=== PATIENT | female | born 1940 ===

== ENCOUNTER 2016-12-07 02:54 | Observation (INO) | payer MEDICARE ==
[2016-12-07 02:54] VITALS: BMI 26.7
[2016-12-07] MEDS ORDERED: Aspirin 325 mg EC Tablets PO STA (04:02)
[2016-12-07] MEDS ORDERED: Aspirin 325 mg EC Tablets PO ONE (04:07)
[2016-12-07 04:17] LABS: BASO % 0.1 % (0.0-2.0); EOS # 0.3 K/uL (0.0-0.7); EOS % 4.7 % (0.0-4.0); HEMATOCRIT 38.4 % (34.0-47.0); LYMPH # 1.2 K/uL (1.0-4.3); LYMPH % 18.1 % (20.0-40.0); MEAN CELL VOLUME 82.8 fL (81.0-99.0); MEAN CORPUSCULAR HEMOGLOBIN 27.5 pg (27.0-31.0); MEAN CORPUSCULAR HGB CONC 33.2 g/dL (33.0-37.0); MEAN PLATELET VOLUME 8.4 fL (7.2-11.7); MONO # 0.6 K/uL (0.0-0.8); MONO % 8.8 % (0.0-10.0); NRBC % 0.1 % (0.0-2.0); RED CELL DISTRIBUTION WIDTH 14.2 % (11.5-14.5); WHITE BLOOD COUNT 6.6 K/uL (4.8-10.8)
[2016-12-07 04:48] LABS: CHLORIDE 101 mmol/L (98-107); POTASSIUM 3.9 mmol/L (3.6-5.2); SODIUM 135 mmol/L (132-148)
[2016-12-07 04:50] LABS: ALKALINE PHOSPHATASE 111 U/L (38-126); AST/SGOT 43 U/L (14-36); BILIRUBIN,TOTAL 0.7 mg/dL (0.2-1.3); CARBON DIOXIDE 24 mmol/L (22-30); GFR AFRICAN-AMERICAN > 60; TOTAL PROTEIN 8.3 g/dL (6.3-8.3)
[2016-12-07 04:51] LABS: ALT/SGPT 30 U/L (9-52); BLOOD UREA NITROGEN 11 mg/dL (7-17); CALCIUM 9.5 mg/dl (8.6-10.4); GLUCOSE,RANDOM 124 mg/dL (65-105)
--- NOTE | 2016-12-07 04:54 | C.PDOC ---
History Of Present Illness 76 y/o female, PMHx including hypertension and heart disease, presents to ED with mid sternal chest pain. Patient reports that the chest pain is associated with dizziness and elevated BP. Patient notes she has been upset and anxious all day, since she spent mother's day alone, and got into an argument with her children. Otherwise, denies fever, chills, shortness of breath, nausea, vomiting , diaphoresis, numbness, weakness, trauma, or other associated symptoms. Time Seen by Provider: 12/07/16 03:38 Chief Complaint (Nursing): Dizziness/Lightheaded History Per: Patient History/Exam Limitations: no limitations Onset/Duration Of Symptoms: Hrs Current Symptoms Are (Timing): Still Present Seizure Or Post-ictal Symptoms: None Fall Associated With With Symptoms: No Recent travel outside of the [place]: No Past Medical History Reviewed: Historical Data, Nursing Documentation, Vital Signs Vital Signs: Last Vital Signs Temp 97.9 F 12/07/16 03:09 Pulse 78 12/07/16 06:16 Resp 18 12/07/16 06:16 BP 157/86 H 12/07/16 06:16 Pulse Ox 99 12/07/16 06:16 - Medical History PMH: Arthritis (gouty arthritis), CAD, HTN, Osteoporosis, Chronic Kidney Disease , Rheumatoid Arthritis Surgical History: Coronary Stent (x2) Family History: States: No Known Family Hx - Social History Hx Tobacco Use: No Hx Alcohol Use: No Hx Substance Use: No - Immunization History Hx Tetanus Toxoid Vaccination: No Hx Influenza Vaccination: No Hx Pneumococcal Vaccination: No Review Of Systems Except As Marked, All Systems Reviewed And Found Negative. Constitutional: Negative for: Fever, Chills Cardiovascular: Positive for: Chest Pain. Negative for: Palpitations Respiratory: Negative for: Cough, Shortness of Breath, Wheezing Gastrointestinal: Negative for: Nausea, Vomiting, Abdominal Pain Skin: Negative for: Rash Neurological: Positive for: Dizziness. Negative for: Headache Physical Exam - Physical Exam Appears: Non-toxic, No Acute Distress, Other (speaking in full sentences) Skin: Warm, Dry, No Diaphoretic Head: Atraumatic, Normacephalic Eye(s): bilateral: Normal Inspection, PERRL, EOMI Oral Mucosa: Moist Neck: Normal ROM, Supple Chest: Symmetrical Cardiovascular: Rhythm Regular, No Friction Rub, No Murmur Respiratory: Normal Breath Sounds, No Rales, No Rhonchi, No Wheezing Gastrointestinal/Abdominal: Soft, No Tenderness, No Guarding, No Rebound Back: Normal Inspection, No Vertebral Tenderness, No Paraspinal Tenderness Extremity: Normal ROM, No Calf Tenderness, Capillary Refill (< 2 sec. ), Other ( no tenderness or swelling to bilateral lower extremities) Extremity: Bilateral: Normal Color And Temperature Pulses: Left Radial: Normal, Right Radial: Normal, Left Dorsalis Pedis: Normal, Right Dorsalis Pedis: Normal Neurological/Psych: Oriented x3, Normal Speech, Normal Cognition, Normal Motor Gait: Steady ED Course And Treatment - Laboratory Results Result Diagrams: 12/07/16 04:12 12/07/16 04:30 ECG: Interpreted By Ia ECG Rhythm: Sinus Rhythm ECG Interpretation: Normal Rate From EC (bpm) O2 Sat by Pulse Oximetry: 99 (RA) Pulse Ox Interpretation: Normal - Radiology CXR: Interpreted by Me CXR Interpretation: Yes: No Acute Disease. No: Infiltrates Medical Decision Making Medical Decision Making: Patient reports that she had an outpatient MRI for headache and dizziness, as the dizziness has been constant for several weeks but does not know the results. Old records reviewed, the patient was last seen in the ED for chest pain 07/2015 and was admitted for observation. Aspirin and Nitro-paste ordered. Patient reports improvement after nitro-paste. The case was discussed with Dr. Ruggiero (covering for Dr. Eric) who states to admit the patient to hospitalist service. Case was discussed with Dr. Rodriguez who agrees to place the patient on Tele OBS. Disposition - Disposition Disposition: HOSPITALIZED Disposition Time: 06:44 Condition: FAIR - POA Present On Arrival: None - Clinical Impression Clinical Impression: Chest pain, Dizziness
[2016-12-07 04:56] LABS: ALB/GLOB RATIO 0.8 (1.0-2.1)
[2016-12-07] MEDS ORDERED: Nitroglycerin 2% Ointment Foilpak UD TOP ONE (05:22)
[2016-12-07] MEDS ORDERED: Nitroglycerin 2% Ointment Foilpak UD TOP STA (05:30)
--- NOTE | 2016-12-07 07:36 | CT ---
EXAM: CT Head Without Intravenous Contrast CLINICAL HISTORY: 76 years old, female; Signs and symptoms; Dizziness; Additional info: Headache, dizziness TECHNIQUE: Axial computed tomography images of the head/brain without intravenous contrast. This CT exam was performed using one or more of the following dose reduction techniques: automated exposure control, adjustment of the mA and/or kV according to patient size, and/or use of iterative reconstruction technique. EXAM DATE/TIME: 12/07/2016 6:38 AM COMPARISON: CT - HEAD W/O CONTRAST 07/30/2015 9:19:02 AM FINDINGS: There is no pathological intra-axial or extra-axial fluid collection. No edema, midline shift or mass effect is noted. There is normal trejo white differentiation. There foci of periventricular and subcortical white matter changes of small vessel ischemic changes. Senile basal ganglia calcifications are noted. There are vascular calcifications of the cavernous carotid arteries. Calvarium is unremarkable. Visualized paranasal sinuses are well aerated. IMPRESSION: 1. No acute cerebral hemorrhage or edema. 2. Small vessel ischemic disease.
--- NOTE | 2016-12-07 09:17 | RAD ---
HISTORY: chest pain COMPARISON: 09/18/2016 FINDINGS: LUNGS: No active pulmonary disease. PLEURA: No significant pleural effusion identified, no pneumothorax apparent. CARDIOVASCULAR: Normal. OSSEOUS STRUCTURES: No significant abnormalities. VISUALIZED UPPER ABDOMEN: Normal. OTHER FINDINGS: None. IMPRESSION: No active disease.
--- NOTE | 2016-12-07 11:23 | CP.PCM.CON ---
History of Present Illness - History of Present Illness History of Present Illness: 76 y/o female with Hx/o liver/kidney transplant, CAD/PTCA & stenting, HTN, gouty arthritis was admitted last night for c/o chest pain & severe dizziness Pt had Liver/ kidney Tx several yrs ago @ [facility] in [place] & is folowed in their Tx clinic On Tacrolimus only Past Patient History - Infectious Disease Hx of Infectious Diseases: None - Past Medical History & Family History Past Medical History?: Yes - Past Social History Smoking Status: Never Smoked - CARDIAC Hx Hypertension: Yes - PULMONARY Hx Tuberculosis: No - NEUROLOGICAL HX Cerebrovascular Accident: No Hx Seizures: No - RENAL Hx Chronic Kidney Disease: Yes - ENDOCRINE/METABOLIC Hx Endocrine Disorders: No - HEMATOLOGICAL/ONCOLOGICAL Hx Cancer: No Hx Human Immunodeficiency Virus (HIV): No - MUSCULOSKELETAL/RHEUMATOLOGICAL Hx Arthritis: Yes (gouty arthritis) Hx Falls: No Hx Osteoporosis: Yes Hx Rheumatoid Arthritis: Yes - GASTROINTESTINAL Hx Gastrointestinal Disorders: Yes Other/Comment: LIVER TRANSPLANT 20 years ago - GENITOURINARY/GYNECOLOGICAL Hx Sexually Transmitted Disorders: No - PSYCHIATRIC Hx Substance Use: No - SURGICAL HISTORY Hx Coronary Stent: Yes (x2) - ANESTHESIA Hx Anesthesia: Yes Hx Anesthesia Reactions: No Hx Malignant Hyperthermia: No Meds Allergies/Adverse Reactions: Allergies Allergy/AdvReac Type Severity Reaction Status Date / Time iodine Allergy Verified 12/07/16 03:17 Penicillins Allergy Verified 12/07/16 03:17 Sulfa (Sulfonamide Allergy Verified 12/07/16 03:17 Antibiotics) prednisone AdvReac Severe Verified 12/07/16 03:17 seafood Allergy Uncoded 12/07/16 03:17 - Medications Medications: Current Medications Amlodipine Besylate (Norvasc) 10 mg PO DAILY [facility] Last Admin: 12/07/16 09:49 Dose: 10 mg Aspirin (Aspirin Chewable) 81 mg PO DAILY [facility] Last Admin: 12/07/16 09:49 Dose: 81 mg Hydralazine HCl (Apresoline) 25 mg PO TID [facility] Labetalol HCl (Trandate) 100 mg PO BID [facility] Last Admin: 12/07/16 10:35 Dose: 100 mg Tacrolimus (Prograf Cap) 0.5 mg PO BID [facility] Last Admin: 12/07/16 10:35 Dose: 0.5 mg Zolpidem Tartrate (Ambien) 5 mg PO [facility] Physical Exam - Constitutional Appears: No Acute Distress - Head Exam Head Exam: ATRAUMATIC, NORMOCEPHALIC - Eye Exam Additional comments: No icterus Conjunctiva pink - ENT Exam ENT Exam: Mucous Membranes Moist - Neck Exam Additional comments: Neck supple - Respiratory Exam Additional comments: Lungs clear - Cardiovascular Exam Cardiovascular Exam: REGULAR RHYTHM - GI/Abdominal Exam GI & Abdominal Exam: Soft Additional comments: Nontender - Extremities Exam Additional comments: No edema or cyanosis - Neurological Exam Neurological exam: Alert, CN II-XII Intact, Oriented x3 Results - Vital Signs Recent Vital Signs: Last Vital Signs Temp 98 F 12/07/16 09:16 Pulse 78 12/07/16 09:16 Resp 20 12/07/16 09:16 BP 184/96 H 12/07/16 09:16 Pulse Ox 97 12/07/16 09:16 - Labs Result Diagrams: 12/07/16 04:12 12/07/16 04:30 Labs: Laboratory Results - last 24 hr 12/07/16 08:43 POC Glucose (mg/dL) 113 H Assessment & Plan - Assessment and Plan (Free Text) Assessment: ESRd s/p liver & kidney transplant Renal function has remained stable HTN CAD Plan: Control BP Continue to monitor renal function Mx oc chest pain per Cardiology
--- NOTE | 2016-12-07 11:33 | CON ---
DATE: 12/07/2016 HISTORY OF PRESENT ILLNESS: The patient is a 76-year-old female who has a history of hypert ension, status post liver and kidney transplant many years ago because of parasitic infestation in [place] country about a year ago. The patient also has history of coronary artery disease, status pos t left anterior descending stenting many years ago. She presented because of dizziness, followed by sharp chest pain and was noted to have uncontrolled hypertension. The patient denies any radiation o f her chest discomfort. The patient is experiencing an anxiety disorder. She lives by herself and d oes not usually get along with her family who lives in the [facility] because she does not like country living. There is no reported ventricular arrhythmia on the monitor, except for rare PVCs. The patie nt at this time denies any chest pain, dizziness, headache or shortness of breath. SOCIAL HISTORY: Nonsmoker, nondrinker. MEDICATIONS: Ambien 5 mg at bedtime, aspirin 81 mg once a day, Norvasc 10 mg once a day, Prograf 0.5 mg twice a day, labetalol 100 mg twice a day. REVIEW OF SYSTEMS: No nausea or vomiting. No fever or chills. PHYSICAL EXAMINATION: GENERAL: The patient is an elderly female who does not appear to be in acute distress. VITAL SIGNS: Blood pressure 184/96, heart rate 78, temperature 98, respirations 20. HEENT: Normocephalic. NECK: No JVD. CHEST: Clear. HEART: S1, S2 regular. ABDOMEN: Soft. EXTREMITIES: No edema. LABORATORY DATA: SMA-7 is within normal limits except for glucose 124. One set of troponins is nega tive. CBC: WBC 6.6, hemoglobin and hematocrit are 12.7 and 38.4, platelet count 203,000. Head CT scan without contrast revealed no acute findings, small vessel disease. EKG revealed sinus r hythm at a rate of 69. One PVC is noted. ASSESSMENT: 1. Atypical chest pain or myocardial infarction. 2. Uncontrolled hypertension. 3. History of coronary artery disease status post left anterior descending stenting many years ago. 4. History of liver and kidney transplant. RECOMMENDATIONS: Continue aspirin 81 mg once a day, Norvasc 10 mg once a day, labetalol 100 mg twice a day. Start hydralazine at 25 mg q. 8 hours. Obtain one more set of troponins as well as 12-lead EKG. Walter Cook MD cc: [id number] TT: 12/07/2016 11:32:37 Confirmation # [id number] Dictation # [id number] mn
--- NOTE | 2016-12-07 12:03 | CP.PCM.HP ---
<Yannick Weldon - Last Filed: 12/07/16 11:58> History of Present Illness - History of Present Illness History of Present Illness: This is a 76 yo female with past medical hx of kidney transplant, liver transplant, CAD presenting with chest pain x 1 day. Pain began about noon day prior. Pt at home walking around. Substernal, no radiation. Sensation is "pressure." [place] dizzy as well. Checked bp and systolic was in 200s. Went to walk to the store, still felt very dizzy with cp remaining. Decided to go to hospital. CP stopped once pt came to hospital, otherwise it was constant. Has happened before, around 's day. Could not say what was done for her at that time. Denies fevers, chills, vomiting, diarrhea. No sick contacts, no recent travel. No cough PMH: Kidney transplant, liver transplant, CAD, HTN PSH: Stent, transplants as above Current meds: zolpidem, tacrolimus, tramadol, labetalol, amlodipine FH: Heart dx in family. Social hx: No smoking, drinking, drugs. Lives in [place]. Born in [place]. Present on Admission - Present on Admission Any Indicators Present on Admission: No History of DVT/PE: No History of Uncontrolled Diabetes: No Urinary Catheter: No Decubitus Ulcer Present: No Review of Systems - Review of Systems All systems: reviewed and no additional remarkable complaints except Review of Systems: Negative except as per hpi. Past Patient History - Infectious Disease Hx of Infectious Diseases: None - Tetanus Immunizations Tetanus Immunization: Unknown - Past Medical History & Family History Past Medical History?: Yes Pertinent Family History: Heart dx - Past Social History Smoking Status: Never Smoked Chewing Tobacco Use: No Cigar Use: No Alcohol: None Drugs: Denies Home Situation {Lives}: Alone Domestic Violence: Negative - CARDIAC Hx Hypertension: Yes - PULMONARY Hx Tuberculosis: No - NEUROLOGICAL HX Cerebrovascular Accident: No Hx Seizures: No - RENAL Hx Chronic Kidney Disease: Yes - ENDOCRINE/METABOLIC Hx Endocrine Disorders: No - HEMATOLOGICAL/ONCOLOGICAL Hx Cancer: No Hx Human Immunodeficiency Virus (HIV): No - MUSCULOSKELETAL/RHEUMATOLOGICAL Hx Arthritis: Yes (gouty arthritis) Hx Falls: No Hx Osteoporosis: Yes Hx Rheumatoid Arthritis: Yes - GASTROINTESTINAL Hx Gastrointestinal Disorders: Yes Other/Comment: LIVER TRANSPLANT 20 years ago - GENITOURINARY/GYNECOLOGICAL Hx Sexually Transmitted Disorders: No - PSYCHIATRIC Hx Substance Use: No - SURGICAL HISTORY Hx Coronary Stent: Yes (x2) - ANESTHESIA Hx Anesthesia: Yes Hx Anesthesia Reactions: No Hx Malignant Hyperthermia: No Meds Allergies/Adverse Reactions: Allergies Allergy/AdvReac Type Severity Reaction Status Date / Time iodine Allergy Verified 12/07/16 03:17 Penicillins Allergy Verified 12/07/16 03:17 Sulfa (Sulfonamide Allergy Verified 12/07/16 03:17 Antibiotics) prednisone AdvReac Severe Verified 12/07/16 03:17 seafood Allergy Uncoded 12/07/16 03:17 Physical Exam - Constitutional Appears: Non-toxic, No Acute Distress - Head Exam Head Exam: ATRAUMATIC, NORMAL INSPECTION - Eye Exam Eye Exam: EOMI - ENT Exam ENT Exam: Mucous Membranes Moist - Neck Exam Neck exam: Positive for: Full Rom, Normal Inspection - Respiratory Exam Respiratory Exam: NORMAL BREATHING PATTERN. absent: Respiratory Distress - Cardiovascular Exam Cardiovascular Exam: REGULAR RHYTHM, +S1, +S2 - GI/Abdominal Exam GI & Abdominal Exam: Normal Bowel Sounds, Soft. absent: Tenderness - Extremities Exam Extremities exam: Positive for: full ROM, normal inspection - Back Exam Back exam: NORMAL INSPECTION - Neurological Exam Neurological exam: Alert, CN II-XII Intact, Oriented x3 - Psychiatric Exam Psychiatric exam: Normal Affect, Normal Mood - Skin Skin Exam: Dry, Intact, Normal Color, Warm Results - Vital Signs Recent Vital Signs: Last Vital Signs Temp 98 F 12/07/16 09:16 Pulse 78 12/07/16 09:16 Resp 20 12/07/16 09:16 BP 184/96 H 12/07/16 09:16 Pulse Ox 97 12/07/16 09:16 - Labs Result Diagrams: 12/07/16 04:12 12/07/16 04:30 Labs: Laboratory Results - last 24 hr 12/07/16 12/07/16 08:43 11:31 POC Glucose (mg/dL) 113 H Troponin I < 0.0120 Assessment & Plan - Assessment and Plan (Free Text) Assessment: This is a 76 yo female with pmh liver and kidney transplant, HTN, CAD presenting with cp x 1 day, now resolved 1. Chest pain, r/o acs -f/u troponins -f/u repeat ekg -1st trop negative -cardio consult. Dr. Ornelas. recs appreciated -ASA 81 daily -labetalol 100 bid -echo pending 2. Hx of transplants -continue tacrolimus .5 Bid -nephro consult. Dr. Eric. recs appreciated 3. Hx of HTN -amlodipine 10 daily -labetalol 100 bid GI/DVT ppx -protonix daily -SCDs discussed with Dr. Ugarte <Brandin Ugarte - Last Filed: 12/08/16 09:23> Results - Vital Signs Recent Vital Signs: Last Vital Signs Temp 98 F 12/07/16 09:16 Pulse 67 12/08/16 08:31 Resp 20 12/07/16 09:16 BP 184/96 H 12/07/16 09:16 Pulse Ox 97 12/07/16 09:16 - Labs Result Diagrams: 12/08/16 06:43 12/08/16 06:43 Labs: Laboratory Results - last 24 hr 12/07/16 12/07/16 12/07/16 11:31 12:16 17:30 WBC RBC Hgb Hct MCV MCH MCHC RDW Plt Count MPV Neut % (Auto) Lymph % (Auto) [place] % (Auto) Eos % (Auto) Baso % (Auto) Neut # Lymph # [place] # Eos # Baso # Sodium Potassium Chloride Carbon Dioxide Anion Gap BUN Creatinine Est GFR ( Amer) Est GFR (Non-Af Amer) POC Glucose (mg/dL) 127 H Random Glucose Calcium Magnesium Total Bilirubin AST ALT Alkaline Phosphatase Troponin I < 0.0120 < 0.0120 Total Protein Albumin Globulin Albumin/Globulin Ratio 12/08/16 12/08/16 06:43 06:43 WBC 5.5 RBC 4.77 Hgb 13.2 Hct 39.8 MCV 83.4 MCH 27.7 MCHC 33.2 RDW 14.4 Plt Count 205 MPV 8.3 Neut % (Auto) 52.0 Lymph % (Auto) 32.0 [place] % (Auto) 13.1 H Eos % (Auto) 2.2 Baso % (Auto) 0.7 Neut # 2.9 Lymph # 1.8 [place] # 0.7 Eos # 0.1 Baso # 0.0 Sodium 138 Potassium 3.6 Chloride 100 Carbon Dioxide 26 Anion Gap 15 BUN 13 Creatinine 1.0 Est GFR ( Amer) > 60 Est GFR (Non-Af Amer) 54 POC Glucose (mg/dL) Random Glucose 125 H Calcium 9.0 Magnesium 1.8 Total Bilirubin 0.9 AST 42 H ALT 33 Alkaline Phosphatase 104 Troponin I Total Protein 7.3 Albumin 3.5 Globulin 3.8 Albumin/Globulin Ratio 0.9 L Attending/Attestation - Attestation I have personally seen and examined this patient.: Yes I have fully participated in the care of the patient.: Yes I have reviewed all pertinent clinical information: Yes Notes (Text): Medical Attending: Patient was seen and examined by me. Agree with the above note by the medical sonographer. The patient has a substantial history including cardiac stenting in the past, liver, renal tissue transplant as well. The patient was having substatinal chest pain before comming to the hospital. When we saw her that morning the pain had subsided and she was ambulating in the ER. Because of the cardiac history will get cardiology evaluation and also nephrology evaluation as well. Will get additional cardiac enzymes as well as 2 decho ordered. thank you Brandin Ugarte
[2016-12-08 06:54] LABS: CHLORIDE 100 mmol/L (98-107); POTASSIUM 3.6 mmol/L (3.6-5.2); SODIUM 138 mmol/L (132-148)
[2016-12-08 06:56] LABS: BILIRUBIN,TOTAL 0.9 mg/dL (0.2-1.3); CARBON DIOXIDE 26 mmol/L (22-30); GFR AFRICAN-AMERICAN > 60
[2016-12-08 06:57] LABS: ALB/GLOB RATIO 0.9 (1.0-2.1); ALKALINE PHOSPHATASE 104 U/L (38-126); ALT/SGPT 33 U/L (9-52); AST/SGOT 42 U/L (14-36); BLOOD UREA NITROGEN 13 mg/dL (7-17); GLUCOSE,RANDOM 125 mg/dL (65-105); MAGNESIUM 1.8 mg/dL (1.6-2.3); TOTAL PROTEIN 7.3 g/dL (6.3-8.3)
[2016-12-08 07:08] LABS: BASO % 0.7 % (0.0-2.0); EOS # 0.1 K/uL (0.0-0.7); EOS % 2.2 % (0.0-4.0); HEMATOCRIT 39.8 % (34.0-47.0); LYMPH # 1.8 K/uL (1.0-4.3); MEAN CELL VOLUME 83.4 fL (81.0-99.0); MEAN CORPUSCULAR HEMOGLOBIN 27.7 pg (27.0-31.0); MEAN CORPUSCULAR HGB CONC 33.2 g/dL (33.0-37.0); MEAN PLATELET VOLUME 8.3 fL (7.2-11.7); MONO # 0.7 K/uL (0.0-0.8); MONO % 13.1 % (0.0-10.0); RED CELL DISTRIBUTION WIDTH 14.4 % (11.5-14.5); WHITE BLOOD COUNT 5.5 K/uL (4.8-10.8)
[2016-12-08 08:42] VITALS: PULSE 67
[2016-12-08 09:13] VITALS: BP 142/68; RESP 14; TEMP 97.8; O2SAT 100
--- NOTE | 2016-12-08 10:03 | CARD ---
APPROVED REPORT EXAM: Two-dimensional and M-mode echocardiogram with Doppler and color Doppler. Other Information Quality : GoodRhythm : NSR INDICATION Chest Pain Stent M-Mode DIMENSIONS Left Atrium (MM)4.10 (2.5-4.0cm)IVSd1.17 (0.7-1.1cm) Aortic Root3.67 (2.2-3.7cm)LVDd5.00 (4.0-5.6cm) Aortic Cusp Exc.1.13 (1.5-2.0cm)PWd1.25 (0.7-1.1cm) Aortic Valve AoV Peak Wceekyvl461.7cm/Sunny Peak GR.9mmHgAI P 1/2 [id number] Mitral Valve MV E Aitletiq56.4cm/sMV A Gnbylfzw159.4cm/sE/A ratio0.6 TDI E/Lateral E'0.0E/Medial E'0.0 Tricuspid Valve TR Peak Erjzgeja886uh/sTR Peak Gr.21gdFwNCME20pjVx <Conclusion> Left ventricle: thickness: upper limit of normal; size: normal; overall ejection fraction: 65%: diastolic filling pressures: elevated Mitral valve: annulus: discrete calcification: leaflets: mild calcific thickening; excursion: normal; no significant trans-mitral gradient: mild incompetence: left atrium: dilated Aortic valve: leaflets: mild calcific thickening: excursion: normal; no significant trans-aortic gradient: No significant incompetence: aortic root: upper limit of normal Right sided Structures: Pulmonary valve: normal; no significant incompetence; Tricuspid valve: normal; no significant incompetence: Intra-cardiac hemodynamics: pulmonary systolic pressures: normal; central venous pressures: normal No pericardial effusion
--- NOTE | 2016-12-08 11:30 | PN ---
DATE: 12/08/2016 The patient denies any chest pain, dizziness or headache. PHYSICAL EXAMINATION: VITAL SIGNS: Blood pressure 142/68, heart rate 67, temperature 97.8, respirations 14. HEENT: Normocephalic. NECK: No JVD. CHEST: Clear. HEART: S1, S2 regular. ABDOMEN: Soft. EXTREMITIES: No edema. LABORATORIES: Three sets of troponins are negative. Today's SMA-7 is within normal limits except fo r glucose of 125. CBC is within normal limits except for monocytes 13.1%. Repeat 12-lead EKG reveal ed normal sinus rhythm. Echocardiographic study official report: Ejection fraction 65%, diastolic f illing pressures elevated, mitral valve annular discrete calcification. Leaflets mild calcific thick ening, normal excursion ASSESSMENT: 1. Atypical chest pain, myocardial infarction is ruled out. 2. Uncontrolled hypertension. 3. Status post liver and kidney transplant. RECOMMENDATIONS: Continue Trandate 100 mg twice a day, Norvasc at 10 mg once a day, aspirin 81 mg on ce a day, hydralazine 25 mg t.i.d. No further cardiac workup is indicated at this time. Walter Cook MD cc: [id number] TT: 12/08/2016 11:29:54 Confirmation # [id number] Dictation # [id number] tn
--- NOTE | 2016-12-08 11:55 | CP.PCM.PN ---
Subjective - Date & Time of Evaluation Date of Evaluation: 12/08/16 Time of Evaluation: 11:30 - Subjective Subjective: No c/o CP or dizziness Objective - Vital Signs/Intake and Output Vital Signs (last 24 hours): Temp Pulse Resp BP Pulse Ox 97.8 F 67 14 142/68 100 12/08/16 09:11 12/08/16 09:24 12/08/16 09:11 12/08/16 09:11 12/08/16 09:11 Intake and Output: 12/08/16 12/08/16 06:59 18:59 Intake Total 300 Output Total 260 Balance 40 - Medications Medications: Current Medications Amlodipine Besylate (Norvasc) 10 mg PO DAILY [facility] Last Admin: 12/08/16 11:49 Dose: 10 mg Aspirin (Aspirin Chewable) 81 mg PO DAILY [facility] Last Admin: 12/08/16 11:49 Dose: 81 mg Hydralazine HCl (Apresoline) 25 mg PO TID [facility] Last Admin: 12/08/16 11:49 Dose: 25 mg Labetalol HCl (Trandate) 100 mg PO BID [facility] Last Admin: 12/08/16 11:49 Dose: 100 mg Pantoprazole Sodium (Protonix Inj) 40 mg IVP DAILY [facility] Last Admin: 12/08/16 11:48 Dose: 40 mg Tacrolimus (Prograf Cap) 0.5 mg PO BID [facility] Last Admin: 12/08/16 11:49 Dose: 0.5 mg Zolpidem Tartrate (Ambien) 5 mg PO HS [facility] Last Admin: 12/07/16 22:00 Dose: 5 mg - Labs Labs: 12/08/16 06:43 12/08/16 06:43 - Respiratory Exam Additional comments: Lungs clear - Cardiovascular Exam Cardiovascular Exam: REGULAR RHYTHM - Extremities Exam Additional comments: No edema Assessment and Plan - Assessment and Plan (Free Text) Assessment: ESRd, Liver, kidney transplant Renal function remains stable Continue current meds
--- NOTE | 2016-12-08 14:52 | CP.PCM.DIS ---
<Yannick Weldon - Last Filed: 12/08/16 14:55> Provider - Provider Date of Admission: 12/07/16 06:46 Attending physician: Ozzy Rodriguez MD Consults: 1. Cardio- Dr. Ornelas 2. Nephro- Dr. Ruggiero Time Spent in preparation of Discharge (in minutes): 45 Hospital Course - Lab Results Lab Results: Most Recent Lab Values WBC 5.5 K/uL (4.8-10.8) 12/08/16 06:43 RBC 4.77 Mil/uL (3.80-5.20) 12/08/16 06:43 Hgb 13.2 g/dL (11.0-16.0) 12/08/16 06:43 Hct 39.8 % (34.0-47.0) 12/08/16 06:43 MCV 83.4 fL (81.0-99.0) 12/08/16 06:43 MCH 27.7 pg (27.0-31.0) 12/08/16 06:43 MCHC 33.2 g/dL (33.0-37.0) 12/08/16 06:43 RDW 14.4 % (11.5-14.5) 12/08/16 06:43 Plt Count 205 K/uL (130-400) 12/08/16 06:43 MPV 8.3 fL (7.2-11.7) 12/08/16 06:43 Neut % (Auto) 52.0 % (50.0-75.0) 12/08/16 06:43 Lymph % (Auto) 32.0 % (20.0-40.0) 12/08/16 06:43 [place] % (Auto) 13.1 % (0.0-10.0) H 12/08/16 06:43 Eos % (Auto) 2.2 % (0.0-4.0) 12/08/16 06:43 Baso % (Auto) 0.7 % (0.0-2.0) 12/08/16 06:43 Neut # 2.9 K/uL (1.8-7.0) 12/08/16 06:43 Lymph # 1.8 K/uL (1.0-4.3) 12/08/16 06:43 [place] # 0.7 K/uL (0.0-0.8) 12/08/16 06:43 Eos # 0.1 K/uL (0.0-0.7) 12/08/16 06:43 Baso # 0.0 K/uL (0.0-0.2) 12/08/16 06:43 Sodium 138 mmol/L (132-148) 12/08/16 06:43 Potassium 3.6 mmol/L (3.6-5.2) 12/08/16 06:43 Chloride 100 mmol/L (98-107) 12/08/16 06:43 Carbon Dioxide 26 mmol/L (22-30) 12/08/16 06:43 Anion Gap 15 (10-20) 12/08/16 06:43 BUN 13 mg/dL (7-17) 12/08/16 06:43 Creatinine 1.0 MG/DL (0.7-1.2) 12/08/16 06:43 Est GFR ( Amer) > 60 12/08/16 06:43 Est GFR (Non-Af Amer) 54 12/08/16 06:43 POC Glucose (mg/dL) 127 mg/dL (65-110) H 12/07/16 12:16 Random Glucose 125 mg/dL (65-105) H 12/08/16 06:43 Calcium 9.0 mg/dl (8.6-10.4) 12/08/16 06:43 Magnesium 1.8 mg/dL (1.6-2.3) 12/08/16 06:43 Total Bilirubin 0.9 mg/dL (0.2-1.3) 12/08/16 06:43 AST 42 U/L (14-36) H 12/08/16 06:43 ALT 33 U/L (9-52) 12/08/16 06:43 Alkaline Phosphatase 104 U/L (38-126) 12/08/16 06:43 Troponin I < 0.0120 ng/mL (0.00-0.120) 12/07/16 17:30 Total Protein 7.3 g/dL (6.3-8.3) 12/08/16 06:43 Albumin 3.5 g/dL (3.5-5.0) 12/08/16 06:43 Globulin 3.8 gm/dL (2.2-3.9) 12/08/16 06:43 Albumin/Globulin Ratio 0.9 (1.0-2.1) L 12/08/16 06:43 - Hospital Course Hospital Course: Attending: Dr. Ugarte Consults 1. Cardio- Dr. Upton 2. Nephro- Dr. Ruggiero Discharge dx 1. Chest pain 2. Hx nephro/liver transplant 3. HTN Stable upon discharge Procedures- none No complications HPI: see h/p Lab : see lab data section Hospital course This is a 76 yo female with pmh liver and kidney transplant, HTN, CAD presenting with cp x 1 day, now resolved 1. Chest pain, r/o acs -f/u troponins>>> trops negative x 3 -f/u repeat ekg>>> repeat ekg NSR -cardio consult. Dr. Ornelas. recs appreciated -ASA 81 daily -labetalol 100 bid -echo pending -pt was started on hydralazine 2. Hx of transplants -continue tacrolimus .5 Bid -nephro consult. Dr. Eric. recs appreciated 3. Hx of HTN -amlodipine 10 daily -labetalol 100 bid -added hydralazine GI/DVT ppx -protonix daily -SCDs -pt will be given home rx for meclizine -On day of discharge, pt stable and feels better with no chest pain. Discharge meds: 1. norvasc 10 daily 2. asa 81 daily 3. hydralazine 25 TID 4. labetalol 100 bid 5. meclizine prn 6. tacrolimus .5 bid 7. ambien 10 hs 8. tramadol 50 bid Discharge instructions: Pt to resume all home meds with addn of hydralazine and meclizine prn. Pt to f/ u with nephro and cardio. Please return if condition worsens and please f/u with PMD within 3 days. - Date & Time of H&P Date of H&P: 12/08/16 Time of H&P: 14:45 Discharge Exam - Head Exam Head Exam: ATRAUMATIC, NORMAL INSPECTION Discharge Plan - Discharge Medications Prescriptions: hydrALAZINE [Apresoline] 25 mg PO TID #30 tab Meclizine [Meclizine*] 25 mg PO Q6 PRN #30 tab PRN Reason: Dizziness - Follow Up Plan Condition: FAIR Disposition: HOME/ ROUTINE Instructions: Chest Pain (DC), Syncope (DC), Syncope (GEN), How To Wash Your Hands (GEN), Dizziness (GEN) <Brandin Ugarte - Last Filed: 12/08/16 18:26> Provider - Provider Date of Admission: 12/07/16 06:46 Attending physician: Ozzy Rodriguez MD Hospital Course - Lab Results Lab Results: Most Recent Lab Values WBC 5.5 K/uL (4.8-10.8) 12/08/16 06:43 RBC 4.77 Mil/uL (3.80-5.20) 12/08/16 06:43 Hgb 13.2 g/dL (11.0-16.0) 12/08/16 06:43 Hct 39.8 % (34.0-47.0) 12/08/16 06:43 MCV 83.4 fL (81.0-99.0) 12/08/16 06:43 MCH 27.7 pg (27.0-31.0) 12/08/16 06:43 MCHC 33.2 g/dL (33.0-37.0) 12/08/16 06:43 RDW 14.4 % (11.5-14.5) 12/08/16 06:43 Plt Count 205 K/uL (130-400) 12/08/16 06:43 MPV 8.3 fL (7.2-11.7) 12/08/16 06:43 Neut % (Auto) 52.0 % (50.0-75.0) 12/08/16 06:43 Lymph % (Auto) 32.0 % (20.0-40.0) 12/08/16 06:43 [place] % (Auto) 13.1 % (0.0-10.0) H 12/08/16 06:43 Eos % (Auto) 2.2 % (0.0-4.0) 12/08/16 06:43 Baso % (Auto) 0.7 % (0.0-2.0) 12/08/16 06:43 Neut # 2.9 K/uL (1.8-7.0) 12/08/16 06:43 Lymph # 1.8 K/uL (1.0-4.3) 12/08/16 06:43 [place] # 0.7 K/uL (0.0-0.8) 12/08/16 06:43 Eos # 0.1 K/uL (0.0-0.7) 12/08/16 06:43 Baso # 0.0 K/uL (0.0-0.2) 12/08/16 06:43 Sodium 138 mmol/L (132-148) 12/08/16 06:43 Potassium 3.6 mmol/L (3.6-5.2) 12/08/16 06:43 Chloride 100 mmol/L (98-107) 12/08/16 06:43 Carbon Dioxide 26 mmol/L (22-30) 12/08/16 06:43 Anion Gap 15 (10-20) 12/08/16 06:43 BUN 13 mg/dL (7-17) 12/08/16 06:43 Creatinine 1.0 MG/DL (0.7-1.2) 12/08/16 06:43 Est GFR ( Amer) > 60 12/08/16 06:43 Est GFR (Non-Af Amer) 54 12/08/16 06:43 POC Glucose (mg/dL) 127 mg/dL (65-110) H 12/07/16 12:16 Random Glucose 125 mg/dL (65-105) H 12/08/16 06:43 Calcium 9.0 mg/dl (8.6-10.4) 12/08/16 06:43 Magnesium 1.8 mg/dL (1.6-2.3) 12/08/16 06:43 Total Bilirubin 0.9 mg/dL (0.2-1.3) 12/08/16 06:43 AST 42 U/L (14-36) H 12/08/16 06:43 ALT 33 U/L (9-52) 12/08/16 06:43 Alkaline Phosphatase 104 U/L (38-126) 12/08/16 06:43 Troponin I < 0.0120 ng/mL (0.00-0.120) 12/07/16 17:30 Total Protein 7.3 g/dL (6.3-8.3) 12/08/16 06:43 Albumin 3.5 g/dL (3.5-5.0) 12/08/16 06:43 Globulin 3.8 gm/dL (2.2-3.9) 12/08/16 06:43 Albumin/Globulin Ratio 0.9 (1.0-2.1) L 12/08/16 06:43 Attending/Attestation - Attestation I have personally seen and examined this patient.: Yes I have fully participated in the care of the patient.: Yes I have reviewed all pertinent clinical information, including history, physical exam and plan: Yes Notes (Text): 12/08/16 18:24 Medical Attending: Patient was seen and examined by me. She was evaluated by her leather dresser and pedodontist while here. Will DC to home. The patient reports she has a lot of stress at home. Her cardiac enzymes have been negative. She will need to follow up with her PMD. thank you Brandin Ugarte
--- NOTE | 2016-12-08 18:38 | CARD ---
APPROVED REPORT EKG Measurement Heart [id number] ND 186P50 [id number] <Conclusion> Normal sinus rhythm Normal ECG
--- NOTE | 2016-12-08 18:46 | CARD ---
APPROVED REPORT EKG Measurement Heart [id number] CO 188P43 [id number] <Conclusion> Sinus rhythm with occasional premature ventricular complexes Nonspecific ST abnormality Abnormal ECG
== END 2016-12-08 14:30 | disposition home or self-care (01) ==
LOC: C.ER 02:54 → C.9E 06:46 → C.9I 09:05
PROVIDERS: ADMIT Family Medicine; ATTEND Family Medicine
DX: R07.9 Chest pain, unspecified (principal); F41.9 Anxiety disorder, unspecified; M81.0 Age-related osteoporosis without current pathological fracture; Z94.0 Kidney transplant status; Z94.4 Liver transplant status; I10 Essential (primary) hypertension; I25.10 Atherosclerotic heart disease of native coronary artery without angina pectoris
CPT/HCPCS: 70450; 71010; 80053; 82948; 83735; 84484; 85025; 87081; 93005; 93306; 99285; C9113; G0378; J7507

== ENCOUNTER 2017-03-07 21:02 | Observation (INO) | payer MEDICARE ==
[2017-03-07 21:03] VITALS: BMI 26.7
[2017-03-07] MEDS ORDERED: Aspirin 325 mg EC Tablets PO STA (21:27)
[2017-03-07] MEDS ORDERED: Aspirin 325 mg EC Tablets PO ONE (21:50)
[2017-03-07 22:03] LABS: BASO % 0.7 % (0.0-2.0); EOS # 0.1 K/uL (0.0-0.7); EOS % 1.5 % (0.0-4.0); HEMATOCRIT 37.8 % (34.0-47.0); LYMPH # 1.6 K/uL (1.0-4.3); MEAN CELL VOLUME 81.9 fL (81.0-99.0); MEAN CORPUSCULAR HGB CONC 34.2 g/dL (33.0-37.0); MEAN PLATELET VOLUME 7.9 fL (7.2-11.7); MONO # 0.6 K/uL (0.0-0.8); MONO % 9.8 % (0.0-10.0); RED CELL DISTRIBUTION WIDTH 14.8 % (11.5-14.5); WHITE BLOOD COUNT 6.2 K/uL (4.8-10.8)
[2017-03-07 22:13] LABS: CHLORIDE 103 mmol/L (98-107)
[2017-03-07 22:14] LABS: POTASSIUM 4.1 mmol/L (3.6-5.2); SODIUM 141 mmol/L (132-148)
[2017-03-07 22:15] LABS: GFR AFRICAN-AMERICAN > 60
[2017-03-07 22:16] LABS: ALB/GLOB RATIO 0.9 (1.0-2.1); ALKALINE PHOSPHATASE 116 U/L (38-126); ALT/SGPT 35 U/L (9-52); AST/SGOT 35 U/L (14-36); BILIRUBIN,TOTAL 0.8 mg/dL (0.2-1.3); BLOOD UREA NITROGEN 15 mg/dL (7-17); CARBON DIOXIDE 25 mmol/L (22-30); GLUCOSE,RANDOM 101 mg/dL (65-105); TOTAL PROTEIN 7.9 g/dL (6.3-8.3)
--- NOTE | 2017-03-07 23:03 | C.PDOC ---
Time Seen by Provider: 03/07/17 21:10 Chief Complaint (Nursing): Chest Pain History Per: Patient Onset/Duration Of Symptoms: Hrs (Just ONCOLOGY RN) Current Symptoms Are (Timing): Better Context: Other (on bus ride from [place]) Severity: Moderate Quality: "Pain" Associated Symptoms: Dyspnea Modifying Factors: Other Indicated Below Alleviating Factors: None Additional History Per: Prior Records Past Medical History Reviewed: Historical Data, Nursing Documentation, Vital Signs Vital Signs: Last Vital Signs Temp 98.4 F 03/07/17 21:09 Pulse 75 03/07/17 21:09 Resp 18 03/07/17 21:09 BP 175/90 H 03/07/17 21:09 Pulse Ox 98 03/07/17 23:35 - Medical History PMH: Arthritis (gouty arthritis), CAD, HTN, Osteoporosis, Chronic Kidney Disease , Rheumatoid Arthritis Surgical History: Coronary Stent (x1) Other Surgeries: Liver and Kidney transplants Family History: States: Unknown Family Hx - Social History Hx Tobacco Use: No Hx Alcohol Use: No Hx Substance Use: No - Immunization History Hx Tetanus Toxoid Vaccination: No Hx Influenza Vaccination: No Hx Pneumococcal Vaccination: No Review Of Systems Except As Marked, All Systems Reviewed And Found Negative. Constitutional: Negative for: Fever, Weakness Cardiovascular: Positive for: Chest Pain Respiratory: Positive for: Shortness of Breath. Negative for: Hemoptysis Gastrointestinal: Positive for: Nausea. Negative for: Vomiting, Abdominal Pain Musculoskeletal: Negative for: Neck Pain, Back Pain, Leg Pain Skin: Negative for: Rash Neurological: Negative for: Weakness, Numbness, Seizures Physical Exam - Physical Exam Appears: Non-toxic, No Acute Distress Skin: Normal Color, Warm, Dry, No Rash Head: Atraumatic, Normacephalic Eye(s): bilateral: Normal Inspection, PERRL, EOMI Neck: Normal ROM, Supple Chest: Symmetrical, No Deformity Cardiovascular: Rhythm Regular Respiratory: Normal Breath Sounds, No Accessory Muscle Use Gastrointestinal/Abdominal: Soft, No Tenderness Back: No CVA Tenderness Extremity: Normal ROM, Pedal Edema, No Calf Tenderness Neurological/Psych: Oriented x3, Normal Motor, Normal Sensation ED Course And Treatment - Laboratory Results Result Diagrams: 03/07/17 21:54 03/07/17 21:54 Lab Interpretation: No Acute Changes ECG: Interpreted By Me, Viewed By Me ECG Rhythm: Sinus Rhythm, Nonspecific Changes ECG Interpretation: No Acute Changes, No Changes From Prior Rate From EC O2 Sat by Pulse Oximetry: 98 Pulse Ox Interpretation: Normal - Radiology CXR: Interpreted by Me, Viewed By Me CXR Interpretation: Yes: No Acute Disease - Physician Consult Information Physician Contacted: Walter Cook (Cardiology) Outcome Of Conversation: He wants pt placed on medical on-call physician's service. Progress - Interventions Interventions:: Observation, Oxygen - Medications Administered Oral: Antihypertensive, Aspirin - Data Reviewed Data Reviewed: Lab, Diagnostic imaging, EKG, Old records - Patient Status Patient status: Mostly improved - Continuity of Care Discussed patient case with:: Patient, ED Nurse Discussed pt. case with cleaning validation consultant/specialty: Cardiology Disposition Discussed With DrRaquel: Dee Torres Comment: He accepted pt on his service and gave admission orders to the nurse. Doctor Will See Patient In The: Hospital Counseled Patient/Family Regarding: Studies Performed, Diagnosis - Disposition Disposition: HOSPITALIZED Disposition Time: 23:55 Condition: FAIR - Clinical Impression Clinical Impression: Acute chest pain, CAD (coronary artery disease), Hypertension
[2017-03-08] MEDS ORDERED: Home Med 1 UNIT (Zolpidem [Ambien] 10 MG) PO SCH (01:00)
[2017-03-08 04:23] LABS: INR 1.1
[2017-03-08 06:53] VITALS: PULSE 62; O2SAT 96
[2017-03-08 07:45] VITALS: BP 138/70; RESP 17; TEMP 97.6
[2017-03-08] MEDS ORDERED: Enoxaparin 40 mg Syringe SC ONE (10:00)
[2017-03-08] MEDS ORDERED: Pantoprazole 40 mg EC Tab PO SCH (10:00)
--- NOTE | 2017-03-08 12:01 | RAD ---
PROCEDURE: CHEST RADIOGRAPH, 1 VIEW HISTORY: chest pain COMPARISON: Comparison made with chest radiograph 12/07/2016 FINDINGS: LUNGS: Clear. PLEURA: No pneumothorax or pleural fluid seen. CARDIOVASCULAR: Normal. OSSEOUS STRUCTURES: No significant abnormalities. VISUALIZED UPPER ABDOMEN: Normal. OTHER FINDINGS: None. IMPRESSION: No active disease.
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
--- NOTE | 2017-03-08 20:56 | CARD ---
APPROVED REPORT EKG Measurement Heart [id number] PA 184P21 [id number] <Conclusion> Normal sinus rhythm Nonspecific ST abnormality Abnormal ECG
== END 2017-03-08 09:10 | disposition left against medical advice (07) ==
LOC: C.ER 21:02 → C.9E 23:56
PROVIDERS: ADMIT Internal Medicine Nephrology; ATTEND Internal Medicine Nephrology
DX: R07.89 Other chest pain (principal); I12.9 Hypertensive chronic kidney disease with stage 1 through stage 4 chronic kidney disease, or unspecified chronic kidney disease; M10.9 Gout, unspecified; N18.9 Chronic kidney disease, unspecified; Z94.4 Liver transplant status
CPT/HCPCS: 36415; 71010; 80053; 83880; 84484; 85025; 85610; 85730; 93005; G0378

== ENCOUNTER 2017-03-18 12:24 | Emergency (ER) | payer MEDICARE ==
[2017-03-18 12:26] VITALS: BMI 26.7
[2017-03-18 13:06] VITALS: RESP 20
[2017-03-18] MEDS ORDERED: Sodium Chloride 0.9% 1,000 ML IV ONE (13:16)
[2017-03-18] MEDS ORDERED: Sodium Chloride 0.9% 1,000 ML ONE (13:29)
[2017-03-18 13:47] LABS: BASO # 0.1 K/uL (0.0-0.2); BASO % 0.8 % (0.0-2.0); EOS # 0.1 K/uL (0.0-0.7); EOS % 1.1 % (0.0-4.0); HEMATOCRIT 42.5 % (34.0-47.0); LYMPH # 1.6 K/uL (1.0-4.3); LYMPH % 22.9 % (20.0-40.0); MEAN CELL VOLUME 82.5 fL (81.0-99.0); MEAN CORPUSCULAR HEMOGLOBIN 27.7 pg (27.0-31.0); MEAN CORPUSCULAR HGB CONC 33.6 g/dL (33.0-37.0); MEAN PLATELET VOLUME 8.3 fL (7.2-11.7); MONO # 0.7 K/uL (0.0-0.8); MONO % 10.8 % (0.0-10.0); NRBC % 0.1 % (0.0-2.0); RED CELL DISTRIBUTION WIDTH 15.3 % (11.5-14.5); WHITE BLOOD COUNT 6.9 K/uL (4.8-10.8)
[2017-03-18 14:02] LABS: CHLORIDE 104 mmol/L (98-107); SODIUM 138 mmol/L (132-148)
[2017-03-18 14:03] LABS: POTASSIUM 4.5 mmol/L (3.6-5.2)
[2017-03-18 14:05] LABS: ALB/GLOB RATIO 0.8 (1.0-2.1); ALKALINE PHOSPHATASE 87 U/L (38-126); ALT/SGPT 31 U/L (9-52); AST/SGOT 27 U/L (14-36); BILIRUBIN,TOTAL 0.9 mg/dL (0.2-1.3); BLOOD UREA NITROGEN 14 mg/dL (7-17); CARBON DIOXIDE 22 mmol/L (22-30); GFR AFRICAN-AMERICAN > 60; GLUCOSE,RANDOM 109 mg/dL (65-105); TOTAL PROTEIN 8.2 g/dL (6.3-8.3)
[2017-03-18 14:06] LABS: CALCIUM 10.4 mg/dl (8.6-10.4)
--- NOTE | 2017-03-18 14:54 | C.PDOC ---
Time Seen by Provider: 03/18/17 13:09 Chief Complaint (Nursing): GI Problem History Per: Patient Onset/Duration Of Symptoms: Days (2) Current Symptoms Are (Timing): Still Present Severity: Moderate Location Of Pain/Discomfort: Diffuse, Epigastric Radiation Of Pain To:: None Quality Of Discomfort: Cramping Associated Symptoms: Diarrhea Alleviating Factors: None Last Bowel Movement: Today Recent travel outside of the [place]: No Additional History Per: Prior Records Abnormal Vaginal Bleeding: No Past Medical History Reviewed: Historical Data, Nursing Documentation, Vital Signs Vital Signs: Last Vital Signs Temp 98.1 F 03/18/17 12:58 Pulse 96 H 03/18/17 12:58 Resp 20 03/18/17 12:58 BP 113/90 03/18/17 12:58 Pulse Ox 96 03/18/17 14:53 - Medical History PMH: Arthritis (gouty arthritis), CAD, HTN, Osteoporosis, Chronic Kidney Disease , Rheumatoid Arthritis Surgical History: Coronary Stent (x1) Other Surgeries: Liver and Kidney transplants Family History: States: Unknown Family Hx - Social History Hx Tobacco Use: No Hx Alcohol Use: No Hx Substance Use: No - Immunization History Hx Tetanus Toxoid Vaccination: No Hx Influenza Vaccination: No Hx Pneumococcal Vaccination: No Review Of Systems Except As Marked, All Systems Reviewed And Found Negative. Constitutional: Negative for: Fever, Weakness Cardiovascular: Negative for: Chest Pain Respiratory: Negative for: Shortness of Breath Gastrointestinal: Positive for: Abdominal Pain, Diarrhea, Other (Pt states her diarrhea is dark in color after she started taking Pepto-Bismol). Negative for : Vomiting Genitourinary: Negative for: Dysuria Musculoskeletal: Negative for: Neck Pain, Back Pain Skin: Negative for: Rash Neurological: Negative for: Weakness, Numbness, Seizures, Altered Mental Status Physical Exam - Physical Exam Appears: Non-toxic, No Acute Distress Skin: Normal Color, Warm, Dry, No Rash Head: Atraumatic, Normacephalic Eye(s): bilateral: Normal Inspection, PERRL, EOMI Oral Mucosa: Moist Neck: Normal ROM, Supple Cardiovascular: Rhythm Regular Respiratory: Normal Breath Sounds, No Accessory Muscle Use Gastrointestinal/Abdominal: Soft, No Tenderness, No Distention Back: No CVA Tenderness Extremity: Normal ROM Neurological/Psych: Oriented x3, Normal Cognition, Normal Motor, Normal Sensation ED Course And Treatment - Laboratory Results Result Diagrams: 03/18/17 13:39 03/18/17 13:39 Lab Interpretation: No Acute Changes O2 Sat by Pulse Oximetry: 96 Pulse Ox Interpretation: Normal Progress Note: Pt feels much better and wants to go home. Tolerating po. No abdominal pain. Reassessment Condition: Improved Progress - Interventions Interventions:: Observation, Intravenous fluid - Medications Administered Intravenous: H-2 gregor - Data Reviewed Data Reviewed: Lab, Old records - Patient Status Patient status: Mostly improved - Continuity of Care Discussed patient case with:: Patient, ED Nurse - Patient Plan Patient Plan: Discharge, F/U with PCP, Continue present meds Disposition Counseled Patient/Family Regarding: Studies Performed, Diagnosis, Need For Followup, Rx Given - Disposition Referrals: Reji Ruggiero MD [Staff Provider] - Disposition: HOME/ ROUTINE Disposition Time: 15:32 Condition: IMPROVED Additional Instructions: Drink plenty of fluids. Follow up with your doctor. Return to the ER if you develop fever, vomiting, dizziness, worsening of symptoms or if you have any other concerns. Prescriptions: Famotidine [Pepcid] 20 mg PO BID #30 tab Instructions: Acute Diarrhea (ED) Forms: [employer] (Czech) - Clinical Impression Clinical Impression: Diarrhea
[2017-03-18 15:47] VITALS: BP 160/87; PULSE 76; TEMP 98; O2SAT 97
== END 2017-03-18 15:46 | disposition home or self-care (01) ==
LOC: C.ER 12:24
DX: R19.7 Diarrhea, unspecified (principal)
CPT/HCPCS: 80053; 83690; 85025; 96361; 96374; 99283; J7040

== ENCOUNTER 2017-04-27 21:07 | Observation (INO) | payer MEDICARE ==
[2017-04-27 21:07] VITALS: BMI 26.7
[2017-04-27] MEDS ORDERED: Sodium Chloride 0.9% 1,000 ML IV ONE (21:27)
--- NOTE | 2017-04-27 21:28 | C.PDOC ---
History Of Present Illness 76 y/o female presents to emergency department with complaint of lower substernal chest pain which started after seeing her brother, who she has not seen for the past 5 years, earlier tonight. Patient described pain as pressure, localized to substernal area. She reports past history of cardiac heart problems. Otherwise, denies fever, chills, nausea, vomiting, SOB, palpitations, headache, dizziness, or other associated symptoms. Chief Complaint (Nursing): Abdominal Pain History Per: Patient History/Exam Limitations: no limitations Onset/Duration Of Symptoms: Days Current Symptoms Are (Timing): Still Present Radiation Of Pain To:: None Quality Of Discomfort: Pressure, "Pain" Associated Symptoms: denies: Fever, Chills, Vomiting, Diarrhea Recent travel outside of the [place]: No Past Medical History Reviewed: Historical Data, Nursing Documentation, Vital Signs Vital Signs: Last Vital Signs Temp 98.0 F 04/28/17 01:41 Pulse 82 04/28/17 01:41 Resp 18 04/28/17 01:41 BP 141/77 04/28/17 01:41 Pulse Ox 98 04/28/17 02:42 - Medical History PMH: Arthritis (gouty arthritis), CAD, HTN, Osteoporosis, Chronic Kidney Disease , Rheumatoid Arthritis Surgical History: Coronary Stent (x1) Family History: States: Unknown Family Hx - Social History Hx Tobacco Use: No Hx Alcohol Use: No Hx Substance Use: No - Immunization History Hx Tetanus Toxoid Vaccination: No Hx Influenza Vaccination: No Hx Pneumococcal Vaccination: No Review Of Systems Except As Marked, All Systems Reviewed And Found Negative. Constitutional: Negative for: Fever, Chills Cardiovascular: Positive for: Chest Pain. Negative for: Palpitations Respiratory: Negative for: Cough, Shortness of Breath, Wheezing Gastrointestinal: Negative for: Nausea, Vomiting, Abdominal Pain Skin: Negative for: Rash Neurological: Negative for: Headache, Dizziness Physical Exam - Physical Exam Appears: Non-toxic, No Acute Distress Skin: Normal Color, Warm, Dry Head: Atraumatic, Normacephalic Oral Mucosa: Moist Neck: Supple Chest: Symmetrical, Tenderness (anterior chest wall) Cardiovascular: Rhythm Regular Respiratory: Normal Breath Sounds, No Accessory Muscle Use, No Rales, No Rhonchi , No Wheezing Gastrointestinal/Abdominal: Soft, No Tenderness, No Guarding, No Rebound Back: Normal Inspection Extremity: Normal ROM, Capillary Refill (< 2 sec.) Neurological/Psych: Oriented x3, Normal Speech, Normal Cognition ED Course And Treatment - Laboratory Results Result Diagrams: 04/27/17 21:34 04/27/17 21:34 ECG: Interpreted By Me, Viewed By Me ECG Rhythm: Sinus Rhythm ECG Interpretation: No Acute Changes, Abnormal Interpretation Of ECG: NSR, LVH Rate From EC O2 Sat by Pulse Oximetry: 98 (RA) Pulse Ox Interpretation: Normal - Radiology CXR: Interpreted by Me, Viewed By Me CXR Interpretation: Yes: No Acute Disease, Other (normal chest film). No: Infiltrates Progress Note: EKG, CxR, bloodwork including D-dimer and troponin ordered. Treated with Xanax, Toradol, IVFs. Dr. Chauhdary was called regarding admission, he referred the case to hospitalist. Dr. Rodriguez, hospitalist case consultant, referred case to medical case consultant. Dr. Hernandez accepts patient to his services. Disposition Discussed With .: Yoni Hernandez Doctor Will See Patient In The: Hospital Counseled Patient/Family Regarding: Diagnosis - Disposition Disposition: HOSPITALIZED Disposition Time: 02:42 Condition: STABLE Forms: [employer] (Syrian) - POA Present On Arrival: None - Clinical Impression Clinical Impression: Chest pain - Scribe Statement The provider has reviewed the documentation as recorded by the Scribnaren Frausto All medical record entries made by the Harleyibnaren were at my direction and personally dictated by me. I have reviewed the chart and agree that the record accurately reflects my personal performance of the history, physical exam, medical decision making, and the department course for this patient. I have also personally directed, reviewed, and agree with the discharge instructions and disposition.
[2017-04-27 21:45] LABS: BASO % 0.6 % (0.0-2.0); EOS # 0.1 K/uL (0.0-0.7); EOS % 1.4 % (0.0-4.0); HEMATOCRIT 36.5 % (34.0-47.0); LYMPH # 1.9 K/uL (1.0-4.3); LYMPH % 27.7 % (20.0-40.0); MEAN CELL VOLUME 82.2 fL (81.0-99.0); MEAN CORPUSCULAR HEMOGLOBIN 28.7 pg (27.0-31.0); MEAN CORPUSCULAR HGB CONC 34.9 g/dL (33.0-37.0); MONO # 0.8 K/uL (0.0-0.8); MONO % 11.2 % (0.0-10.0); NRBC % 0.1 % (0.0-2.0); RED CELL DISTRIBUTION WIDTH 14.7 % (11.5-14.5); WHITE BLOOD COUNT 6.9 K/uL (4.8-10.8)
[2017-04-27 21:47] LABS: CHLORIDE 100 mmol/L (98-107)
[2017-04-27 21:48] LABS: POTASSIUM 3.9 mmol/L (3.6-5.2); SODIUM 135 mmol/L (132-148)
[2017-04-27 21:50] LABS: AST/SGOT 32 U/L (14-36); BILIRUBIN,TOTAL 0.8 mg/dL (0.2-1.3); BLOOD UREA NITROGEN 19 mg/dL (7-17); CARBON DIOXIDE 21 mmol/L (22-30); GFR AFRICAN-AMERICAN > 60; TOTAL PROTEIN 8.6 g/dL (6.3-8.3)
[2017-04-27 21:51] LABS: ALKALINE PHOSPHATASE 131 U/L (38-126); ALT/SGPT 30 U/L (9-52); CALCIUM 10.2 mg/dl (8.6-10.4); GLUCOSE,RANDOM 114 mg/dL (65-105)
[2017-04-27] MEDS ORDERED: Iodixanol 320 MG/ML 100 ML BOTTLE IV ONE (23:45)
--- NOTE | 2017-04-28 00:38 | CT ---
EXAM: CT Angiography Chest With Intravenous Contrast CLINICAL HISTORY: 76 years old, female; Pain; Chest pain; Additional info: Chest pain/ elevated d-dimer TECHNIQUE: Axial computed tomographic angiography images of the chest with intravenous contrast using pulmonary embolism protocol. All CT scans at this facility use one or more dose reduction techniques, viz.: automated exposure control; ma/kV adjustment per patient size (including targeted exams where dose is matched to indication; i.e. head); or iterative reconstruction technique. MIP reconstructed images were created and reviewed. Coronal and sagittal reformatted images were created and reviewed. CONTRAST: 100 mL of [id number] administered intravenously. COMPARISON: CR - CHEST ONE VIEW 07/29/2015 2:31:40 PM FINDINGS: Pulmonary arteries: No pulmonary embolism. Aorta: No thoracic aortic aneurysm. Calcified atherosclerotic disease. Lungs: No mass. No consolidation. Trace bibasilar atelectasis. Pleural spaces: No significant effusion. No pneumothorax. Heart: No cardiomegaly. No significant pericardial effusion. No evidence of right heart dysfunction. Bones: No acute fracture. Lymph nodes: No pathologically enlarged lymph nodes. IMPRESSION: No pulmonary embolism. Trace bibasilar atelectasis, the lungs are otherwise clear.
[2017-04-28] MEDS ORDERED: ACETAMINOPHEN PO PRN ×2 (02:43→13:27)
[2017-04-28] MEDS ORDERED: TRAMADOL HCL PO PRN ×2 (02:43→13:27)
--- NOTE | 2017-04-28 08:03 | RAD ---
HISTORY: chest pain COMPARISON: Portable chest 03/07/2017. TECHNIQUE: Chest PA and lateral FINDINGS: LUNGS: No active pulmonary disease. PLEURA: No significant pleural effusion identified. No pneumothorax apparent. CARDIOVASCULAR: Normal. OSSEOUS STRUCTURES: No significant abnormalities. VISUALIZED UPPER ABDOMEN: Normal. OTHER FINDINGS: None. IMPRESSION: No interval acute cardiopulmonary disease appreciated.
[2017-04-28 08:41] LABS: CHOLESTEROL 162 mg/dL (0-199)
[2017-04-28] MEDS: Enoxaparin 40 mg Syringe SC SCH (10:38)
--- NOTE | 2017-04-28 19:33 | CP.PCM.CON ---
<MANDIENICHOLASSAHARA - Last Filed: 04/28/17 19:20> History of Present Illness - History of Present Illness History of Present Illness: Mela Mckinney DO PGY1 - Cardiology Consult Note for Dr. 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 Presented to ER complaining of chest pain. She reports that this chest pain was associated with anxiety. It started when she saw her brother for the first time in 5 years and noted him to look sickly; did not radiate; left sided substernal pressure; resolved after about 30 minutes spontaneously; no particular exacerbating or remitting factors. Patient has this sort of pain frequently, associated with stressful situations or anxiety, and has presented to the hospital multiple times for the same, with negative cardiac workups previously. Has previously documented EKG's and Echo's , but no recently documented stress tests. She currently denies any CP, SOB, dizziness, palpitations, GUERRA. She reports that she normally see's Dr. Cook, and last visited him in his office 5 months ago. 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 PSH: transplants in adolescence Meds: See MAR Soc: Denies smoking, drinking, drugs All: Penicillin, Sulfa, Prednisone, iodine ROS: Negative, as in HPI Past Patient History - Infectious Disease Hx of Infectious Diseases: None - Tetanus Immunizations Tetanus Immunization: Unknown - Past Medical History & Family History Past Medical History?: Yes - Past Social History Smoking Status: Never Smoked - CARDIAC Hx Angina: Yes Hx Hypertension: Yes Other/Comment: 2 Stents - PULMONARY Hx Respiratory Disorders: No Hx Tuberculosis: No - NEUROLOGICAL Hx Neurological Disorder: No Hx Seizures: No - HEENT Hx HEENT Problems: No Other/Comment: Eliseo eye implants - RENAL Hx Chronic Kidney Disease: Yes Other/Comment: Kidney Failure-transplant - ENDOCRINE/METABOLIC Hx Endocrine Disorders: No - HEMATOLOGICAL/ONCOLOGICAL Hx Blood Disorders: Yes Hx Anemia: Yes Hx Blood Transfusions: Yes (25 years ago) Hx Human Immunodeficiency Virus (HIV): No - INTEGUMENTARY Hx Dermatological Problems: No - MUSCULOSKELETAL/RHEUMATOLOGICAL Hx Musculoskeletal Disorders: No Hx Falls: No - GASTROINTESTINAL Hx Gastrointestinal Disorders: No Other/Comment: LIVER TRANSPLANT - GENITOURINARY/GYNECOLOGICAL Hx Genitourinary Disorders: No Hx Sexually Transmitted Disorders: No - PSYCHIATRIC Hx Psychophysiologic Disorder: Yes Hx Anxiety: Yes Hx Substance Use: No - SURGICAL HISTORY Hx Surgeries: Yes Hx Coronary Stent: Yes (x1) Hx Kidney Transplant: Yes (L kidney) Hx Liver Transplant: Yes - ANESTHESIA Hx Anesthesia: Yes Hx Anesthesia Reactions: No Hx Malignant Hyperthermia: No Has any member of the family had a problem w/ anesthesia?: No Meds Allergies/Adverse Reactions: Allergies Allergy/AdvReac Type Severity Reaction Status Date / Time iodine Allergy Verified 04/27/17 21:19 Penicillins Allergy Verified 04/27/17 21:19 Sulfa (Sulfonamide Allergy Verified 04/27/17 21:19 Antibiotics) prednisone AdvReac Severe Verified 04/27/17 21:19 seafood Allergy Uncoded 12/07/16 03:17 - Medications Medications: Current Medications Amlodipine Besylate (Norvasc) 10 mg PO DAILY [facility] Last Admin: 04/28/17 10:38 Dose: 10 mg Clonazepam (Klonopin) 0.5 mg PO BID [facility] Last Admin: 04/28/17 18:11 Dose: 0.5 mg Enoxaparin Sodium (Lovenox) 40 mg SC DAILY [facility] Last Admin: 04/28/17 10:38 Dose: 40 mg Famotidine (Pepcid) 20 mg PO DAILY [facility] Last Admin: 04/28/17 18:15 Dose: 20 mg Labetalol HCl (Trandate) 100 mg PO BID [facility] Last Admin: 04/28/17 18:12 Dose: 100 mg Pneumococcal Polyvalent Vaccine (Pneumovax 23 Vaccine) 0.5 ml IM .ONCE ONE Stop: 05/01/17 14:01 Tacrolimus (Prograf Cap) 0.5 mg PO BID [facility] Last Admin: 04/28/17 18:12 Dose: 0.5 mg Zolpidem Tartrate (Ambien) 5 mg PO [facility] Physical Exam - Constitutional Appears: Non-toxic, No Acute Distress - Head Exam Head Exam: ATRAUMATIC, NORMOCEPHALIC - Eye Exam Eye Exam: EOMI, Normal appearance - ENT Exam ENT Exam: Mucous Membranes Moist - Neck Exam Neck exam: Positive for: Full Rom, Normal Inspection - Respiratory Exam Respiratory Exam: Clear to Auscultation Bilateral. absent: Rales, Rhonchi, Wheezes - Cardiovascular Exam Cardiovascular Exam: RRR, +S1, +S2 - GI/Abdominal Exam GI & Abdominal Exam: Normal Bowel Sounds, Soft. absent: Tenderness - Extremities Exam Extremities exam: Negative for: calf tenderness, pedal edema - Neurological Exam Neurological exam: Alert, Oriented x3 - Psychiatric Exam Psychiatric exam: Normal Affect, Normal Mood - Skin Skin Exam: Dry, Intact Results - Vital Signs Recent Vital Signs: Last Vital Signs Temp 97.8 F 04/28/17 15:10 Pulse 72 04/28/17 15:10 Resp 20 04/28/17 15:10 BP 154/77 H 04/28/17 15:10 Pulse Ox 97 04/28/17 15:10 - Labs Result Diagrams: 04/27/17 21:34 04/27/17 21:34 Labs: Laboratory Results - last 24 hr 04/27/17 04/27/17 04/27/17 21:34 21:34 21:34 WBC 6.9 RBC 4.44 Hgb 12.7 Hct 36.5 MCV 82.2 MCH 28.7 MCHC 34.9 RDW 14.7 H Plt Count 221 MPV 8.0 Neut % (Auto) 59.1 Lymph % (Auto) 27.7 Leake % (Auto) 11.2 H Eos % (Auto) 1.4 Baso % (Auto) 0.6 Neut # 4.1 Lymph # 1.9 Leake # 0.8 Eos # 0.1 Baso # 0.0 D-Dimer, Quantitative 319 H Sodium 135 Potassium 3.9 Chloride 100 Carbon Dioxide 21 L Anion Gap 18 BUN 19 H Creatinine 1.0 Est GFR ( Amer) > 60 Est GFR (Non-Af Amer) 54 Random Glucose 114 H Calcium 10.2 Total Bilirubin 0.8 AST 32 ALT 30 Alkaline Phosphatase 131 H Total Creatine Kinase CK-MB (Mass) Troponin I < 0.0120 Troponin I, Quant NT-Pro-B Natriuret Pep Total Protein 8.6 H Albumin 4.2 Globulin 4.4 H Albumin/Globulin Ratio 1.0 Triglycerides Cholesterol LDL Cholesterol Direct HDL Cholesterol 04/28/17 04/28/17 04/28/17 07:55 11:39 17:12 WBC RBC Hgb Hct MCV MCH MCHC RDW Plt Count MPV Neut % (Auto) Lymph % (Auto) Leake % (Auto) Eos % (Auto) Baso % (Auto) Neut # Lymph # Leake # Eos # Baso # D-Dimer, Quantitative Sodium Potassium Chloride Carbon Dioxide Anion Gap BUN Creatinine Est GFR ( Amer) Est GFR (Non-Af Amer) Random Glucose Calcium Total Bilirubin AST ALT Alkaline Phosphatase Total Creatine Kinase 123 149 H CK-MB (Mass) 0.89 1.14 Troponin I Troponin I, Quant < 0.0120 < 0.0120 NT-Pro-B Natriuret Pep 600 Total Protein Albumin Globulin Albumin/Globulin Ratio Triglycerides 106 D Cholesterol 162 LDL Cholesterol Direct 105 HDL Cholesterol 38 Assessment & Plan - Assessment and Plan (Free Text) Assessment: 76 yo F with PMH of CAD s/p LAD stent, s/p liver and kidney transplant, anxiety , and HTN Plan: 1. Chest pain - Patient with history of CAD presents with stress induced chest pain, typical symptoms; NAM; No longer experiencing chest pain - EKG is unchanged from prior studies - Troponins negative x3 - BNP ordered pending - Echo done in 11/2016 showed normal heart function, no valvular abnormalities, no wall motion abnormalities - Will do nuclear stress test in AM to rule out ischemic disease 2. h/o CAD s/p LAD stent - Patient is reportedly not on DAPT at home, nor ACEi - Will review prior notes and consider starting DAPT and ACEi 3. HTN - BP moderately elevated on home meds; no change at this time, consider adding ACEi - Continue to monitor and titrate meds as needed 4. s/p Liver and Kidney transplant - On tacrolimus Patient seen, discussed, and reviewed with attending <Willard Mullen - Last Filed: 05/27/17 00:14> Results - Vital Signs Recent Vital Signs: Last Vital Signs Temp 97.6 F 04/29/17 07:30 Pulse 65 04/29/17 07:40 Resp 18 04/29/17 07:30 BP 159/81 H 04/29/17 07:30 Pulse Ox 96 04/29/17 07:30 - Labs Result Diagrams: 04/29/17 07:06 04/29/17 07:06 Attending/Attestation - Attestation I have personally seen and examined this patient.: Yes I have fully participated in the care of the patient.: Yes I have reviewed all pertinent clinical information: Yes
--- NOTE | 2017-04-28 22:17 | CON ---
CARDIOLOGY CONSULTATION DATE: 04/28/2017ON FOR CONSULTATION: Chest pain. HISTORY OF PRESENT ILLNESS: The patient is a 76-year-old female who has a history of liver and kidney transplant in the related to parasitic infestation in her home country in [place]. The patient has been doing well since then. She did undergo stenting to the LAD many years ago at [facility]. The patient has a history of chest pain usually related to an emotional upset, usually with her family members and the patient has a similar scenario. The patient stated that she lives with her older brother, which she has not seen since the patient lost her mother few years ago despite the fact that her father lives near her in [place] and when she found how much he lost weight, the patient started to experience chest pain after she panicked. The patient is unable to describe her chest discomfort and the patient did report dizziness, but no fainting or palpitation. The patient is currently chest pain free. MEDICATIONS: Ambien 5 mg daily at bedtime., clonazepam 0.5 mg twice a day, Lovenox 40 mg subcutaneously twice a day, Norvasc 10 mg once a day, Pepcid 20 mg once a day, Prograf 0.5 mg twice a day, labetalol 100 mg twice a day. PAST MEDICAL HISTORY: 1. 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 2. Hypertension. 3. Coronary artery disease, status post coronary stenting to LAD many years ago. 4. Anxiety disorder. REVIEW OF SYSTEMS: No nausea or vomiting, no palpitation, no syncope, no headache, no fever or chills. PHYSICAL EXAMINATION GENERAL: The patient is an elderly female who does not appear to be in acute distress. VITAL SIGNS: Blood pressure 154/77, heart rate 72, temperature 97.8, respirations 20. HEENT: Normocephalic. NECK: No JVD. HEART: S1 and S2 regular. CHEST: Clear. ABDOMEN: Soft. EXTREMITIES: No edema. No calf tenderness. LABORATORY DATA: Three sets of troponins are negative. SMA-7: Sodium 135, potassium 3.9, chloride 100, CO2 of 21, glucose 114, BUN 19, creatinine 1.0. Lipid profile is within normal limit. D-dimer is elevated to 319. Hemoglobin, hematocrit, white count and platelet count are within normal limit. EKG revealed normal sinus rhythm. CT angiogram of the chest revealed no pulmonary embolism, trace bibasilar atelectasis. The lungs are otherwise clear. ASSESSMENT: 1. Atypical chest pain, myocardial infarctions ruled out. 2. Coronary artery disease with history of left anterior descending stenting many years ago. 3. Status post liver and kidney transplant in the . 4. Anxiety disorder. CONDITIONS: Continue current at 100 mg twice a day, Norvasc 10 mg once a day, subcutaneous Lovenox at 40 mg once a day, Ambien 5 mg at bedtime, Klonopin 0.5 mg twice a day. The patient can be discharged on her current medications, which will include in addition to above medications, aspirin 81 mg daily to be scheduled for an outpatient treadmill stress test. Walter Cook MD
--- NOTE | 2017-04-28 22:57 | CP.PCM.HP ---
History of Present Illness - History of Present Illness History of Present Illness: CC: Chest pain History Of Present Illness 76 y/o elderly female with PMH significant for HTN, Hyperlipidemia, s/ P presents to emergency department with complaint of lower substernal chest pain which lasted for 5 minutes associated with diaphoresis, dizziness and then it came back , left sided sub sternal , she called 911 and came to ER, pt states that chest pain might be triggered by emotions as she saw her brother, who she has not seen for the past 5 years, earlier tonight. Patient described pain as pressure, localized to substernal area. She reports past history of cardiac heart problems. Otherwise, denies fever, chills, nausea, vomiting, SOB, palpitations, headache, dizziness, or other associated symptoms. Pt denies any cough, dyspepsia, nausea, vomittting, diarhea, polyuria, polydipsia, poly phagia , there is no sneezing, itching, any abdominal pain. Pt daughter calls me and explained me that she is gettong extremeley forgetful and at times she gets so wrong and talks things that she cant understand, also her primary doctor want work up done for dementia ,but she didnot do any MRI due to claustrophobia.No h/ o joint pain, hip pain. Present on Admission - Present on Admission Any Indicators Present on Admission: Yes Review of Systems - Review of Systems Systems not reviewed;Unavailable: Acuity of Condition - Constitutional Constitutional: Fatigue, Lethargy, Malaise - EENT Eyes: absent: As Per HPI, Blind Spots, Blurred Vision, Change in Vision, Decreased Night Vision, Diplopia, Discharge, Dry Eye, Exophthalmos, Floaters, Irritation, Itchy Eyes, Loss of Peripheral Vision, Pain, Photophobia, Requires Corrective Lenses, Sees Flashes, Spots in Vision, Tunnel Vision, Other Visual Disturbances, Loss of Vision, Other Nose/Mouth/Throat: absent: As Per HPI, Epistaxis, Nasal Congestion, Nasal Discharge, Nasal Obstruction, Nasal Trauma, Nose Pain, Post Nasal Drip, Sinus Pain, Sinus Pressure, Bleeding Gums, Change in Voice, Dental Pain, Dry Mouth, Dysphagia, Halitosis, Hoarsness, Lip Swelling, Mouth Lesions, Mouth Pain, Odynophagia, Sore Throat, Throat Swelling, Tongue Swelling, Facial Pain, Neck Pain, Neck Mass, Other - Breasts Breasts: absent: As Per HPI, Change in Shape, Mass, Pain, Nipple Discharge, Nipple Inversion, Skin Changes, Swelling, Other - Cardiovascular Cardiovascular: Chest Pain, Diaphoresis, Dyspnea - Respiratory Respiratory: absent: As Per HPI, Cough, Dyspnea, Hemoptysis, Dyspnea on Exertion , Wheezing, Snoring, Stridor, Pain on Inspiration, Chest Congestion, Excessive Mucous Production, Change in Mucous Color, Pain with Coughing, Other - Gastrointestinal Gastrointestinal: absent: As Per HPI, Abdominal Pain, Belching, Bloating, Change in Bowel Habits, Change in Stool Character, Coffee Ground Emesis, Constipation, Cramping, Diarrhea, Dyspepsia, Dysphagia, Early Satiety, Excessive Flatus, Fecal Incontinence, Heartburn, Hematemesis, Hematochezia, Loose Stools, Melena, Nausea, Odynophagia, Temesmus, Vomiting, Other - Genitourinary Genitourinary: absent: As Per HPI, Change in Urinary Stream, Difficulty Urinating, Dysuria, Flank Pain, Hematuria, Pyuria, Nocturia, Urinary Incontinence, Urinary Frequency, Urinary Hesitance, Urinary Urgency, Voiding Freq/Small Amts, Freq UTI, Hx Renal/Bladder Calculi, Hx /Renal Surgery, Bladder Distension, Other - Musculoskeletal Musculoskeletal: absent: As Per HPI, Abnormal Gait, Arthralgias, Atrophy, Back Pain, Deformity, Joint Swelling, Limited Range of Motion, Loss of Height, Muscle Cramps, Muscle Weakness, Myalgias, Neck Pain, Numbness, Radiating Pain into Limb, Stiffness, Tingling, Other - Integumentary Integumentary: absent: As Per HPI, Acne, Alopecia, Bleeding Lesions, Change in Hair, Change in Nails, Change in Pigmentation, Changing Lesions, Dry Skin, Erythema, Furuncle, Hirsutism, Lesions, New Lesions, Non-Healing Lesions, Photosensitivity, Pruritus, Rash, Skin Pain, Skin Ulcer, Sores, Striae, Swelling , Unusual Bruising, Wounds, Jaundice, Other - Psychiatric Psychiatric: Behavioral Changes, Confusion, Memory Loss Additional comments: delusions, delerium Past Patient History - Infectious Disease Hx of Infectious Diseases: None - Tetanus Immunizations Tetanus Immunization: Unknown - Past Medical History & Family History Past Medical History?: Yes - Past Social History Smoking Status: Never Smoked - CARDIAC Hx Angina: Yes Hx Hypertension: Yes Other/Comment: 2 Stents - PULMONARY Hx Respiratory Disorders: No Hx Tuberculosis: No - NEUROLOGICAL Hx Neurological Disorder: No Hx Seizures: No - HEENT Hx HEENT Problems: No Other/Comment: Eliseo eye implants - RENAL Hx Chronic Kidney Disease: Yes Other/Comment: Kidney Failure-transplant - ENDOCRINE/METABOLIC Hx Endocrine Disorders: No - HEMATOLOGICAL/ONCOLOGICAL Hx Blood Disorders: Yes Hx Anemia: Yes Hx Blood Transfusions: Yes (25 years ago) Hx Human Immunodeficiency Virus (HIV): No - INTEGUMENTARY Hx Dermatological Problems: No - MUSCULOSKELETAL/RHEUMATOLOGICAL Hx Musculoskeletal Disorders: No Hx Falls: No - GASTROINTESTINAL Hx Gastrointestinal Disorders: No Other/Comment: LIVER TRANSPLANT - GENITOURINARY/GYNECOLOGICAL Hx Genitourinary Disorders: No Hx Sexually Transmitted Disorders: No - PSYCHIATRIC Hx Psychophysiologic Disorder: Yes Hx Anxiety: Yes Hx Substance Use: No - SURGICAL HISTORY Hx Surgeries: Yes Hx Coronary Stent: Yes (x1) Hx Kidney Transplant: Yes (L kidney) Hx Liver Transplant: Yes - ANESTHESIA Hx Anesthesia: Yes Hx Anesthesia Reactions: No Hx Malignant Hyperthermia: No Has any member of the family had a problem w/ anesthesia?: No Meds Allergies/Adverse Reactions: Allergies Allergy/AdvReac Type Severity Reaction Status Date / Time iodine Allergy Verified 04/27/17 21:19 Penicillins Allergy Verified 04/27/17 21:19 Sulfa (Sulfonamide Allergy Verified 04/27/17 21:19 Antibiotics) prednisone AdvReac Severe Verified 04/27/17 21:19 seafood Allergy Uncoded 12/07/16 03:17 Physical Exam - Constitutional Appears: No Acute Distress Additional comments: Elderly female in NAD - Eye Exam Eye Exam: EOMI, Normal appearance, PERRL Pupil Exam: NORMAL ACCOMODATION, PERRL - ENT Exam ENT Exam: Mucous Membranes Moist, Normal Exam - Neck Exam Neck exam: Positive for: Normal Inspection - Respiratory Exam Respiratory Exam: Clear to Auscultation Bilateral, NORMAL BREATHING PATTERN - Cardiovascular Exam Cardiovascular Exam: REGULAR RHYTHM - GI/Abdominal Exam GI & Abdominal Exam: Normal Bowel Sounds, Soft. absent: Tenderness - Rectal Exam Rectal Exam: Deferred - Back Exam Back exam: NORMAL INSPECTION - Neurological Exam Neurological exam: Alert, CN II-XII Intact, Normal Gait, Oriented x3, Reflexes Normal - Psychiatric Exam Psychiatric exam: Normal Affect, Normal Mood - Skin Skin Exam: Dry, Intact, Normal Color, Warm Results - Vital Signs Recent Vital Signs: Last Vital Signs Temp 97.8 F 04/28/17 15:10 Pulse 72 04/28/17 15:10 Resp 20 04/28/17 15:10 BP 154/77 H 04/28/17 15:10 Pulse Ox 97 04/28/17 15:10 - Labs Result Diagrams: 04/27/17 21:34 04/27/17 21:34 Labs: Laboratory Results - last 24 hr 04/27/17 04/28/17 04/28/17 21:34 07:55 11:39 D-Dimer, Quantitative 319 H Total Creatine Kinase 123 149 H CK-MB (Mass) 0.89 1.14 Troponin I, Quant < 0.0120 < 0.0120 NT-Pro-B Natriuret Pep Triglycerides 106 D Cholesterol 162 LDL Cholesterol Direct 105 HDL Cholesterol 38 04/28/17 17:12 D-Dimer, Quantitative Total Creatine Kinase CK-MB (Mass) Troponin I, Quant NT-Pro-B Natriuret Pep 600 Triglycerides Cholesterol LDL Cholesterol Direct HDL Cholesterol Assessment & Plan (1) CAD (coronary artery disease) Assessment and Plan: rule out ACS in pt history of CAD Status: Acute (2) Dementia Assessment and Plan: Rule out alzehmiers Status: Acute (3) Chest pain Assessment and Plan: cardiac work up rule out MN seen and examined detailed orders written Status: Acute
--- NOTE | 2017-04-29 06:42 | CP.PCM.PN ---
Subjective - Date & Time of Evaluation Date of Evaluation: 04/29/17 Objective - Vital Signs/Intake and Output Vital Signs (last 24 hours): Temp Pulse Resp BP Pulse Ox 97.9 F 60 20 147/75 97 04/28/17 23:30 04/29/17 04:02 04/28/17 23:30 04/28/17 23:30 04/28/17 23:30 - Medications Medications: Current Medications Amlodipine Besylate (Norvasc) 10 mg PO DAILY [facility] Last Admin: 04/28/17 10:38 Dose: 10 mg Clonazepam (Klonopin) 0.5 mg PO BID [facility] Last Admin: 04/28/17 18:11 Dose: 0.5 mg Enoxaparin Sodium (Lovenox) 40 mg SC DAILY [facility] Last Admin: 04/28/17 10:38 Dose: 40 mg Famotidine (Pepcid) 20 mg PO DAILY [facility] Last Admin: 04/28/17 18:15 Dose: 20 mg Labetalol HCl (Trandate) 100 mg PO BID [facility] Last Admin: 04/28/17 18:12 Dose: 100 mg Pneumococcal Polyvalent Vaccine (Pneumovax 23 Vaccine) 0.5 ml IM .ONCE ONE Stop: 05/01/17 14:01 Tacrolimus (Prograf Cap) 0.5 mg PO BID [facility] Last Admin: 04/28/17 18:12 Dose: 0.5 mg Zolpidem Tartrate (Ambien) 5 mg PO HS [facility] Last Admin: 04/28/17 22:11 Dose: 5 mg - Labs Labs: 04/27/17 21:34 04/27/17 21:34 Assessment and Plan (1) CAD (coronary artery disease) Status: Acute (2) Dementia Status: Acute (3) Chest pain Status: Acute
[2017-04-29 07:26] LABS: BASO % 0.7 % (0.0-2.0); EOS # 0.1 K/uL (0.0-0.7); EOS % 2.6 % (0.0-4.0); HEMATOCRIT 35.1 % (34.0-47.0); LYMPH # 1.6 K/uL (1.0-4.3); LYMPH % 30.7 % (20.0-40.0); MEAN CELL VOLUME 83.3 fL (81.0-99.0); MEAN CORPUSCULAR HEMOGLOBIN 28.6 pg (27.0-31.0); MEAN CORPUSCULAR HGB CONC 34.3 g/dL (33.0-37.0); MEAN PLATELET VOLUME 8.1 fL (7.2-11.7); MONO # 0.6 K/uL (0.0-0.8); MONO % 12.5 % (0.0-10.0); NRBC % 0.1 % (0.0-2.0); RED CELL DISTRIBUTION WIDTH 14.9 % (11.5-14.5); WHITE BLOOD COUNT 5.1 K/uL (4.8-10.8)
[2017-04-29] MEDS ORDERED: Aminophylline 25 mg/ml Inj ONE (07:31)
[2017-04-29 07:59] LABS: CHLORIDE 101 mmol/L (98-107); SODIUM 137 mmol/L (132-148)
[2017-04-29 08:00] LABS: POTASSIUM 4.1 mmol/L (3.6-5.2)
[2017-04-29 08:02] LABS: ALB/GLOB RATIO 0.8 (1.0-2.1); ALKALINE PHOSPHATASE 100 U/L (38-126); ALT/SGPT 32 U/L (9-52); AST/SGOT 36 U/L (14-36); BILIRUBIN,TOTAL 0.7 mg/dL (0.2-1.3); BLOOD UREA NITROGEN 14 mg/dL (7-17); CARBON DIOXIDE 26 mmol/L (22-30); GFR AFRICAN-AMERICAN > 60; GLUCOSE,RANDOM 95 mg/dL (65-105); TOTAL PROTEIN 7.7 g/dL (6.3-8.3)
[2017-04-29 08:03] LABS: CALCIUM 9.4 mg/dl (8.6-10.4)
[2017-04-29 08:12] VITALS: BP 159/81; RESP 18; TEMP 97.6; O2SAT 96
[2017-04-29] MEDS: Enoxaparin 40 mg Syringe SC SCH (09:20)
[2017-04-29 12:13] VITALS: PULSE 65
--- NOTE | 2017-04-29 12:37 | CP.PCM.PN ---
<FALLON MCKINNEY - Last Filed: 04/29/17 12:34> Subjective - Date & Time of Evaluation Date of Evaluation: 04/29/17 Time of Evaluation: 07:30 - Subjective Subjective: Fallon Mckinney DO PGY1 - Cardiology Progress Note for Dr. Mullen Patient seen and examined at bedside. No events overnight. Patient was scheduled for nuclear stress test this morning, but she now refuses all stress tests, for fear of any reactions she may have to the injections. Patient may tolerate an exercise stress test, but is unwilling to undergo the nuclear imaging afterwards. Yesterday, we spoke to Dr. Cook, as patient reports that she sees him outside the hospital, and he asked us to continue seeing her. Risks and benefits of invasive vs noninvasive testing were discussed at length with the patient, and she again adamently refused. She currently denies any CP, SOB, palpitations, leg pain or swelling. Objective - Vital Signs/Intake and Output Vital Signs (last 24 hours): Temp Pulse Resp BP Pulse Ox 97.6 F 65 18 159/81 H 96 04/29/17 07:30 04/29/17 07:40 04/29/17 07:30 04/29/17 07:30 04/29/17 07:30 Intake and Output: 04/29/17 04/29/17 06:59 18:59 Intake Total 120 Balance 120 - Medications Medications: Current Medications Amlodipine Besylate (Norvasc) 10 mg PO DAILY [facility] Last Admin: 04/29/17 09:20 Dose: 10 mg Clonazepam (Klonopin) 0.5 mg PO BID [facility] Last Admin: 04/29/17 09:20 Dose: 0.5 mg Enoxaparin Sodium (Lovenox) 40 mg SC DAILY [facility] Last Admin: 04/29/17 09:20 Dose: 40 mg Famotidine (Pepcid) 20 mg PO DAILY [facility] Last Admin: 04/29/17 09:20 Dose: 20 mg Labetalol HCl (Trandate) 100 mg PO BID [facility] Last Admin: 04/29/17 09:20 Dose: 100 mg Pneumococcal Polyvalent Vaccine (Pneumovax 23 Vaccine) 0.5 ml IM .ONCE ONE Stop: 05/01/17 14:01 Tacrolimus (Prograf Cap) 0.5 mg PO BID [facility] Last Admin: 04/29/17 09:20 Dose: 0.5 mg Tramadol HCl (Ultram) 50 mg PO BID PRN PRN Reason: Pain, moderate (4-7) Zolpidem Tartrate (Ambien) 5 mg PO HS [facility] Last Admin: 04/28/17 22:11 Dose: 5 mg - Labs Labs: 04/29/17 07:06 04/29/17 07:06 - Constitutional Appears: Non-toxic, No Acute Distress, Agitated - Head Exam Head Exam: ATRAUMATIC, NORMOCEPHALIC - Eye Exam Eye Exam: EOMI, Normal appearance - ENT Exam ENT Exam: Mucous Membranes Moist - Neck Exam Neck Exam: Normal Inspection - Respiratory Exam Respiratory Exam: Clear to Ausculation Bilateral. absent: Rales, Rhonchi, Wheezes - Cardiovascular Exam Cardiovascular Exam: RRR, +S1, +S2 - GI/Abdominal Exam GI & Abdominal Exam: Soft. absent: Tenderness - Extremities Exam Extremities Exam: absent: Calf Tenderness, Pedal Edema - Neurological Exam Neurological Exam: Alert, Awake, Oriented x3 - Psychiatric Exam Psychiatric exam: Agitated, Normal Affect - Skin Skin Exam: Dry, Intact Assessment and Plan - Assessment and Plan (Free Text) Assessment: 76 yo F with PMH of CAD s/p LAD stent, s/p liver and kidney transplant, anxiety , and HTN Plan: 1. Chest pain - Patient with history of CAD presents with stress induced chest pain, typical symptoms; NAM; No longer experiencing chest pain - EKG is unchanged from prior studies - Troponins negative x3 - BNP 600 - Echo done in 11/2016 showed normal heart function, no valvular abnormalities, no wall motion abnormalities - Patient requires invasive or noninvasive testing, but currently refuses, even after discussion of risks of forgoing test. Recommend outpatient follow up with Dr. Cook and outpatient exercise stress testing Will sign off care at this time, as patient is stable, no longer exhibiting signs/symptoms of ischemic heart disease, as initially suspected, and is refusing all further pertinent cardiac workup Patient seen, discussed, and reviewed with attending <Willard Mullen - Last Filed: 05/27/17 00:14> Objective - Vital Signs/Intake and Output Vital Signs (last 24 hours): Temp Pulse Resp BP Pulse Ox 97.6 F 65 18 159/81 H 96 04/29/17 07:30 04/29/17 07:40 04/29/17 07:30 04/29/17 07:30 04/29/17 07:30 - Labs Labs: 04/29/17 07:06 04/29/17 07:06 Attending/Attestation - Attestation I have personally seen and examined this patient.: Yes I have fully participated in the care of the patient.: Yes I have reviewed all pertinent clinical information, including history, physical exam and plan: Yes
--- NOTE | 2017-04-29 14:38 | CP.PCM.CON ---
History of Present Illness - History of Present Illness History of Present Illness: Nephrology Consultation: Assessment: Stable Chest pain CAD s/p stent, hypertension and ESRD/ESLD s/p liver and kidney transplant 25 years ago Plan renal transplant: no active issues. continue with her home dose of prograf. Hypertension control with meds as ordered. can check orthostatics Dose meds/antibiotics for normal GFR. Avoid fleets enema/magnesium based laxatives. Avoid nephrotoxins/NSAIDs (unless needed emergently) Glycemic control Further work up/management as per primary team Thanks for allowing me to participate in care of your patient. Please call if any Qs. f/up with Dr Ruggiero after d/c Dr Edi Chaudhary Office: [phone] Chief Complaint; chest pain HPI: Pt is a 76 y/o F with hx of CAD s/p stent, hypertension and ESRD/ESLD s/p liver and kidney transplant 25 years ago came here with chest pain, so far cardiac work up neg. renal consult for transplant management Now she denies chest pain, palpitation, shortness of breath, leg swelling Denies blood or bubbles in urine Denies OTC/herbal meds or NSAIDs No recent iodinated contrast exposure. No obvious episodes of low BP. 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 No chills. No Recent Weight Changes Eyes: denies change in vision, denies watery eyes, denies double vision Ears/Nose/Mouth/Throat: Denies Abnormal Taste. No Bad breath no Bad Taste. Cardiovascular: No chest pain now There is no shortness of breath. No palpitations. had chest pain earlier Pulmonary: No shortness of breath no cough. Gastrointestinal: no abdominal pain no nausea. No vomiting. Denies change in bowel habits. Denies Bleeding Genitourinary: No Change in force of strain when urinating. c/o increase in urinary frequency. No pain while urinating. Denies blood in urine. Neurological: Denies headaches. No dizziness. Denies loss of balance. Denies weakness, denies tingling/numbness Dermatological: No Rash or Bruising or ulcers. Psychiatric: Denies Anxiety. No depression. Denies hallucinations. Rheumatological: No joint pain. Denies Joint swelling Endocrine: Denies tiredness/Fatigue denies Heat/Cold Intolerance now All other negative Physical Examination: General Appearance: Comfortable, in no acute respiratory distress, co-operative . Vitals reviewed and noted as below Head; Atraumatic, normocephalic ENT: no ulcers no thrush. Tongue is midline. Oropharynx: no rash or ulcers. EYES: Pupils are equal, round and reactive to light accommodation. Eye muscles and extraocular movement intact. Sclera is anicteric. Neck; supple no lymphadenopathy, no thyromegaly or bruit Lungs: Normal respiratory rate/effort. Breath sounds bilateral equal and clear Heart: Normal rate. s1s2 normal. No rub or gallop. Extremities: no edema. No varicose veins Neurological: Patient is alert, awake and oriented to person, place and time. No focal deficit. Strength bilateral appropriate and equal Skin: Warm and dry. Normal turgor. No rash. Palpitation: Normal elasticity for age Abdomen: Abdomen is soft. Bowel sounds +. There is no abdominal tenderness, no guarding/rigidity no organomegaly Psych: normal insight and normal affect/mood MSK: no joint tenderness or swelling. Digits and nails normal, no deformity : kidney or bladder not palpable Labs/imaging/EKG reviewed. Past medical history, past surgical history, family history, social history, allergy reviewed and noted as below Family hx: no hx of CKD. Rest non-contributory Past Patient History - Infectious Disease Hx of Infectious Diseases: None - Tetanus Immunizations Tetanus Immunization: Unknown - Past Medical History & Family History Past Medical History?: Yes - Past Social History Smoking Status: Never Smoked - CARDIAC Hx Angina: Yes Hx Hypertension: Yes Other/Comment: 2 Stents - PULMONARY Hx Respiratory Disorders: No Hx Tuberculosis: No - NEUROLOGICAL Hx Neurological Disorder: No Hx Seizures: No - HEENT Hx HEENT Problems: No Other/Comment: Eliseo eye implants - RENAL Hx Chronic Kidney Disease: Yes Other/Comment: Kidney Failure-transplant - ENDOCRINE/METABOLIC Hx Endocrine Disorders: No - HEMATOLOGICAL/ONCOLOGICAL Hx Blood Disorders: Yes Hx Anemia: Yes Hx Blood Transfusions: Yes (25 years ago) Hx Human Immunodeficiency Virus (HIV): No - INTEGUMENTARY Hx Dermatological Problems: No - MUSCULOSKELETAL/RHEUMATOLOGICAL Hx Musculoskeletal Disorders: No Hx Falls: No - GASTROINTESTINAL Hx Gastrointestinal Disorders: No Other/Comment: LIVER TRANSPLANT - GENITOURINARY/GYNECOLOGICAL Hx Genitourinary Disorders: No Hx Sexually Transmitted Disorders: No - PSYCHIATRIC Hx Psychophysiologic Disorder: Yes Hx Anxiety: Yes Hx Substance Use: No - SURGICAL HISTORY Hx Surgeries: Yes Hx Coronary Stent: Yes (x1) Hx Kidney Transplant: Yes (L kidney) Hx Liver Transplant: Yes - ANESTHESIA Hx Anesthesia: Yes Hx Anesthesia Reactions: No Hx Malignant Hyperthermia: No Has any member of the family had a problem w/ anesthesia?: No Meds Allergies/Adverse Reactions: Allergies Allergy/AdvReac Type Severity Reaction Status Date / Time iodine Allergy Verified 04/27/17 21:19 Penicillins Allergy Verified 04/27/17 21:19 Sulfa (Sulfonamide Allergy Verified 04/27/17 21:19 Antibiotics) prednisone AdvReac Severe Verified 04/27/17 21:19 seafood Allergy Uncoded 12/07/16 03:17 - Medications Medications: Current Medications Amlodipine Besylate (Norvasc) 10 mg PO DAILY [facility] Last Admin: 04/29/17 09:20 Dose: 10 mg Clonazepam (Klonopin) 0.5 mg PO BID [facility] Last Admin: 04/29/17 09:20 Dose: 0.5 mg Enoxaparin Sodium (Lovenox) 40 mg SC DAILY [facility] Last Admin: 04/29/17 09:20 Dose: 40 mg Famotidine (Pepcid) 20 mg PO DAILY [facility] Last Admin: 04/29/17 09:20 Dose: 20 mg Labetalol HCl (Trandate) 100 mg PO BID [facility] Last Admin: 04/29/17 09:20 Dose: 100 mg Pneumococcal Polyvalent Vaccine (Pneumovax 23 Vaccine) 0.5 ml IM .ONCE ONE Stop: 05/01/17 14:01 Tacrolimus (Prograf Cap) 0.5 mg PO BID [facility] Last Admin: 04/29/17 09:20 Dose: 0.5 mg Tramadol HCl (Ultram) 50 mg PO BID PRN PRN Reason: Pain, moderate (4-7) Zolpidem Tartrate (Ambien) 5 mg PO HS [facility] Last Admin: 04/28/17 22:11 Dose: 5 mg Results - Vital Signs Recent Vital Signs: Last Vital Signs Temp 97.6 F 04/29/17 07:30 Pulse 65 04/29/17 07:40 Resp 18 04/29/17 07:30 BP 159/81 H 04/29/17 07:30 Pulse Ox 96 04/29/17 07:30 - Labs Result Diagrams: 04/29/17 07:06 04/29/17 07:06 Labs: Laboratory Results - last 24 hr 04/28/17 04/29/17 04/29/17 17:12 07:06 07:06 WBC 5.1 RBC 4.21 Hgb 12.0 Hct 35.1 MCV 83.3 MCH 28.6 MCHC 34.3 RDW 14.9 H Plt Count 181 MPV 8.1 Neut % (Auto) 53.5 Lymph % (Auto) 30.7 [place] % (Auto) 12.5 H Eos % (Auto) 2.6 Baso % (Auto) 0.7 Neut # 2.7 Lymph # 1.6 [place] # 0.6 Eos # 0.1 Baso # 0.0 Sodium 137 Potassium 4.1 Chloride 101 Carbon Dioxide 26 Anion Gap 14 BUN 14 Creatinine 0.9 Est GFR ( Amer) > 60 Est GFR (Non-Af Amer) > 60 Random Glucose 95 Calcium 9.4 Total Bilirubin 0.7 AST 36 ALT 32 Alkaline Phosphatase 100 NT-Pro-B Natriuret Pep 600 Total Protein 7.7 Albumin 3.5 Globulin 4.2 H Albumin/Globulin Ratio 0.8 L
--- NOTE | 2017-04-29 15:01 | PN ---
HISTORY OF PRESENT ILLNESS: The case was discussed yesterday with Dr. Yoni Hernandez, who recommended that the patient should go for MRI of the brain. However, the patient refused to go, and she requested only open MRI. She still complains of mild dizziness. Denies any chest pain. PHYSICAL EXAMINATION: VITAL SIGNS: Blood pressure 159/81, heart rate 63, temperature is 97.6 and respiration 18. HEENT: Normocephalic. CHEST: Clear. HEART: S1 and S2 regular. EXTREMITIES: No edema. LABORATORY DATA: Hemoglobin and hematocrit 12 and 35.1; white count and platelet count are 5.1 and 181,000. Today's SMA-7 is entirely within normal limit. ASSESSMENT: 1. Atypical chest pain, myocardial infraction was ruled out. 2. Dizziness. 3. History of coronary artery disease status post coronary stenting to the left anterior descending many years ago. 4. Anxiety disorder. 5. Status post combined liver and renal transplant. RECOMMENDATIONS: Continue Ambien 5 mg once a day, Lovenox 40 mg once a day, Trandate 100 mg twice a day. Case was discussed with Dr. Hernandez and outpatient treadmill stress test will be considered. Walter Cook MD
--- NOTE | 2017-04-29 15:38 | CARD ---
APPROVED REPORT EKG Measurement Heart [id number] <Conclusion> Sinus bradycardia ST & T wave abnormality, consider anterior ischemia Abnormal ECG
--- NOTE | 2017-04-29 15:41 | CARD ---
APPROVED REPORT EKG Measurement Heart [id number] <Conclusion> Normal sinus rhythm Normal ECG
--- NOTE | 2017-04-29 15:41 | CARD ---
APPROVED REPORT EKG Measurement Heart [id number] <Conclusion> Normal sinus rhythm Nonspecific T wave abnormality Abnormal ECG
--- NOTE | 2017-04-30 00:36 | CP.PCM.DIS ---
Provider - Provider Date of Admission: 04/28/17 02:15 Attending physician: Yoni Hernandez MD Time Spent in preparation of Discharge (in minutes): 45 Diagnosis - Discharge Diagnosis (1) CAD (coronary artery disease) Status: Acute (2) Dementia Status: Acute (3) Chest pain Status: Acute Hospital Course - Lab Results Lab Results: Most Recent Lab Values WBC 5.1 K/uL (4.8-10.8) 04/29/17 07:06 RBC 4.21 Mil/uL (3.80-5.20) 04/29/17 07:06 Hgb 12.0 g/dL (11.0-16.0) 04/29/17 07:06 Hct 35.1 % (34.0-47.0) 04/29/17 07:06 MCV 83.3 fL (81.0-99.0) 04/29/17 07:06 MCH 28.6 pg (27.0-31.0) 04/29/17 07:06 MCHC 34.3 g/dL (33.0-37.0) 04/29/17 07:06 RDW 14.9 % (11.5-14.5) H 04/29/17 07:06 Plt Count 181 K/uL (130-400) 04/29/17 07:06 MPV 8.1 fL (7.2-11.7) 04/29/17 07:06 Neut % (Auto) 53.5 % (50.0-75.0) 04/29/17 07:06 Lymph % (Auto) 30.7 % (20.0-40.0) 04/29/17 07:06 [place] % (Auto) 12.5 % (0.0-10.0) H 04/29/17 07:06 Eos % (Auto) 2.6 % (0.0-4.0) 04/29/17 07:06 Baso % (Auto) 0.7 % (0.0-2.0) 04/29/17 07:06 Neut # 2.7 K/uL (1.8-7.0) 04/29/17 07:06 Lymph # 1.6 K/uL (1.0-4.3) 04/29/17 07:06 [place] # 0.6 K/uL (0.0-0.8) 04/29/17 07:06 Eos # 0.1 K/uL (0.0-0.7) 04/29/17 07:06 Baso # 0.0 K/uL (0.0-0.2) 04/29/17 07:06 D-Dimer, Quantitative 319 ng/mlDDU (0-243) H 04/27/17 21:34 Sodium 137 mmol/L (132-148) 04/29/17 07:06 Potassium 4.1 mmol/L (3.6-5.2) 04/29/17 07:06 Chloride 101 mmol/L (98-107) 04/29/17 07:06 Carbon Dioxide 26 mmol/L (22-30) 04/29/17 07:06 Anion Gap 14 (10-20) 04/29/17 07:06 BUN 14 mg/dL (7-17) 04/29/17 07:06 Creatinine 0.9 mg/dL (0.7-1.2) 04/29/17 07:06 Est GFR ( Amer) > 60 04/29/17 07:06 Est GFR (Non-Af Amer) > 60 04/29/17 07:06 Random Glucose 95 mg/dL (65-105) 04/29/17 07:06 Calcium 9.4 mg/dl (8.6-10.4) 04/29/17 07:06 Total Bilirubin 0.7 mg/dL (0.2-1.3) 04/29/17 07:06 AST 36 U/L (14-36) 04/29/17 07:06 ALT 32 U/L (9-52) 04/29/17 07:06 Alkaline Phosphatase 100 U/L (38-126) 04/29/17 07:06 Total Creatine Kinase 149 U/L (30-135) H 04/28/17 11:39 CK-MB (Mass) 1.14 ng/mL (0.0-3.38) 04/28/17 11:39 Troponin I < 0.0120 ng/mL (0.00-0.120) 04/27/17 21:34 Troponin I, Quant < 0.0120 ng/mL (0.00-0.120) 04/28/17 11:39 NT-Pro-B Natriuret Pep 600 pg/mL (0-900) 04/28/17 17:12 Total Protein 7.7 g/dL (6.3-8.3) 04/29/17 07:06 Albumin 3.5 g/dL (3.5-5.0) 04/29/17 07:06 Globulin 4.2 gm/dL (2.2-3.9) H 04/29/17 07:06 Albumin/Globulin Ratio 0.8 (1.0-2.1) L 04/29/17 07:06 Triglycerides 106 mg/dL (0-149) D 04/28/17 07:55 Cholesterol 162 mg/dL (0-199) 04/28/17 07:55 LDL Cholesterol Direct 105 mg/dL (0-129) 04/28/17 07:55 HDL Cholesterol 38 mg/dL (30-70) 04/28/17 07:55 - Hospital Course Hospital Course: Pt seen and evalauted, is willing to go home, denies further cardiac work up. refused neurology eval, MRI of brain, she refsued stress out Assessment: Stable Chest pain OK was ruled out. CAD s/p stent, hypertension and ESRD/ESLD s/p liver and kidney transplant 25 years ago Discharge Exam - Head Exam Head Exam: ATRAUMATIC, NORMOCEPHALIC - Eye Exam Eye Exam: EOMI, Normal appearance, PERRL Pupil Exam: NORMAL ACCOMODATION, PERRL - ENT Exam ENT Exam: Mucous Membranes Moist - Respiratory Exam Respiratory Exam: Clear to PA & Lateral, NORMAL BREATHING PATTERN - Cardiovascular Exam Cardiovascular Exam: REGULAR RHYTHM, +S1, +S2 - GI/Abdominal Exam GI & Abdominal Exam: Normal Bowel Sounds - Neurological Exam Neurological exam: Alert, CN II-XII Intact, Normal Gait, Oriented x3, Reflexes Normal - Psychiatric Exam Psychiatric exam: Anxious - Skin Skin Exam: Dry, Intact, Normal Color, Warm Discharge Plan - Follow Up Plan Condition: STABLE Disposition: HOME/ ROUTINE Instructions: Chest Pain (DC), Heart Healthy Diet (DC) Additional Instructions: Follow up with Dr. Hernandez office in 1 week Follow up with Dr. Cook office in 1-2 weeks - call for appointment Resume all home medications Referrals: Walter Cook MD [Staff Provider] - Yoni Hernandez MD [Staff Provider] -
[2017-05-01] MEDS ORDERED: Pneumococcal 23-Valent Vaccine IM ONE (14:00)
[2017-05-01] MEDS ORDERED: Influenza Vaccine 60 mcg/0.5 mL SYR (4YR UP) IM ONE (14:00)
== END 2017-04-29 15:46 | disposition home or self-care (01) ==
LOC: C.ER 21:07 → C.6T 04-28 02:15
PROVIDERS: ADMIT Internal Medicine; ATTEND Internal Medicine
DX: I25.10 Atherosclerotic heart disease of native coronary artery without angina pectoris (principal); E78.5 Hyperlipidemia, unspecified; F03.90 Unspecified dementia, unspecified severity, without behavioral disturbance, psychotic disturbance, mood disturbance, and anxiety; F41.9 Anxiety disorder, unspecified; I12.0 Hypertensive chronic kidney disease with stage 5 chronic kidney disease or end stage renal disease; M10.9 Gout, unspecified; N18.6 End stage renal disease; Z94.0 Kidney transplant status; Z94.4 Liver transplant status; Z95.5 Presence of coronary angioplasty implant and graft
CPT/HCPCS: 36415; 71020; 71275; 80053; 80061; 83880; 84484; 85025; 85378; 93005; 96374; 99285; G0378; J1650; J1885; J7040; J7507; Q9967

== ENCOUNTER 2017-08-21 08:24 | Observation (INO) | payer MEDICARE ==
[2017-08-21 08:37] VITALS: BMI 27.3
--- NOTE | 2017-08-21 09:26 | C.PDOC ---
History Of Present Illness 76 year old female, with PMHx of HTN, presents to ED for evaluation of constant chest pain associated with shortness of breath since last night. Notes taking Aspirin last night. Otherwise, denies headache, fever, chills cough, nausea, vomiting, diarrhea, diaphoresis, jaw pain, back pain, lower extremity pain/ swelling, or recent travels. Time Seen by Provider: 08/21/17 08:33 Chief Complaint (Nursing): Chest Pain History Per: Patient History/Exam Limitations: no limitations Onset/Duration Of Symptoms: Days Current Symptoms Are (Timing): Still Present Quality: "Pain" Associated Symptoms: Dyspnea. denies: Nausea, Diaphoresis, Syncope Modifying Factors: None Exacerbating Factors: None Alleviating Factors: None Recent travel outside of the [place]: No Additional History Per: Patient Past Medical History Reviewed: Historical Data, Nursing Documentation, Vital Signs Vital Signs: Last Vital Signs Temp 98.5 F 08/21/17 12:14 Pulse 78 08/21/17 12:14 Resp 20 08/21/17 12:14 BP 159/81 H 08/21/17 12:14 Pulse Ox 96 08/21/17 12:14 - Medical History PMH: Anemia, Anxiety, Arthritis (gouty arthritis), CAD, HTN, Osteoporosis, Chronic Kidney Disease, Rheumatoid Arthritis Denies: HIV, Seizures, Sexually Transmitted Disease Surgical History: Coronary Stent (x1) Family History: States: Unknown Family Hx - Social History Hx Tobacco Use: No Hx Alcohol Use: No Hx Substance Use: No - Immunization History Hx Tetanus Toxoid Vaccination: No Hx Influenza Vaccination: No Hx Pneumococcal Vaccination: No Review Of Systems Except As Marked, All Systems Reviewed And Found Negative. Constitutional: Negative for: Fever, Chills Cardiovascular: Positive for: Chest Pain. Negative for: Palpitations, Light Headedness Respiratory: Positive for: Shortness of Breath. Negative for: Cough, Sputum, Wheezing Gastrointestinal: Negative for: Nausea, Vomiting, Abdominal Pain Neurological: Negative for: Headache, Dizziness Physical Exam - Physical Exam Appears: Non-toxic, No Acute Distress Skin: Normal Color, Warm, Dry Head: Atraumatic, Normacephalic Eye(s): bilateral: Normal Inspection Oral Mucosa: Moist Neck: Supple Chest: Symmetrical, No Tenderness Cardiovascular: Rhythm Regular, No Murmur Respiratory: Normal Breath Sounds, No Rales, No Rhonchi, No Wheezing Gastrointestinal/Abdominal: Soft, No Tenderness Extremity: Normal ROM, No Pedal Edema, No Deformity Neurological/Psych: Oriented x3, Normal Speech ED Course And Treatment - Laboratory Results Result Diagrams: 08/21/17 10:53 08/21/17 10:53 ECG: Interpreted By Me, Viewed By Me ECG Rhythm: Sinus Rhythm ECG Interpretation: No Acute Changes Interpretation Of ECG: Normal intervals, left axis deviation, non-specific T wave changes. Rate From EC (bpm) O2 Sat by Pulse Oximetry: 75 Medical Decision Making Medical Decision Making: Plan: Blood work EKG CXR Aspirin Reassess Disposition Discussed With : Bahman Watkins Doctor Will See Patient In The: Hospital Counseled Patient/Family Regarding: Studies Performed, Diagnosis - Disposition Disposition: HOSPITALIZED Disposition Time: 13:34 Condition: FAIR Forms: [facility] ([place]) - Clinical Impression Clinical Impression: Chest discomfort - Scribe Statement The provider has reviewed the documentation as recorded by the Scribe Lion Torres All medical record entries made by the Scribe were at my direction and personally dictated by me. I have reviewed the chart and agree that the record accurately reflects my personal performance of the history, physical exam, medical decision making, and the department course for this patient. I have also personally directed, reviewed, and agree with the discharge instructions and disposition.
--- NOTE | 2017-08-21 10:57 | RAD ---
Chest x-ray single frontal view History: Chest pain. Comparison: 04/27/2017 Findings: Mild venous congestion. Right paratracheal prominence may represent prominent vasculature. Tortuous ectatic aorta. Mild cardiomegaly. Degenerative changes in the spine and shoulders. Impression: Mild venous congestion. Right paratracheal prominence may represent prominent vasculature. Tortuous ectatic aorta. Mild cardiomegaly.
[2017-08-21 10:59] LABS: BASO % 0.6 % (0.0-2.0); EOS % 0.7 % (0.0-4.0); HEMOGLOBIN 12.8 g/dL (11.0-16.0); LYMPH % 14.4 % (20.0-40.0); MEAN CELL VOLUME 83.1 fL (81.0-99.0); MEAN CORPUSCULAR HEMOGLOBIN 28.9 pg (27.0-31.0); MEAN CORPUSCULAR HGB CONC 34.7 g/dL (33.0-37.0); MEAN PLATELET VOLUME 7.9 fL (7.2-11.7); MONO # 0.4 K/uL (0.0-0.8); MONO % 6.4 % (0.0-10.0); NEUT # 5.2 K/uL (1.8-7.0); NEUT % 77.9 % (50.0-75.0); NRBC % 0.1 % (0.0-2.0); RBC 4.45 Mil/uL (3.80-5.20); RED CELL DISTRIBUTION WIDTH 14.8 % (11.5-14.5); WHITE BLOOD COUNT 6.7 K/uL (4.8-10.8)
[2017-08-21 11:11] LABS: ALB/GLOB RATIO 0.8 (1.0-2.1); ALBUMIN 3.6 g/dL (3.5-5.0); ALT/SGPT 25 U/L (9-52); AST/SGOT 23 U/L (14-36); BLOOD UREA NITROGEN 15 mg/dL (7-17); CALCIUM 9.3 mg/dl (8.6-10.4); GFR AFRICAN-AMERICAN > 60; GFR NON-AFRICAN AMERICAN > 60; LIPASE 93 U/L (23-300)
[2017-08-21 11:22] LABS: B-TYPE NATRIURETIC PEPTIDE 390 pg/mL (0-900)
[2017-08-21 11:32] LABS: PROTHROMBIN TIME 11.9 SECONDS (9.7-12.2)
--- NOTE | 2017-08-21 16:09 | CON ---
DATE: CARDIOLOGY CONSULTATION REASON FOR CONSULTATION: Chest pain. 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 The patient has a history of coronary artery disease, underwent LAD stenting many years ago. She has a history of depression and anxiety. The patient stated that her birthday is approaching and she is going to be 77 years old and she is a little excised or depressed about it. She did present because of chest pain that she describes as someone hit her in the chest. She denies any shortness of breath. SOCIAL HISTORY: The patient is a nonsmoker. She did drink recently and that resulted in elevated liver enzymes and was advised not to drink anymore by her liver specialist. MEDICATIONS: The list of home medications are not listed yet, but I recalled that the patient was on anti-rejection medications for her liver and kidney transplant beside aspirin daily. REVIEW OF SYSTEMS: No nausea or vomiting. No fever or chills. PHYSICAL EXAMINATION: GENERAL: The patient is an elderly female, who does not appear to be in any acute distress. VITAL SIGNS: Blood pressure 159/81, heart rate 78, temperature 98.5, respirations 20. HEENT: Normocephalic. CHEST: Clear. HEART: S1 and S2 regular. ABDOMEN: Soft. EXTREMITIES: No edema. No calf tenderness. LABORATORY DATA: SMA-7: Sodium 136, potassium 4.3, chloride 100, CO2 of 27, glucose 115, BUN 15, creatinine 0.8. One set of troponin is negative. PT, PTT and INR are within normal limit. CBC: WBC 6.7, hemoglobin 12.8, hematocrit 37, platelet count 194,000. Chest x-ray reveals sinus rhythm. No evidence of acute ischemic changes. Chest x-ray report, mild venous congestion, right paratracheal prominence, many represent prominent vasculature, very tortuous ectatic aorta and mild cardiomegaly. ASSESSMENT: 1. Chest pain. Rule out myocardial infarction. 2. Hypertension. 3. Status post liver and kidney transplant. 4. History of coronary artery disease, status post left ventricular stenting many years ago. RECOMMENDATIONS: Resume aspirin at 81 mg once a day. The patient did receive 325 mg of aspirin in the emergency room. Start Coreg 3.125 mg twice a day. Monitor daily EKGs and serial cardiac enzymes. Obtain serum D-dimer. Walter Cook MD
[2017-08-21 16:47] VITALS: BP 168/81; PULSE 80; RESP 18; TEMP 98.1; O2SAT 98
[2017-08-21] MEDS ORDERED: Enoxaparin 40 mg Syringe SC SCH (17:00)
[2017-08-21] MEDS ORDERED: TRAMADOL HCL PO SCH (22:00)
[2017-08-21] MEDS ORDERED: ACETAMINOPHEN PO SCH (22:00)
[2017-08-21] MEDS ORDERED: Home Med 1 UNIT (Zolpidem [Ambien] 10 MG) PO SCH (22:00)
--- NOTE | 2017-08-21 23:58 | CP.PCM.HP ---
Past Patient History - Infectious Disease Hx of Infectious Diseases: None - Tetanus Immunizations Tetanus Immunization: Unknown - Past Medical History & Family History Past Medical History?: Yes - Past Social History Smoking Status: Never Smoked - CARDIAC Hx Hypertension: Yes - PULMONARY Hx Tuberculosis: No - NEUROLOGICAL Hx Seizures: No - HEENT Hx HEENT Problems: Yes Other/Comment: Eliseo eye implants - RENAL Hx Chronic Kidney Disease: Yes - ENDOCRINE/METABOLIC Hx Endocrine Disorders: No - HEMATOLOGICAL/ONCOLOGICAL Hx Anemia: Yes Hx Human Immunodeficiency Virus (HIV): No - INTEGUMENTARY Hx Dermatological Problems: No - MUSCULOSKELETAL/RHEUMATOLOGICAL Hx Arthritis: Yes (gouty arthritis) Hx Osteoporosis: Yes Hx Rheumatoid Arthritis: Yes - GASTROINTESTINAL Hx Gastrointestinal Disorders: Yes Other/Comment: LIVER TRANSPLANT - GENITOURINARY/GYNECOLOGICAL Hx Sexually Transmitted Disorders: No - PSYCHIATRIC Hx Anxiety: Yes Hx Substance Use: No - SURGICAL HISTORY Hx Coronary Stent: Yes (x1) - ANESTHESIA Hx Anesthesia: Yes Hx Anesthesia Reactions: No Hx Malignant Hyperthermia: No Meds Allergies/Adverse Reactions: Allergies Allergy/AdvReac Type Severity Reaction Status Date / Time iodine Allergy Verified 08/21/17 08:36 Penicillins Allergy Verified 08/21/17 08:36 Sulfa (Sulfonamide Allergy Verified 08/21/17 08:36 Antibiotics) prednisone AdvReac Severe Verified 08/21/17 08:36 CT scan IV dye Allergy Uncoded 08/21/17 08:36 seafood Allergy Uncoded 12/07/16 03:17 Results - Vital Signs Recent Vital Signs: Last Vital Signs Temp 98.1 F 08/21/17 16:46 Pulse 80 08/21/17 16:46 Resp 18 08/21/17 16:46 BP 168/81 H 08/21/17 16:46 Pulse Ox 98 08/21/17 16:46 - Labs Result Diagrams: 08/21/17 10:53 08/21/17 10:53 Labs: Laboratory Results - last 24 hr 08/21/17 08/21/17 08/21/17 10:53 10:53 10:53 WBC 6.7 RBC 4.45 Hgb 12.8 Hct 37.0 MCV 83.1 MCH 28.9 MCHC 34.7 RDW 14.8 H Plt Count 194 MPV 7.9 Neut % (Auto) 77.9 H Lymph % (Auto) 14.4 L [place] % (Auto) 6.4 Eos % (Auto) 0.7 Baso % (Auto) 0.6 Neut # 5.2 Lymph # 1.0 [place] # 0.4 Eos # 0.0 Baso # 0.0 PT 11.9 INR 1.0 APTT 28 D-Dimer, Quantitative Sodium 133 Potassium 4.3 Chloride 100 Carbon Dioxide 27 Anion Gap 11 BUN 15 Creatinine 0.8 Est GFR ( Amer) > 60 Est GFR (Non-Af Amer) > 60 Random Glucose 115 H Calcium 9.3 Total Bilirubin 0.5 AST 23 ALT 25 Alkaline Phosphatase 92 Troponin I < 0.0120 NT-Pro-B Natriuret Pep 390 Total Protein 7.7 Albumin 3.6 Globulin 4.2 H Albumin/Globulin Ratio 0.8 L Lipase 93 08/21/17 14:32 WBC RBC Hgb Hct MCV MCH MCHC RDW Plt Count MPV Neut % (Auto) Lymph % (Auto) [place] % (Auto) Eos % (Auto) Baso % (Auto) Neut # Lymph # [place] # Eos # Baso # PT INR APTT D-Dimer, Quantitative 362 H Sodium Potassium Chloride Carbon Dioxide Anion Gap BUN Creatinine Est GFR ( Amer) Est GFR (Non-Af Amer) Random Glucose Calcium Total Bilirubin AST ALT Alkaline Phosphatase Troponin I NT-Pro-B Natriuret Pep Total Protein Albumin Globulin Albumin/Globulin Ratio Lipase
--- NOTE | 2017-08-21 23:59 | CP.PCM.DIS ---
Provider - Provider Date of Admission: 08/21/17 13:33 Attending physician: Bahman Watkins MD Time Spent in preparation of Discharge (in minutes): 10 Hospital Course - Lab Results Lab Results: Most Recent Lab Values WBC 6.7 K/uL (4.8-10.8) 08/21/17 10:53 RBC 4.45 Mil/uL (3.80-5.20) 08/21/17 10:53 Hgb 12.8 g/dL (11.0-16.0) 08/21/17 10:53 Hct 37.0 % (34.0-47.0) 08/21/17 10:53 MCV 83.1 fL (81.0-99.0) 08/21/17 10:53 MCH 28.9 pg (27.0-31.0) 08/21/17 10:53 MCHC 34.7 g/dL (33.0-37.0) 08/21/17 10:53 RDW 14.8 % (11.5-14.5) H 08/21/17 10:53 Plt Count 194 K/uL (130-400) 08/21/17 10:53 MPV 7.9 fL (7.2-11.7) 08/21/17 10:53 Neut % (Auto) 77.9 % (50.0-75.0) H 08/21/17 10:53 Lymph % (Auto) 14.4 % (20.0-40.0) L 08/21/17 10:53 [place] % (Auto) 6.4 % (0.0-10.0) 08/21/17 10:53 Eos % (Auto) 0.7 % (0.0-4.0) 08/21/17 10:53 Baso % (Auto) 0.6 % (0.0-2.0) 08/21/17 10:53 Neut # 5.2 K/uL (1.8-7.0) 08/21/17 10:53 Lymph # 1.0 K/uL (1.0-4.3) 08/21/17 10:53 [place] # 0.4 K/uL (0.0-0.8) 08/21/17 10:53 Eos # 0.0 K/uL (0.0-0.7) 08/21/17 10:53 Baso # 0.0 K/uL (0.0-0.2) 08/21/17 10:53 PT 11.9 SECONDS (9.7-12.2) 08/21/17 10:53 INR 1.0 08/21/17 10:53 APTT 28 SECONDS (21-34) 08/21/17 10:53 D-Dimer, Quantitative 362 ng/mlDDU (0-243) H 08/21/17 14:32 Sodium 133 mmol/L (132-148) 08/21/17 10:53 Potassium 4.3 mmol/L (3.6-5.2) 08/21/17 10:53 Chloride 100 mmol/L (98-107) 08/21/17 10:53 Carbon Dioxide 27 mmol/L (22-30) 08/21/17 10:53 Anion Gap 11 (10-20) 08/21/17 10:53 BUN 15 mg/dL (7-17) 08/21/17 10:53 Creatinine 0.8 mg/dL (0.7-1.2) 08/21/17 10:53 Est GFR ( Amer) > 60 08/21/17 10:53 Est GFR (Non-Af Amer) > 60 08/21/17 10:53 Random Glucose 115 mg/dL (65-105) H 08/21/17 10:53 Calcium 9.3 mg/dl (8.6-10.4) 08/21/17 10:53 Total Bilirubin 0.5 mg/dL (0.2-1.3) 08/21/17 10:53 AST 23 U/L (14-36) 08/21/17 10:53 ALT 25 U/L (9-52) 08/21/17 10:53 Alkaline Phosphatase 92 U/L (38-126) 08/21/17 10:53 Troponin I < 0.0120 ng/mL (0.00-0.120) 08/21/17 10:53 NT-Pro-B Natriuret Pep 390 pg/mL (0-900) 08/21/17 10:53 Total Protein 7.7 g/dL (6.3-8.3) 08/21/17 10:53 Albumin 3.6 g/dL (3.5-5.0) 08/21/17 10:53 Globulin 4.2 gm/dL (2.2-3.9) H 08/21/17 10:53 Albumin/Globulin Ratio 0.8 (1.0-2.1) L 08/21/17 10:53 Lipase 93 U/L (23-300) 08/21/17 10:53 Discharge Plan - Follow Up Plan Condition: FAIR Disposition: AGAINST MEDICAL ADVICE
--- NOTE | 2017-08-23 22:55 | CARD ---
APPROVED REPORT EKG Measurement Heart [id number] 164P17 [id number] <Conclusion> Normal sinus rhythm Left axis deviation Possible Anterior infarct, age undetermined Abnormal ECG
== END 2017-08-21 19:25 | disposition left against medical advice (07) ==
LOC: C.ER 08:24 → C.9E 13:33
PROVIDERS: ADMIT Internal Medicine; ATTEND Internal Medicine
DX: R07.9 Chest pain, unspecified (principal); I12.9 Hypertensive chronic kidney disease with stage 1 through stage 4 chronic kidney disease, or unspecified chronic kidney disease; I25.10 Atherosclerotic heart disease of native coronary artery without angina pectoris; M81.0 Age-related osteoporosis without current pathological fracture; N18.9 Chronic kidney disease, unspecified; Z94.0 Kidney transplant status; Z94.4 Liver transplant status; Z95.5 Presence of coronary angioplasty implant and graft; M06.9 Rheumatoid arthritis, unspecified; Z79.899 Other long term (current) drug therapy
CPT/HCPCS: 71045; 80053; 83690; 83880; 84484; 85025; 85378; 85610; 85730; 93005; 99285; G0378

== ENCOUNTER 2017-11-24 18:53 | Emergency (ER) | payer MEDICARE ==
[2017-11-24 18:53] VITALS: BMI 27.3
[2017-11-24 19:02] VITALS: TEMP 99
[2017-11-24] MEDS: Oxycodone/Acetaminophen 5/325 mg Tab PO STA (19:55)
[2017-11-24 20:03] LABS: BASO % 0.7 % (0.0-2.0); EOS # 0.1 K/uL (0.0-0.7); EOS % 0.9 % (0.0-4.0); LYMPH # 1.3 K/uL (1.0-4.3); LYMPH % 20.1 % (20.0-40.0); MEAN CELL VOLUME 81.2 fL (81.0-99.0); MEAN CORPUSCULAR HEMOGLOBIN 27.5 pg (27.0-31.0); MEAN CORPUSCULAR HGB CONC 33.9 g/dL (33.0-37.0); MEAN PLATELET VOLUME 8.1 fL (7.2-11.7); MONO # 0.8 K/uL (0.0-0.8); MONO % 12.3 % (0.0-10.0); NEUT # 4.4 K/uL (1.8-7.0); NRBC % 0.1 % (0.0-2.0); RBC 4.37 Mil/uL (3.80-5.20); RED CELL DISTRIBUTION WIDTH 14.1 % (11.5-14.5); WHITE BLOOD COUNT 6.7 K/uL (4.8-10.8)
[2017-11-24] MEDS: Labetalol 25mg/5ml Syringe IVP STA (20:10)
[2017-11-24 20:12] LABS: INR 1.1; PROTHROMBIN TIME 12.2 SECONDS (9.7-12.2)
[2017-11-24] MEDS ORDERED: Oxycodone/Acetaminophen 5/325 mg Tab ONE (20:12)
--- NOTE | 2017-11-24 20:17 | C.PDOC ---
History Of Present Illness 77yo female with history of hypertension, osteoporosis, CKD, rheumatoid arthritis, CAD with 2 cardiac stents, kidney and liver transplants, presents to ED with complaints of severe left sided neck pain, radiating to left arm for the past 2 days. Patient states she "went crazy" yesterday and called the ambulance; patient was seen and evaluated at [facility], given a "big white pill", discharged home and had no pain relief. She states she ran out of her hypertension med 2 weeks ago and has been non-compliant since then. She has no other medical complaints. Time Seen by Provider: 11/24/17 19:00 Chief Complaint (Nursing): High Blood Pressure History Per: Patient History/Exam Limitations: no limitations Onset/Duration Of Symptoms: Days Current Symptoms Are (Timing): Still Present Past Medical History Reviewed: Historical Data, Nursing Documentation, Vital Signs Vital Signs: Last Vital Signs Temp 99 F 11/24/17 18:58 Pulse 78 11/24/17 20:41 Resp 20 11/24/17 20:41 BP 166/89 H 11/24/17 20:41 Pulse Ox 99 11/24/17 21:17 - Medical History PMH: Anemia, Anxiety, Arthritis (gouty arthritis), CAD, HTN, Osteoporosis, Chronic Kidney Disease, Rheumatoid Arthritis Denies: HIV, Seizures, Sexually Transmitted Disease Surgical History: Coronary Stent (x1) Family History: States: No Known Family Hx, Unknown Family Hx - Social History Hx Tobacco Use: No Hx Alcohol Use: No Hx Substance Use: No - Immunization History Hx Tetanus Toxoid Vaccination: No Hx Influenza Vaccination: No Hx Pneumococcal Vaccination: No Review Of Systems Except As Marked, All Systems Reviewed And Found Negative. Constitutional: Negative for: Fever, Chills Cardiovascular: Negative for: Chest Pain Respiratory: Negative for: Shortness of Breath Gastrointestinal: Negative for: Nausea, Vomiting, Diarrhea Musculoskeletal: Positive for: Neck Pain (left sided), Arm Pain (left) Physical Exam - Physical Exam Appears: Non-toxic, No Acute Distress Skin: Warm, Dry Head: Atraumatic, Normacephalic Eye(s): bilateral: Normal Inspection, PERRL Oral Mucosa: Moist Neck: Normal ROM, Paracervical Tenderness (left posterior paracervical tenderness), Supple Chest: Symmetrical Cardiovascular: Rhythm Regular Respiratory: Normal Breath Sounds Back: Other (left trapezius tenderness) Extremity: Normal ROM, Tenderness (left rotator cuff, proximal shoudler, tenderness) Neurological/Psych: Oriented x3 ED Course And Treatment - Laboratory Results Result Diagrams: 11/24/17 19:55 11/24/17 19:55 ECG: Interpreted By Me, Viewed By Me ECG Rhythm: Sinus Rhythm Interpretation Of ECG: NC: 166. QRS: 100. QT: 386. QTC: 453. No ischemic changes Rate From EC O2 Sat by Pulse Oximetry: 99 (RA) Pulse Ox Interpretation: Normal Medical Decision Making Medical Decision Making: Impression: a. Musculoskeletal pain b. Malignant hypertnesion Plan: -- Valium, toradol, percocet -- Labetalol 20mg IVP -- Troponin, BMP, continuous monitoring and evaluation advisor, CXR Time: 2100 Upon reevaluation, patient feels much better. Blood pressure improved with 160's systolic. Labs reviewed and within normal limits, troponin and BMP unremarkable. CXR shows Mild venous congestion. Right paratracheal prominence may represent prominent vasculature. Tortuous ectatic aorta. Mild cardiomegaly. Unchanged from 08/21/17 Time: 2220 Patient reports feeling much better and is stable for discharge home. She will follow up at [facility] next week with Dr. Steven Hunter. Disposition Doctor Will See Patient In The: Office Counseled Patient/Family Regarding: Diagnosis, Need For Followup, Rx Given - Disposition Referrals: Wilmer Eric MD [Staff Provider] - Disposition: HOME/ ROUTINE Disposition Time: 21:17 Condition: GOOD Additional Instructions: return if symptoms worsen or return . Prescriptions: Diazepam [Valium] 2 mg PO DAILY 3 Days #3 tablet Naproxen [Naprosyn] 500 mg PO BID 5 Days #10 tablet Instructions: Muscle Spasms (DC) Forms: Gen Discharge Inst Armenian, General Discharge Instructions, [facility] (Mongolian) - Clinical Impression Clinical Impression: Muscle spasm of left shoulder, Renal transplant recipient, Hypertension, CAD ( coronary artery disease) - Scribe Statement The provider has reviewed the documentation as recorded by the Scribe (Mavis Don) Provider Attestation: All medical record entries made by the Scribe were at my direction and personally dictated by me. I have reviewed the chart and agree that the record accurately reflects my personal performance of the history, physical exam, medical decision making, and the department course for this patient. I have also personally directed, reviewed, and agree with the discharge instructions and disposition.
[2017-11-24 20:21] LABS: ALB/GLOB RATIO 0.8 (1.0-2.1); ALBUMIN 3.5 g/dL (3.5-5.0); ALT/SGPT 15 U/L (9-52); AST/SGOT 20 U/L (14-36); BLOOD UREA NITROGEN 15 mg/dL (7-17); CALCIUM 9.4 mg/dl (8.6-10.4); GFR AFRICAN-AMERICAN > 60; GFR NON-AFRICAN AMERICAN 54
[2017-11-24 20:32] LABS: B-TYPE NATRIURETIC PEPTIDE 563 pg/mL (0-900)
[2017-11-24 20:42] VITALS: RESP 20
[2017-11-24 22:38] VITALS: BP 156/62; PULSE 90; O2SAT 97
--- NOTE | 2017-11-25 08:29 | RAD ---
PROCEDURE: CHEST RADIOGRAPH, 1 VIEW HISTORY: chest pain COMPARISON: 08/21/2017 FINDINGS: LUNGS: No infiltrate. Linear scar/atelectasis at right base, unchanged. PLEURA: No pneumothorax or pleural fluid seen. CARDIOVASCULAR: Normal. OSSEOUS STRUCTURES: No significant abnormalities. VISUALIZED UPPER ABDOMEN: Normal. OTHER FINDINGS: None. IMPRESSION: No active disease.
--- NOTE | 2017-11-25 11:48 | CARD ---
APPROVED REPORT EKG Measurement Heart [id number] ND 166P7 [id number] <Conclusion> Normal sinus rhythm Normal ECG
== END 2017-11-24 22:35 | disposition home or self-care (01) ==
LOC: C.ER 18:53
DX: M62.838 Other muscle spasm (principal); I25.10 Atherosclerotic heart disease of native coronary artery without angina pectoris; I10 Essential (primary) hypertension; Z94.0 Kidney transplant status
CPT/HCPCS: 71045; 80053; 83880; 84484; 85025; 85610; 85730; 93005; 96374; 96375; 99285; J1885

== ENCOUNTER 2017-12-28 19:16 | Emergency (ER) | payer MEDICARE ==
[2017-12-28 19:17] VITALS: BMI 27.3
[2017-12-28 19:38] VITALS: TEMP 98.2
--- NOTE | 2017-12-28 19:47 | C.PDOC ---
History Of Present Illness 77 y/o female presents to ED with complaints of chest pain. Patient states she has been under a lot of stress after losing 400$ check and rent money. Patient denies fever, chills, sob, palpitations, nausea, vomiting or any other complaints at this time. Time Seen by Provider: 12/28/17 19:47 Chief Complaint (Nursing): Chest Pain History Per: Patient History/Exam Limitations: no limitations Onset/Duration Of Symptoms: Days Current Symptoms Are (Timing): Still Present Severity: Mild Pain Scale Rating Of: 2 Quality: "Pain" Associated Symptoms: denies: Nausea, Diaphoresis Exacerbating Factors: None Recent travel outside of the [place]: No Past Medical History Reviewed: Historical Data, Nursing Documentation, Vital Signs Vital Signs: Last Vital Signs Temp 98.2 F 12/28/17 19:33 Pulse 65 12/28/17 21:57 Resp 18 12/28/17 21:57 BP 165/79 H 12/28/17 21:57 Pulse Ox 99 12/28/17 21:57 - Medical History PMH: Anemia, Anxiety, Arthritis (gouty arthritis), CAD, HTN, Osteoporosis, Chronic Kidney Disease, Rheumatoid Arthritis Surgical History: Coronary Stent (x1) Family History: States: No Known Family Hx - Social History Hx Tobacco Use: No Hx Alcohol Use: No Hx Substance Use: No - Immunization History Hx Tetanus Toxoid Vaccination: No Hx Influenza Vaccination: No Hx Pneumococcal Vaccination: No Review Of Systems Constitutional: Negative for: Fever, Chills Cardiovascular: Positive for: Chest Pain. Negative for: Palpitations Respiratory: Negative for: Cough, Shortness of Breath Gastrointestinal: Negative for: Nausea, Vomiting Physical Exam - Physical Exam Appears: Non-toxic, No Acute Distress, Other (Speaking in full sentences) Skin: Warm, Dry, No Rash Head: Normacephalic Eye(s): bilateral: Normal Inspection Oral Mucosa: Moist Neck: Supple Chest: Symmetrical Cardiovascular: Rhythm Regular Respiratory: No Rales, No Rhonchi, No Wheezing Gastrointestinal/Abdominal: Soft, No Tenderness, Organomegaly (Hepatomegaly), Distention, No Guarding, No Rebound, Other (Surgical scar left pelvic area) Back: No CVA Tenderness, No Paraspinal Tenderness Neurological/Psych: Oriented x3 ED Course And Treatment - Laboratory Results Result Diagrams: 12/28/17 19:52 12/28/17 19:52 ECG: Interpreted By Me, Viewed By Me ECG Rhythm: Sinus Rhythm (67), Nonspecific Changes O2 Sat by Pulse Oximetry: 96 (RA) Pulse Ox Interpretation: Normal - Radiology CXR: Interpreted by Me, Viewed By Me CXR Interpretation: No: Infiltrates, Fracture, Pnemothorax Disposition Discussed With : Yoni Hernandez Comment: accepted the pt on his service and took over the care at10:50 PM Doctor Will See Patient In The: Hospital Counseled Patient/Family Regarding: Studies Performed, Diagnosis - Disposition Disposition: HOSPITALIZED Disposition Time: 19:47 Condition: FAIR Forms: [facility] (Sinhala) - Clinical Impression Clinical Impression: Chest pain - Scribe Statement The provider has reviewed the documentation as recorded by the Scribe Hitesh Corcoran All medical record entries made by the Scribe were at my direction and personally dictated by me. I have reviewed the chart and agree that the record accurately reflects my personal performance of the history, physical exam, medical decision making, and the department course for this patient. I have also personally directed, reviewed, and agree with the discharge instructions and disposition.
[2017-12-28] MEDS ORDERED: Aspirin 325 mg EC Tablets PO STA (19:49)
[2017-12-28 19:58] LABS: BASO % 0.8 % (0.0-2.0); EOS # 0.1 K/uL (0.0-0.7); EOS % 2.2 % (0.0-4.0); HEMOGLOBIN 11.9 g/dL (11.0-16.0); LYMPH % 33.5 % (20.0-40.0); MEAN CELL VOLUME 80.2 fL (81.0-99.0); MEAN CORPUSCULAR HEMOGLOBIN 27.3 pg (27.0-31.0); MEAN CORPUSCULAR HGB CONC 34.1 g/dL (33.0-37.0); MONO # 0.7 K/uL (0.0-0.8); MONO % 12.7 % (0.0-10.0); NEUT % 50.8 % (50.0-75.0); RBC 4.35 Mil/uL (3.80-5.20); RED CELL DISTRIBUTION WIDTH 14.4 % (11.5-14.5); WHITE BLOOD COUNT 5.8 K/uL (4.8-10.8)
[2017-12-28] MEDS ORDERED: Aspirin 325 mg EC Tablets PO ONE (20:01)
[2017-12-28 20:09] LABS: INR 1.1; PROTHROMBIN TIME 12.3 SECONDS (9.7-12.2)
[2017-12-28 20:10] LABS: ALB/GLOB RATIO 0.9 (1.0-2.1); ALBUMIN 3.4 g/dL (3.5-5.0); ALT/SGPT 35 U/L (9-52); AST/SGOT 66 U/L (14-36); BLOOD UREA NITROGEN 13 mg/dL (7-17); CALCIUM 9.1 mg/dl (8.6-10.4); GFR AFRICAN-AMERICAN 59; GFR NON-AFRICAN AMERICAN 48
[2017-12-28 20:21] LABS: B-TYPE NATRIURETIC PEPTIDE 380 pg/mL (0-900)
[2017-12-28 21:58] VITALS: BP 165/79; PULSE 65; RESP 18
[2017-12-28 22:01] LABS: SQUAMOUS EPITHIAL 1 /hpf (0-5); URINE BACTERIA OCC (<OCC); URINE BILIRUBIN NEGATIVE (NEGATIVE); URINE BLOOD NEGATIVE (NEGATIVE); URINE CLARITY Hazy (Clear); URINE COLOR Yellow (YELLOW); URINE GLUCOSE (UA) NORMAL (Normal); URINE LEUKOCYTE ESTERASE 1+ Leu/uL (Negative); URINE PROTEIN 2+ mg/dL (NEGATIVE)
[2017-12-28 22:58] VITALS: O2SAT 96
--- NOTE | 2017-12-29 08:36 | RAD ---
Chest x-ray single frontal view History: Chest pain. Comparison: 04/27/2017 Findings: Mild venous congestion. Biapical pleural thickening with upper lobe granulomatous changes. Right hilar prominence. Mild patchy increased markings at left lung base. Lobulated appearance at the level of the left lateral lower deidre thorax pleura, nonspecific. Tortuous aorta. Calcified aortic knob. Heart size within normal limits. Degenerative changes in the spine and shoulders. Impression: Mild venous congestion. Biapical pleural thickening with upper lobe granulomatous changes. Right hilar prominence. Mild patchy increased markings at left lung base. Lobulated appearance at the level of the left lateral lower deidre thorax pleura, nonspecific. Tortuous aorta. Calcified aortic knob.
--- NOTE | 2017-12-29 09:11 | CP.PCM.HP ---
History of Present Illness - History of Present Illness History of Present Illness: History Of Present Illness 77 y/o female presents to ED with complaints of chest pain. Patient states she has been under a lot of stress after losing 400$ check and rent money. Patient denies fever, chills, sob, palpitations, nausea, vomiting or any other complaints at this time Present on Admission - Present on Admission Any Indicators Present on Admission: No Past Patient History - Infectious Disease Hx of Infectious Diseases: None - Tetanus Immunizations Tetanus Immunization: Unknown - Past Medical History & Family History Past Medical History?: Yes - Past Social History Smoking Status: Never Smoked - CARDIAC Hx Hypertension: Yes - PULMONARY Hx Tuberculosis: No - NEUROLOGICAL Hx Seizures: No - HEENT Hx HEENT Problems: Yes Other/Comment: Eliseo eye implants - RENAL Hx Chronic Kidney Disease: Yes - ENDOCRINE/METABOLIC Hx Endocrine Disorders: No - HEMATOLOGICAL/ONCOLOGICAL Hx Anemia: Yes - INTEGUMENTARY Hx Dermatological Problems: No - MUSCULOSKELETAL/RHEUMATOLOGICAL Hx Arthritis: Yes (gouty arthritis) Hx Osteoporosis: Yes Hx Rheumatoid Arthritis: Yes - GASTROINTESTINAL Hx Gastrointestinal Disorders: Yes Other/Comment: LIVER TRANSPLANT,kidney transplant - GENITOURINARY/GYNECOLOGICAL Hx Sexually Transmitted Disorders: No - PSYCHIATRIC Hx Anxiety: Yes Hx Substance Use: No - SURGICAL HISTORY Hx Coronary Stent: Yes (x1) - ANESTHESIA Hx Anesthesia: Yes Hx Anesthesia Reactions: No Hx Malignant Hyperthermia: No Meds Allergies/Adverse Reactions: Allergies Allergy/AdvReac Type Severity Reaction Status Date / Time iodine Allergy Verified 12/28/17 19:39 Penicillins Allergy Verified 12/28/17 19:39 Sulfa (Sulfonamide Allergy Verified 12/28/17 19:39 Antibiotics) prednisone AdvReac Severe Verified 12/28/17 19:39 CT scan IV dye Allergy Uncoded 12/28/17 19:39 seafood Allergy Uncoded 12/28/17 19:39 Results - Vital Signs Recent Vital Signs: Last Vital Signs Temp 98.2 F 12/28/17 19:33 Pulse 65 12/28/17 21:57 Resp 18 12/28/17 21:57 BP 165/79 H 12/28/17 21:57 Pulse Ox 96 12/28/17 22:58 - Labs Result Diagrams: 12/28/17 19:52 12/28/17 19:52 Labs: Laboratory Results - last 24 hr 12/28/17 12/28/17 12/28/17 19:52 19:52 19:52 WBC 5.8 RBC 4.35 Hgb 11.9 Hct 34.9 MCV 80.2 L MCH 27.3 MCHC 34.1 RDW 14.4 Plt Count 193 MPV 8.0 Neut % (Auto) 50.8 Lymph % (Auto) 33.5 [place] % (Auto) 12.7 H Eos % (Auto) 2.2 Baso % (Auto) 0.8 Neut # (Auto) 3.0 Lymph # (Auto) 2.0 [place] # (Auto) 0.7 Eos # (Auto) 0.1 Baso # (Auto) 0.0 PT 12.3 H INR 1.1 APTT 30 Sodium 141 Potassium 4.2 Chloride 107 Carbon Dioxide 24 Anion Gap 15 BUN 13 Creatinine 1.1 Est GFR ( Amer) 59 Est GFR (Non-Af Amer) 48 Random Glucose 95 Calcium 9.1 Total Bilirubin 0.7 AST 66 H D ALT 35 Alkaline Phosphatase 125 Troponin I < 0.0120 NT-Pro-B Natriuret Pep 380 Total Protein 7.4 Albumin 3.4 L Globulin 4.0 H Albumin/Globulin Ratio 0.9 L Urine Color Urine Clarity Urine pH Ur Specific [place] Urine Protein Urine Glucose (UA) Urine Ketones Urine Blood Urine Nitrate Urine Bilirubin Urine Urobilinogen Ur Leukocyte Esterase Urine WBC (Auto) Urine RBC (Auto) Ur Squamous Epith Cells Ur Transition Epith Cell Urine Bacteria 12/28/17 21:53 WBC RBC Hgb Hct MCV MCH MCHC RDW Plt Count MPV Neut % (Auto) Lymph % (Auto) [place] % (Auto) Eos % (Auto) Baso % (Auto) Neut # (Auto) Lymph # (Auto) [place] # (Auto) Eos # (Auto) Baso # (Auto) PT INR APTT Sodium Potassium Chloride Carbon Dioxide Anion Gap BUN Creatinine Est GFR ( Amer) Est GFR (Non-Af Amer) Random Glucose Calcium Total Bilirubin AST ALT Alkaline Phosphatase Troponin I NT-Pro-B Natriuret Pep Total Protein Albumin Globulin Albumin/Globulin Ratio Urine Color Yellow Urine Clarity Hazy Urine pH 5.0 Ur Specific [place] 1.017 Urine Protein 2+ H Urine Glucose (UA) Normal Urine Ketones Negative Urine Blood Negative Urine Nitrate Negative Urine Bilirubin Negative Urine Urobilinogen 2.0 H Ur Leukocyte Esterase 1+ H Urine WBC (Auto) 10 H Urine RBC (Auto) 1 Ur Squamous Epith Cells 1 Ur Transition Epith Cell < 1 Urine Bacteria Occ H
[2017-12-29] MEDS ORDERED: ACETAMINOPHEN PO SCH ×2 (10:00)
[2017-12-29] MEDS ORDERED: Enoxaparin 40 mg Syringe SC SCH (10:00)
[2017-12-29] MEDS ORDERED: TRAMADOL HCL PO SCH ×2 (10:00)
--- NOTE | 2017-12-30 08:32 | CP.PCM.DIS ---
Provider - Provider Date of Admission: 12/28/17 22:24 Attending physician: Yoni Hernandez MD Time Spent in preparation of Discharge (in minutes): 45 Hospital Course - Lab Results Lab Results: Most Recent Lab Values WBC 5.8 K/uL (4.8-10.8) 12/28/17 19:52 RBC 4.35 Mil/uL (3.80-5.20) 12/28/17 19:52 Hgb 11.9 g/dL (11.0-16.0) 12/28/17 19:52 Hct 34.9 % (34.0-47.0) 12/28/17 19:52 MCV 80.2 fL (81.0-99.0) L 12/28/17 19:52 MCH 27.3 pg (27.0-31.0) 12/28/17 19:52 MCHC 34.1 g/dL (33.0-37.0) 12/28/17 19:52 RDW 14.4 % (11.5-14.5) 12/28/17 19:52 Plt Count 193 K/uL (130-400) 12/28/17 19:52 MPV 8.0 fL (7.2-11.7) 12/28/17 19:52 Neut % (Auto) 50.8 % (50.0-75.0) 12/28/17 19:52 Lymph % (Auto) 33.5 % (20.0-40.0) 12/28/17 19:52 [place] % (Auto) 12.7 % (0.0-10.0) H 12/28/17 19:52 Eos % (Auto) 2.2 % (0.0-4.0) 12/28/17 19:52 Baso % (Auto) 0.8 % (0.0-2.0) 12/28/17 19:52 Neut # (Auto) 3.0 K/uL (1.8-7.0) 12/28/17 19:52 Lymph # (Auto) 2.0 K/uL (1.0-4.3) 12/28/17 19:52 [place] # (Auto) 0.7 K/uL (0.0-0.8) 12/28/17 19:52 Eos # (Auto) 0.1 K/uL (0.0-0.7) 12/28/17 19:52 Baso # (Auto) 0.0 K/uL (0.0-0.2) 12/28/17 19:52 PT 12.3 SECONDS (9.7-12.2) H 12/28/17 19:52 INR 1.1 12/28/17 19:52 APTT 30 SECONDS (21-34) 12/28/17 19:52 Sodium 141 mmol/L (132-148) 12/28/17 19:52 Potassium 4.2 mmol/L (3.6-5.2) 12/28/17 19:52 Chloride 107 mmol/L (98-107) 12/28/17 19:52 Carbon Dioxide 24 mmol/L (22-30) 12/28/17 19:52 Anion Gap 15 (10-20) 12/28/17 19:52 BUN 13 mg/dL (7-17) 12/28/17 19:52 Creatinine 1.1 mg/dL (0.7-1.2) 12/28/17 19:52 Est GFR ( Amer) 59 12/28/17 19:52 Est GFR (Non-Af Amer) 48 12/28/17 19:52 Random Glucose 95 mg/dL (65-105) 12/28/17 19:52 Calcium 9.1 mg/dl (8.6-10.4) 12/28/17 19:52 Total Bilirubin 0.7 mg/dL (0.2-1.3) 12/28/17 19:52 AST 66 U/L (14-36) H D 12/28/17 19:52 ALT 35 U/L (9-52) 12/28/17 19:52 Alkaline Phosphatase 125 U/L (38-126) 12/28/17 19:52 Troponin I < 0.0120 ng/mL (0.00-0.120) 12/28/17 19:52 NT-Pro-B Natriuret Pep 380 pg/mL (0-900) 12/28/17 19:52 Total Protein 7.4 g/dL (6.3-8.3) 12/28/17 19:52 Albumin 3.4 g/dL (3.5-5.0) L 12/28/17 19:52 Globulin 4.0 gm/dL (2.2-3.9) H 12/28/17 19:52 Albumin/Globulin Ratio 0.9 (1.0-2.1) L 12/28/17 19:52 Urine Color Yellow (YELLOW) 12/28/17 21:53 Urine Clarity Hazy (Clear) 12/28/17 21:53 Urine pH 5.0 (5.0-8.0) 12/28/17 21:53 Ur Specific [place] 1.017 (1.003-1.030) 12/28/17 21:53 Urine Protein 2+ mg/dL (NEGATIVE) H 12/28/17 21:53 Urine Glucose (UA) Normal mg/dL (Normal) 12/28/17 21:53 Urine Ketones Negative mg/dL (NEGATIVE) 12/28/17 21:53 Urine Blood Negative (NEGATIVE) 12/28/17 21:53 Urine Nitrate Negative (NEGATIVE) 12/28/17 21:53 Urine Bilirubin Negative (NEGATIVE) 12/28/17 21:53 Urine Urobilinogen 2.0 mg/dL (0.2-1.0) H 12/28/17 21:53 Ur Leukocyte Esterase 1+ [place]/uL (Negative) H 12/28/17 21:53 Urine WBC (Auto) 10 /hpf (0-5) H 12/28/17 21:53 Urine RBC (Auto) 1 /hpf (0-3) 12/28/17 21:53 Ur Squamous Epith Cells 1 /hpf (0-5) 12/28/17 21:53 Ur Transition Epith Cell < 1 /hpf (0-3) 12/28/17 21:53 Urine Bacteria Occ (<OCC) H 12/28/17 21:53 Discharge Plan - Follow Up Plan Condition: FAIR Disposition: ELOPED FROM NURSING UNIT
--- NOTE | 2017-12-31 05:30 | CARD ---
APPROVED REPORT EKG Measurement Heart [id number] [place] 184P12 [id number] <Conclusion> Normal sinus rhythm Nonspecific ST abnormality Abnormal ECG
== END 2017-12-29 00:20 | disposition left against medical advice (07) ==
LOC: C.ER 19:16 → UNDOADMOB 22:24 → C.9E 22:24 → C.ER 12-29 00:20 → UNDODISOB 12-29 00:30
DX: R07.9 Chest pain, unspecified (principal); I10 Essential (primary) hypertension; I12.9 Hypertensive chronic kidney disease with stage 1 through stage 4 chronic kidney disease, or unspecified chronic kidney disease; N18.9 Chronic kidney disease, unspecified

== ENCOUNTER 2018-01-10 17:58 | Emergency (ER) | payer MEDICARE ==
[2018-01-10 17:58] VITALS: BMI 27.3
[2018-01-10 18:16] VITALS: RESP 18
[2018-01-10 18:40] LABS: BASO % 0.6 % (0.0-2.0); EOS # 0.1 K/uL (0.0-0.7); HEMOGLOBIN 12.6 g/dL (11.0-16.0); LYMPH # 1.8 K/uL (1.0-4.3); MEAN CELL VOLUME 79.7 fL (81.0-99.0); MEAN CORPUSCULAR HEMOGLOBIN 26.2 pg (27.0-31.0); MEAN CORPUSCULAR HGB CONC 32.9 g/dL (33.0-37.0); MEAN PLATELET VOLUME 7.5 fL (7.2-11.7); MONO # 0.8 K/uL (0.0-0.8); MONO % 12.1 % (0.0-10.0); NEUT # 4.2 K/uL (1.8-7.0); NEUT % 60.3 % (50.0-75.0); NRBC % 0.1 % (0.0-2.0); RBC 4.79 Mil/uL (3.80-5.20); RED CELL DISTRIBUTION WIDTH 14.5 % (11.5-14.5); WHITE BLOOD COUNT 6.9 K/uL (4.8-10.8)
[2018-01-10 19:00] LABS: ALB/GLOB RATIO 0.9 (1.0-2.1); ALT/SGPT 22 U/L (9-52); AST/SGOT 28 U/L (14-36); BLOOD UREA NITROGEN 15 mg/dL (7-17); CALCIUM 9.7 mg/dl (8.6-10.4); GFR AFRICAN-AMERICAN 48; GFR NON-AFRICAN AMERICAN 40
[2018-01-10 20:15] VITALS: BP 120/66; PULSE 80; TEMP 98; O2SAT 98
--- NOTE | 2018-01-10 20:50 | C.PDOC ---
History Of Present Illness Patient is a 77 y/o female who presents to the ED with a complaint of mild dizziness after [place] out [place] a shopping mall. Patient states she was overcome by the heat outside, stating the episode only lasted a few seconds and has since subsided. Denies any pain at any time, shortness of breath, chest pain, or any other physical complaints at this time. Chief Complaint (Nursing): Chest Pain History Per: Patient History/Exam Limitations: no limitations Onset/Duration Of Symptoms: Hrs, Sudden Onset Current Symptoms Are (Timing): Still Present Recent travel outside of the [place]: No Past Medical History Reviewed: Historical Data, Nursing Documentation, Vital Signs Vital Signs: Last Vital Signs Temp 98 F 01/10/18 20:14 Pulse 80 01/10/18 20:14 Resp 18 01/10/18 20:14 BP 120/66 01/10/18 20:14 Pulse Ox 98 01/10/18 20:54 - Medical History PMH: Anemia, Anxiety, Arthritis (gouty arthritis), CAD, HTN, Osteoporosis, Chronic Kidney Disease, Rheumatoid Arthritis Denies: HIV, Seizures, Sexually Transmitted Disease Surgical History: Coronary Stent (x2) Family History: States: No Known Family Hx - Social History Hx Tobacco Use: No Hx Alcohol Use: No Hx Substance Use: No - Immunization History Hx Tetanus Toxoid Vaccination: No Hx Influenza Vaccination: No Hx Pneumococcal Vaccination: No Review Of Systems Cardiovascular: Negative for: Chest Pain Respiratory: Negative for: Shortness of Breath Neurological: Positive for: Dizziness. Negative for: Weakness, Numbness Physical Exam - Physical Exam Appears: Well, Non-toxic, No Acute Distress Skin: Normal Color, Warm, Dry Head: Atraumatic, Normacephalic Eye(s): bilateral: PERRL, EOMI Oral Mucosa: Moist Cardiovascular: Rhythm Regular, No Murmur Respiratory: Normal Breath Sounds, No Rales, No Rhonchi, No Wheezing Gastrointestinal/Abdominal: Soft, No Tenderness, No Guarding, No Rebound Extremity: Normal ROM (x4) Neurological/Psych: Oriented x3, Normal Speech, Normal Cognition, Other (no focal deficits) Gait: Steady ED Course And Treatment - Laboratory Results Result Diagrams: 01/10/18 18:37 01/10/18 18:37 ECG: Interpreted By Me, Viewed By Me ECG Rhythm: Sinus Rhythm, R BBB (incomplete) Interpretation Of ECG: normal axis and normal intervals Rate From EC (bpm) O2 Sat by Pulse Oximetry: 98 (room air) Pulse Ox Interpretation: Normal Progress Note: EKG and CXR ordered. Disposition - Disposition Referrals: Wilmer Eric MD [Staff Provider] - Disposition: HOME/ ROUTINE Disposition Time: 19:30 Condition: IMPROVED Additional Instructions: LOUIE SIMON, thank you for letting us take care of you today. Your provider was Fahad Wang DO. The emergency medical care you received today was directed at your acute symptoms. If you were prescribed any medication, please fill it and take as directed. It may take several days for your symptoms to resolve. Return to the Emergency Department if your symptoms worsen, do not improve, or if you have any other problems. Please contact your doctor or call one of the physicians/clinics you have been referred to that are listed on the Patient Visit Information form that is included in your discharge packet. Bring any paperwork you were given at discharge with you along with any medications you are taking to your follow up visit. Our treatment cannot replace ongoing medical care by a primary care provider outside of the emergency department. Thank you for allowing the [facility] team to be part of your care today. Follow up with your primary care in 2-3 days for re-evaluation and further management. Instructions: Vertigo (a Type of Dizziness) (DC) Forms: [email or web address] ([place]) - Clinical Impression Clinical Impression: Dizziness - Scribe Statement The provider has reviewed the documentation as recorded by the Scribe Hanane Machado All medical record entries made by the Scribe were at my direction and personally dictated by me. I have reviewed the chart and agree that the record accurately reflects my personal performance of the history, physical exam, medical decision making, and the department course for this patient. I have also personally directed, reviewed, and agree with the discharge instructions and disposition.
--- NOTE | 2018-01-11 09:28 | RAD ---
PROCEDURE: CHEST RADIOGRAPH, 1 VIEW HISTORY: chest pain COMPARISON: Comparison chest dated 01/10/2018. FINDINGS: LUNGS: Mild bibasilar atelectasis. Right paratracheal density likely represents great vessel artifact. PLEURA: No pneumothorax or pleural fluid seen. CARDIOVASCULAR: Heart size within range of normal. OSSEOUS STRUCTURES: No significant abnormalities. VISUALIZED UPPER ABDOMEN: Normal. OTHER FINDINGS: None. IMPRESSION: Mild bibasilar atelectasis.
--- NOTE | 2018-01-13 05:37 | CARD ---
APPROVED REPORT EKG Measurement Heart [id number] <Conclusion> Normal sinus rhythm Incomplete right bundle branch block Borderline ECG
== END 2018-01-10 20:31 | disposition home or self-care (01) ==
LOC: C.ER 17:58
DX: R42 Dizziness and giddiness (principal)

== ENCOUNTER 2018-05-03 09:21 | Inpatient (IN) | payer MEDICARE ==
[2018-05-03 09:21] VITALS: BMI 27.3
[2018-05-03 10:13] LABS: BASO % 0.7 % (0.0-2.0); EOS # 0.1 K/uL (0.0-0.7); EOS % 2.5 % (0.0-4.0); HEMOGLOBIN 10.8 g/dL (11.0-16.0); LYMPH # 1.5 K/uL (1.0-4.3); LYMPH % 29.1 % (20.0-40.0); MEAN CELL VOLUME 80.4 fL (81.0-99.0); MEAN CORPUSCULAR HEMOGLOBIN 27.1 pg (27.0-31.0); MEAN CORPUSCULAR HGB CONC 33.7 g/dL (33.0-37.0); MEAN PLATELET VOLUME 7.8 fL (7.2-11.7); MONO # 0.7 K/uL (0.0-0.8); MONO % 13.4 % (0.0-10.0); NEUT # 2.9 K/uL (1.8-7.0); NEUT % 54.3 % (50.0-75.0); NRBC % 0.1 % (0.0-2.0); RED CELL DISTRIBUTION WIDTH 16.1 % (11.5-14.5); WHITE BLOOD COUNT 5.3 K/uL (4.8-10.8)
[2018-05-03 10:21] LABS: INR 1.2; PROTHROMBIN TIME 12.6 SECONDS (9.7-12.2)
[2018-05-03 10:25] LABS: BLOOD UREA NITROGEN 13 mg/dL (7-17); GFR NON-AFRICAN AMERICAN 54
[2018-05-03 10:26] LABS: ALB/GLOB RATIO 0.9 (1.0-2.1); ALBUMIN 3.4 g/dL (3.5-5.0); ALT/SGPT 12 U/L (9-52); AST/SGOT 12 U/L (14-36); CALCIUM 9.6 mg/dl (8.6-10.4)
--- NOTE | 2018-05-03 10:49 | C.PDOC ---
History Of Present Illness 77 year old female with a history of stents x2 presents to the ED for evaluation of left-sided chest pressure that began yesterday after having an argument. Patient reports feeling dizzy. Denies atrial fibrillation, shortness of breath, palpitations, fever, nausea, vomiting, and any other associated symptoms. Time Seen by Provider: 05/03/18 09:24 Chief Complaint (Nursing): Chest Pain History Per: Patient History/Exam Limitations: no limitations Onset/Duration Of Symptoms: Days Current Symptoms Are (Timing): Still Present Past Medical History Reviewed: Historical Data, Nursing Documentation, Vital Signs Vital Signs: Last Vital Signs Temp 97.9 F 05/03/18 09:32 Pulse 70 05/03/18 09:32 Resp 18 05/03/18 09:32 BP 112/63 05/03/18 09:32 Pulse Ox 98 05/03/18 09:32 - Medical History PMH: Anemia, Anxiety, Arthritis, CAD, HTN, Osteoporosis, Chronic Kidney Disease, Rheumatoid Arthritis Denies: HIV, Seizures, Sexually Transmitted Disease Surgical History: Coronary Stent (x2) Family History: States: Unknown Family Hx - Social History Hx Tobacco Use: No Hx Alcohol Use: No Hx Substance Use: No - Immunization History Hx Tetanus Toxoid Vaccination: No Hx Influenza Vaccination: No Hx Pneumococcal Vaccination: No Review Of Systems Constitutional: Negative for: Fever, Chills Cardiovascular: Positive for: Chest Pain (left-sided ) Respiratory: Negative for: Shortness of Breath Gastrointestinal: Negative for: Nausea, Vomiting Neurological: Positive for: Dizziness Physical Exam - Physical Exam Appears: Well, Non-toxic, No Acute Distress Skin: Normal Color, Warm, Dry Head: Atraumatic, Normacephalic Eye(s): bilateral: PERRL Oral Mucosa: Moist Neck: Normal ROM, Supple Chest: Symmetrical, No Deformity Cardiovascular: Rhythm Irregular (irregularly irregular heart rate.), No Murmur Respiratory: Normal Breath Sounds, No Rales, No Rhonchi, No Wheezing Gastrointestinal/Abdominal: Normal Exam, Soft, No Tenderness Extremity: Normal ROM (x4) Neurological/Psych: Oriented x3, Normal Speech, Normal Motor, Normal Sensation, Normal Reflexes Gait: Steady ED Course And Treatment - Laboratory Results Result Diagrams: 05/04/18 07:30 05/04/18 07:30 ECG Rhythm: Atrial Fibrillation Interpretation Of ECG: Atrial Fibrillation. Rate: 76 bmp. Normal axis. Prolonged QTC. No ST elevation Rate From EC O2 Sat by Pulse Oximetry: 98 (RA) Pulse Ox Interpretation: Normal - Other Rad CXR X-Ray: Viewed By Me, Read By Radiologist Interpretation: FINDINGS: LUNGS: No active pulmonary disease. PLEURA: No significant pleural effusion identified, no pneumothorax apparent. CARDIOVASCULAR: Normal. OSSEOUS STRUCTURES: No significant abnormalities. VISUALIZED UPPER ABDOMEN: Normal. OTHER FINDINGS: None. IMPRESSION: No active disease. Medical Decision Making Medical Decision Making: Plan: --EKG --Blood sent. --CXR Portable --Given: Nitroglycerin EKG: --Atrial fibrillation --Rate: 76 bmp --Normal axis --Prolonged QTC Patient given SL nitro with mild improvement in pain. Case discussed with patient's can worker Dr. Cook. He came to the ED to see the patient- reviewed EKG as well, afib is new for her. He will consult, would like hospitalist admission. Case discussed with hospitalist Dr. Cruz. Accepts patient for admission. Disposition - Disposition Disposition: HOSPITALIZED Disposition Time: 13:26 Condition: FAIR - Clinical Impression Clinical Impression: Chest pain, New onset atrial fibrillation - Scribe Statement The provider has reviewed the documentation as recorded by the Scribe (Chikis Brown) Provider Attestation: All medical record entries made by the Scribe were at my direction and personally dictated by me. I have reviewed the chart and agree that the record accurately reflects my personal performance of the history, physical exam, medical decision making, and the department course for this patient. I have also personally directed, reviewed, and agree with the discharge instructions and disposition.
--- NOTE | 2018-05-03 11:38 | RAD ---
Date of service: 05/03/2018 HISTORY: chest pain COMPARISON: 01/10/2018 FINDINGS: LUNGS: No active pulmonary disease. PLEURA: No significant pleural effusion identified, no pneumothorax apparent. CARDIOVASCULAR: Normal. OSSEOUS STRUCTURES: No significant abnormalities. VISUALIZED UPPER ABDOMEN: Normal. OTHER FINDINGS: None. IMPRESSION: No active disease.
--- NOTE | 2018-05-03 16:16 | CP.PCM.HP ---
History of Present Illness - History of Present Illness History of Present Illness: PGY-1 H&P note for hospitalist service. Patient is a 77 year old female with PMHx of CAD with stent placement x2, HTN, CKD, kidney and liver transplant, and anxiety who presents to ED for midsternal chest pain that began at approximately 2am during an argument with her daughter. Patient states she has never had pain this severe before. Patient states she went to bed and awoke with worsened pain prompting her to come to the hospital. Associated symptoms include dizziness, generalized weakness, and diaphoresis. She did not take anything for the pain. Denies shortness of breath, palpitations, nausea, vomiting, radiation of pain. fever, chills, lower extremity edema, orthopnea, and recent travel. PMHx:CAD with stent placement x2, HTN, anxiety, CKD PSHx: kidney transplant, liver transplant, corneal transplant, cardiac cathete rization x2, tubal ligation Meds: Labatolol 100mg BID, Amlodipine 10mg QD, tacrolimus 0.5mg BID, Tra madol/tylenol 37.5/32 Q12 PRN pain, clonazepam 0.5mg BID, Xolpidem 10mg HS Allergies: Iodine, penicillin Family Hx: denies Social: Denies tobacco, alcohol, drugs Emergency contact: daughterDahlia [phone] Code status: full code PMD: Dr. Eric, Advertising Specialist: Dr. Cook Present on Admission - Present on Admission Any Indicators Present on Admission: No Review of Systems - Constitutional Constitutional: Weakness. absent: Chills, Fever, Headache, Night Sweats - EENT Eyes: absent: Decreased Night Vision, Diplopia, Dry Eye, Irritation, Loss of Peripheral Vision, Requires Corrective Lenses, Sees Flashes, Tunnel Vision, Other Visual Disturbances, Loss of Vision Nose/Mouth/Throat: absent: Nasal Obstruction, Change in Voice, Lip Swelling, Tongue Swelling - Cardiovascular Cardiovascular: Chest Pain. absent: Dyspnea, Pain Radiating to Arm/Neck/Jaw, Leg Edema, Palpitations - Respiratory Respiratory: absent: Cough, Dyspnea, Hemoptysis, Dyspnea on Exertion - Gastrointestinal Gastrointestinal: absent: Diarrhea, Heartburn, Nausea - Musculoskeletal Musculoskeletal: absent: Abnormal Gait, Arthralgias, Limited Range of Motion, Muscle Weakness, Myalgias - Neurological Neurological: Dizziness. absent: Abnormal Hearing, Abnormal Speech, Focal Weakness, Headaches, Loss of Vision, Paresthesias Past Patient History - Infectious Disease Hx of Infectious Diseases: None - Tetanus Immunizations Tetanus Immunization: Unknown - Past Medical History & Family History Past Medical History?: Yes - Past Social History Smoking Status: Never Smoked - CARDIAC Hx Hypertension: Yes - PULMONARY Hx Tuberculosis: No - NEUROLOGICAL Hx Seizures: No - HEENT Hx HEENT Problems: Yes Other/Comment: Eliseo eye implants - RENAL Hx Chronic Kidney Disease: Yes - ENDOCRINE/METABOLIC Hx Endocrine Disorders: No - HEMATOLOGICAL/ONCOLOGICAL Hx Anemia: Yes Hx Human Immunodeficiency Virus (HIV): No - INTEGUMENTARY Hx Dermatological Problems: No - MUSCULOSKELETAL/RHEUMATOLOGICAL Hx Arthritis: Yes Hx Osteoporosis: Yes Hx Rheumatoid Arthritis: Yes - GASTROINTESTINAL Hx Gastrointestinal Disorders: Yes Other/Comment: Liver transplant, Kidney transplant. - GENITOURINARY/GYNECOLOGICAL Hx Sexually Transmitted Disorders: No - PSYCHIATRIC Hx Anxiety: Yes Hx Substance Use: No - SURGICAL HISTORY Hx Coronary Stent: Yes (x2) - ANESTHESIA Hx Anesthesia: Yes Hx Anesthesia Reactions: No Hx Malignant Hyperthermia: No Meds Allergies/Adverse Reactions: Allergies Allergy/AdvReac Type Severity Reaction Status Date / Time iodine Allergy Verified 12/28/17 19:39 Penicillins Allergy Verified 12/28/17 19:39 CT scan IV dye Allergy Uncoded 12/28/17 19:39 Physical Exam - Constitutional Appears: Non-toxic, No Acute Distress - Head Exam Head Exam: ATRAUMATIC, NORMOCEPHALIC - Eye Exam Eye Exam: EOMI, Normal appearance - ENT Exam ENT Exam: Mucous Membranes Moist - Respiratory Exam Respiratory Exam: Clear to Auscultation Bilateral, NORMAL BREATHING PATTERN. absent: Rales, Rhonchi, Wheezes - Cardiovascular Exam Cardiovascular Exam: Irregular Rhythm, +S1, +S2 - GI/Abdominal Exam GI & Abdominal Exam: Normal Bowel Sounds, Soft, Tenderness (RUQ). absent: Guarding, Rebound Additional comments: R flank swelling - Extremities Exam Extremities exam: Positive for: normal inspection, pedal pulses present. Negative for: calf tenderness, pedal edema, tenderness - Neurological Exam Neurological exam: Alert, CN II-XII Intact, Oriented x3 - Psychiatric Exam Psychiatric exam: Anxious, Manic - Skin Skin Exam: Dry, Intact, Normal Color, Warm Results - Vital Signs Recent Vital Signs: Last Vital Signs Temp 97.9 F 05/03/18 09:32 Pulse 75 05/03/18 15:35 Resp 22 05/03/18 15:35 BP 139/83 05/03/18 15:35 Pulse Ox 98 05/03/18 15:35 - Labs Result Diagrams: 05/03/18 10:05/03/18 10:09 Labs: Laboratory Results - last 24 hr 05/03/18 05/03/18 05/03/18 10:09 10:09 10:09 WBC 5.3 RBC 4.00 Hgb 10.8 L Hct 32.1 L MCV 80.4 L MCH 27.1 MCHC 33.7 RDW 16.1 H Plt Count 203 MPV 7.8 Neut % (Auto) 54.3 Lymph % (Auto) 29.1 [place] % (Auto) 13.4 H Eos % (Auto) 2.5 Baso % (Auto) 0.7 Neut # (Auto) 2.9 Lymph # (Auto) 1.5 [place] # (Auto) 0.7 Eos # (Auto) 0.1 Baso # (Auto) 0.0 PT 12.6 H INR 1.2 APTT 32 D-Dimer, Quantitative Sodium 140 Potassium 4.1 Chloride 105 Carbon Dioxide 25 Anion Gap 15 BUN 13 Creatinine 1.0 Est GFR ( Amer) > 60 Est GFR (Non-Af Amer) 54 Random Glucose 134 H Calcium 9.6 Phosphorus 3.2 Magnesium 1.7 Total Bilirubin 0.4 AST 12 L D ALT 12 Alkaline Phosphatase 91 Troponin I < 0.0120 NT-Pro-B Natriuret Pep Total Protein 6.9 Albumin 3.4 L Globulin 3.6 Albumin/Globulin Ratio 0.9 L 05/03/18 05/03/18 13:39 13:39 WBC RBC Hgb Hct MCV MCH MCHC RDW Plt Count MPV Neut % (Auto) Lymph % (Auto) [place] % (Auto) Eos % (Auto) Baso % (Auto) Neut # (Auto) Lymph # (Auto) [place] # (Auto) Eos # (Auto) Baso # (Auto) PT INR APTT D-Dimer, Quantitative 297 H Sodium Potassium Chloride Carbon Dioxide Anion Gap BUN Creatinine Est GFR ( Amer) Est GFR (Non-Af Amer) Random Glucose Calcium Phosphorus Magnesium Total Bilirubin AST ALT Alkaline Phosphatase Troponin I NT-Pro-B Natriuret Pep 2440 H Total Protein Albumin Globulin Albumin/Globulin Ratio Assessment & Plan - Assessment and Plan (Free Text) Plan: Patient is a 77 year old female with PMHx of CAD with stent placement x2, HTN, anxiety, CKD, kidney and liver transplant who presents to ED for midsternal chest pain. Chest pain rule out ACS EKG: Atrial fibrillation at 76bpm Troponin x2 negative, f/u Echocardiogram: f/u Lipid panel Hgb A1c TSH Elevated Ddimer Ddimer 297 CTA Chest: f/u LE dopplers: f/u Lovenox 60mg Q12H Atrial fibrillation Labetalol 100mg BID HTN Amlodipine 10mg QD Labetalol 100mg BID CAD s/p stent placement ASA 81mg daily Crestor 5mg daily Hx of liver/kidney transplant CKD Tacrolimus 0.5mg Q12H Nephro, Dr. Chaudhary, consulted. Help appreciated. Anxiety Clonazepam 0.5mg BID PRN Prophylaxis therapeutic lovenox Hold SCDs pending LE doppler results Pepcid 40mg Daily Heart Healthy diet - Date & Time Date: 05/03/18 Time: 14:00
[2018-05-03 16:39] LABS: CK-MB 0.78 ng/mL (0.0-3.38)
[2018-05-03] MEDS ORDERED: DiphenhydrAMINE 50 mg/ml Inj IVP PRN ×2 (17:36→18:45)
[2018-05-03 18:12] VITALS: RESP 20
--- NOTE | 2018-05-03 21:44 | CON ---
DATE: 05/03/2018 CARDIOLOGY CONSULTATION REASON FOR CONSULTATION: New-onset atrial fibrillation. 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 The patient also has history of coronary artery disease, status post LAD stenting many years ago. She presented because of left-sided chest pain as well as dizziness. The patient denies any syncope. The patient is unaware of any history of atrial fibrillation in the past and has as far as I recall during her repeated evaluation at [facility], she never had atrial fibrillation. SOCIAL HISTORY: The patient is a nonsmoker. She lives with her daughter. REVIEW OF SYSTEMS: No nausea or vomiting. No fever or chills. The patient experienced dizziness but no syncope or fall. MEDICATIONS: The patient does not recall her medications, and they are not listed yet in the [employer] database. PHYSICAL EXAMINATION: GENERAL: The patient is an elderly female who does not appear to be in acute distress. VITAL SIGNS: Blood pressure 139/83, heart rate 75, temperature 97.9, respirations 22. HEENT: Normocephalic. NECK: No JVD. CHEST: Clear. HEART: S1 and S2, irregular. ABDOMEN: Soft. EXTREMITIES: No edema. LABORATORY DATA: PT 12.6, INR is 1.2, and PTT is 32. D-dimer is elevated, 297. SMA-7: Sodium 140, potassium 4.1, chloride 105, CO2 of 25, glucose 134, BUN 15, creatinine 1. One set of troponin is negative. ProBNP is 2440. EKG revealed atrial fibrillation at rate of 76, nonspecific ST-T wave changes. Chest x-ray revealed cardiomegaly and slightly widened mediastinum and prominent bronchovascular markings. ASSESSMENT: 1. Chest pain, rule out myocardial infarction. 2. Rule out pulmonary infarction. 3. New-onset atrial fibrillation. 4. Status post liver and kidney transplant. RECOMMENDATIONS: Admit the patient to telemetry. Start aspirin 81 mg once a day, therapeutic subcutaneous Lovenox at 60 mg twice a day. Obtain a chest CT angio with pulmonary embolism protocol. I will review the echocardiographic study performed today. Walter Cook MD [facility] # [id number]
[2018-05-03] MEDS: Enoxaparin 60 mg Syringe SC SCH (22:59)
[2018-05-03 23:03] LABS: CK-MB 0.74 ng/mL (0.0-3.38)
[2018-05-04 07:39] LABS: BASO # 0.1 K/uL (0.0-0.2); BASO % 0.9 % (0.0-2.0); EOS # 0.1 K/uL (0.0-0.7); HEMOGLOBIN 11.8 g/dL (11.0-16.0); LYMPH # 1.7 K/uL (1.0-4.3); LYMPH % 28.6 % (20.0-40.0); MEAN CELL VOLUME 80.3 fL (81.0-99.0); MEAN CORPUSCULAR HEMOGLOBIN 26.9 pg (27.0-31.0); MEAN CORPUSCULAR HGB CONC 33.6 g/dL (33.0-37.0); MEAN PLATELET VOLUME 7.9 fL (7.2-11.7); MONO # 0.7 K/uL (0.0-0.8); MONO % 11.8 % (0.0-10.0); NEUT # 3.4 K/uL (1.8-7.0); NEUT % 56.7 % (50.0-75.0); NRBC % 0.1 % (0.0-2.0); RBC 4.37 Mil/uL (3.80-5.20); RED CELL DISTRIBUTION WIDTH 16.7 % (11.5-14.5); WHITE BLOOD COUNT 5.9 K/uL (4.8-10.8)
--- NOTE | 2018-05-04 07:58 | CARD ---
APPROVED REPORT Date of service: 05/03/2018 EXAM: Two-dimensional and M-mode echocardiogram with Doppler and color Doppler. Other Information Quality : Rhythm : Atrial Fibrillation INDICATION Dizziness and Vertigo Chest Pain RISK FACTORS Hypertension 2D DIMENSIONS IVSd1.4 (0.7-1.1cm)Aortic Root (2D)3.7 (2.0-3.7cm) LVDd5.1 (3.9-5.9cm)PWd1.2 (0.7-1.1cm) LA Yhslbc07 (18-58mL)LVDs2.9 (2.5-4.0cm) FS (%) 40.0 %LVEF (%)70.0 (>50%) LVEF (Claire's)60 %IVC0.00 cm M-Mode DIMENSIONS Left Atrium (MM)4.61 (2.5-4.0cm)IVSd1.11 (0.7-1.1cm) Aortic Root3.36 (2.2-3.7cm)LVDd6.75 (4.0-5.6cm) Aortic Cusp Exc.1.51 (1.5-2.0cm)PWd1.14 (0.7-1.1cm) FS (%) 36 %LVDs4.31 (2.0-3.8cm) LVEF (%)64 (>50%) Aortic Valve AI P 1/2 [id number] Mitral Valve MV E Mikmhpta531.9cm/sMV E Peak Gr.119mmHgMV A Jkatgdah30.1cm/s MV E Mean Gr.73mmHgE/A ratio3.6 TDI Lateral E' Peak V10.93cm/sMedial E' Peak V7.51cm/sE/Lateral E'13.6 E/Medial E'19.8 Tricuspid Valve TR Peak [id number]/sTR Peak Gr.42kkLzUWJC21wiTj <Conclusion> Left ventricle: thickness: normal; size: normal; overall ejection fraction: 65%: diastolic filling pressures: elevated Mitral valve: annulus: normal: leaflets: normal: excursion: normal; no significant trans-mitral gradient: mild to moderate incompetence: left atrium:dilated Aortic valve: leaflets: mild calcific thickening: excursion: normal; no significant trans-aortic gradient:mild incompetence: aortic root: upper limit of normal Right sided Structures: Pulmonary valve: normal; no significant incompetence; Tricuspid valve: normal; no significant incompetence: Intra-cardiac hemodynamics: pulmonary systolic pressures: 45mmHg; central venous pressures: normal No pericardial effusion
[2018-05-04 08:01] LABS: ALB/GLOB RATIO 0.9 (1.0-2.1); ALBUMIN 3.6 g/dL (3.5-5.0); ALT/SGPT 12 U/L (9-52); AST/SGOT 19 U/L (14-36); BLOOD UREA NITROGEN 14 mg/dL (7-17); CALCIUM 9.9 mg/dl (8.6-10.4); GFR NON-AFRICAN AMERICAN 54; HDL CHOLESTEROL 40 mg/dL (30-70)
[2018-05-04 08:18] LABS: LDL CHOLESTEROL 128 mg/dL (0-129)
[2018-05-04] MEDS ORDERED: Sodium Chloride 0.9% 1,000 ML IV SCH (09:30)
--- NOTE | 2018-05-04 09:53 | CP.PCM.PN ---
Subjective - Date & Time of Evaluation Date of Evaluation: 05/04/18 Time of Evaluation: 07:00 - Subjective Subjective: Patient was seen and examined at bedside. Patient is in no acute distress. Denies any new episodes of chest pain, dizziness or diaphoresis. Denies nausea, vomiting, fevers, chills. Objective - Vital Signs/Intake and Output Vital Signs (last 24 hours): Temp Pulse Resp BP Pulse Ox 98.0 F 79 20 148/89 94 L 05/04/18 08:07 05/04/18 08:07 05/04/18 08:07 05/04/18 08:07 05/04/18 08:07 Intake and Output: 05/04/18 05/04/18 06:59 18:59 Intake Total 250 Balance 250 - Medications Medications: Current Medications Acetaminophen (Tylenol 325mg Tab) 650 mg PO Q6 PRN PRN Reason: Pain, moderate (4-7) Amlodipine Besylate (Norvasc) 10 mg PO DAILY [facility] Aspirin (Aspirin Chewable) 81 mg PO DAILY [facility] Last Admin: 05/03/18 16:26 Dose: 81 mg Clonazepam (Klonopin) 0.5 mg PO BID PRN PRN Reason: Anxiety Diphenhydramine HCl (Benadryl) 50 mg IVP Q8H PRN PRN Reason: Allergy symptoms Enoxaparin Sodium (Lovenox) 60 mg SC Q12 [facility] Last Admin: 05/03/18 22:59 Dose: 60 mg Famotidine (Pepcid) 40 mg PO DAILY [facility] Sodium Chloride (Sodium Chloride 0.9%) 1,000 mls @ 100 mls/hr IV .Q10H [facility] Stop: 05/05/18 09:31 Labetalol HCl (Trandate) 100 mg PO BID [facility] Last Admin: 05/03/18 22:30 Dose: Not Given Rosuvastatin Calcium (Crestor) 5 mg PO HS [facility] Last Admin: 05/03/18 22:59 Dose: Not Given Tacrolimus (Prograf Cap) 0.5 mg PO Q12 [facility] Last Admin: 05/03/18 22:30 Dose: Not Given Zolpidem Tartrate (Ambien) 5 mg PO HS PRN PRN Reason: Insomnia Last Admin: 05/03/18 23:03 Dose: 5 mg - Labs Labs: 05/04/18 07:30 05/04/18 07:30 PT 12.6 SECONDS (9.7-12.2) H 05/03/18 10:09 INR 1.2 05/03/18 10:09 APTT 32 SECONDS (21-34) 05/03/18 10:09 - Head Exam Head Exam: ATRAUMATIC, NORMOCEPHALIC - Eye Exam Eye Exam: EOMI - ENT Exam ENT Exam: Mucous Membranes Moist - Neck Exam Neck Exam: Full ROM - Respiratory Exam Respiratory Exam: Clear to Ausculation Bilateral, NORMAL BREATHING PATTERN. absent: Rales, Rhonchi, Wheezes - Cardiovascular Exam Cardiovascular Exam: REGULAR RHYTHM - GI/Abdominal Exam GI & Abdominal Exam: Soft, Tenderness (RUQ and R flank), Normal Bowel Sounds. absent: Rigid, Rebound - Neurological Exam Neurological Exam: Alert, Awake, Oriented x3 - Psychiatric Exam Psychiatric exam: Normal Mood - Skin Skin Exam: Dry, Normal Color, Warm Assessment and Plan - Assessment and Plan (Free Text) Plan: Patient is a 77 year old female with PMHx of CAD with stent placement x2, HTN, anxiety, CKD, kidney and liver transplant who presents to ED for midsternal chest pain. Chest pain rule out ACS EKG: Atrial fibrillation at 76bpm Troponin x2 negative, f/u Echocardiogram: f/u Lipid panel Hgb A1c TSH Dr. Marc, Cardiology consulted. Help appreciated. Elevated Ddimer Ddimer 297 CTA Chest: f/u LE dopplers: f/u Lovenox 60mg Q12H Atrial fibrillation Labetalol 100mg BID HTN Amlodipine 10mg QD Labetalol 100mg BID CAD s/p stent placement ASA 81mg daily Crestor 5mg daily Hx of liver/kidney transplant CKD Tacrolimus 0.5mg Q12H Nephro, Dr. Chaudhary, consulted. Help appreciated. Anxiety Clonazepam 0.5mg BID PRN Prophylaxis therapeutic lovenox Hold SCDs pending LE doppler results Pepcid 40mg Daily Heart Healthy diet
[2018-05-04] MEDS: Enoxaparin 60 mg Syringe SC SCH (09:56)
[2018-05-04 10:44] VITALS: O2SAT 98
--- NOTE | 2018-05-04 11:55 | VASCLAB ---
Date of service: 05/04/2018 PROCEDURE: Lower Extremity Venous Duplex Exam. HISTORY: Elevated Ddimer PRIORS: None. TECHNIQUE: Bilateral common femoral, femoral, popliteal and posterior tibial, peroneal and great saphenous veins were evaluated. Flow was assessed with color Doppler, compressibility, assessment of phasic flow and augmentation response. Report prepared by JAZ Cabezas FINDINGS: RIGHT: 1. Common Femoral Vein: 1.1. Compressibility - Fully compressible: Thrombus - None : Flow - Phasic: Augmentation -Normal: Reflux - None. 2. Femoral Vein: 2.1. Compressibility - Fully compressible: Thrombus - None : Flow - Phasic: Augmentation -Normal: Reflux - None. 3. Popliteal Vein: 3.1. Compressibility - Fully compressible: Thrombus - None : Flow - Phasic: Augmentation -Normal: Reflux - None. 4. Posterior Tibial Vein: 4.1. Compressibility - Fully compressible: Thrombus - None: Flow - Phasic: Augmentation -Normal: Reflux - None. 5. Peroneal Vein: 5.1. Compressibility - Fully compressible: Thrombus - None: Flow - Phasic: Augmentation -Normal: Reflux - None. 6. Great Saphenous Vein: 6.1. Compressibility - Fully compressible: Thrombus - None: Flow - Phasic: Augmentation - Normal: Reflux - None. LEFT: 1. Common Femoral Vein: 1.1. Compressibility - Fully compressible: Thrombus - None: Flow - Phasic: Augmentation -Normal: Reflux - None. 2. Femoral Vein: 2.1. Compressibility - Fully compressible: Thrombus - None: Flow - Phasic: Augmentation -Normal: Reflux - None. 3. Popliteal Vein: 3.1. Compressibility - Fully compressible: Thrombus - None : Flow - Phasic: Augmentation -Normal: Reflux - None. 4. Posterior Tibial Vein: 4.1. Compressibility - Fully compressible: Thrombus - None: Flow - Phasic: Augmentation -Normal: Reflux - None. 5. Peroneal Vein: 5.1. Compressibility - Fully compressible: Thrombus - None: Flow - Phasic: Augmentation -Normal: Reflux - None. 6. Great Saphenous Vein: 6.1. Compressibility - Fully compressible: Thrombus - None: Flow - Phasic: Augmentation - Normal: Reflux - None. OTHER FINDINGS: Right: Anechoic, fluid filled structure noted behind the right knee, measuring 3.15 x 1.84 cm, questionable wade's cyst. Left: None significant. IMPRESSION: Right: No evidence of deep or superficial vein thrombosis of the right lower extremity. Normal valve function noted of the right side. Left: No evidence of deep or superficial vein thrombosis of the left lower extremity. Normal valve function noted of the left side.
--- NOTE | 2018-05-04 15:19 | CP.PCM.CON ---
History of Present Illness - History of Present Illness History of Present Illness: Nephrology Consultation: Assessment: Stable Chest pain CAD s/p stent, hypertension ESRD/ESLD s/p liver and kidney transplant 25 years ago Plan renal transplant: no active issues. continue with her home dose of prograf. Hypertension control with meds as ordered. Dose meds/antibiotics for normal GFR. Avoid nephrotoxins/NSAIDs pt planned for CTA, ordered for IVF as NS @ 100 ml/hr to reduce risk of contrast induced MARIA ESTHER Glycemic control Further work up/management as per primary team cardiology following Thanks for allowing me to participate in care of your patient. will follow with you. Please call if any Qs. had d/w team Dr Edi Chaudhary Office: [phone] Chief Complaint; chest pain HPI: Pt is a 77 y/o F with hx of CAD s/p stent, hypertension and ESRD/ESLD s/p liver and kidney transplant 25 years ago came here with chest pain, so far cardiac work up neg. renal consult for transplant management Now she denies chest pain, palpitation, shortness of breath, leg swelling Denies blood or bubbles in urine Denies OTC/herbal meds or NSAIDs No recent iodinated contrast exposure. No obvious episodes of low BP. 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 No chills. No Recent Weight Changes Eyes: denies change in vision, denies watery eyes, denies double vision Cardiovascular: No chest pain now There is no shortness of breath. No palpitations. had chest pain earlier Pulmonary: No shortness of breath no cough. Gastrointestinal: no abdominal pain no nausea. No vomiting. Denies change in bowel habits. Denies Bleeding Genitourinary: No Change in force of strain when urinating. c/o increase in urinary frequency. No pain while urinating. Denies blood in urine. Neurological: Denies headaches. No dizziness. Denies loss of balance. Denies weakness, denies tingling/numbness Dermatological: No Rash or Bruising or ulcers. Psychiatric: Denies Anxiety. No depression. Denies hallucinations. Rheumatological: No joint pain. Denies Joint swelling Endocrine: Denies tiredness/Fatigue denies Heat/Cold Intolerance now All other negative Physical Examination: General Appearance: Comfortable, in no acute respiratory distress, co-operative . Vitals reviewed and noted as below Head; Atraumatic, normocephalic ENT: no ulcers no thrush. Tongue is midline. Oropharynx: no rash or ulcers. EYES: Pupils are equal, round and reactive to light accommodation. Eye muscles and extraocular movement intact. Sclera is anicteric. Neck; supple no lymphadenopathy, no thyromegaly or bruit Lungs: Normal respiratory rate/effort. Breath sounds bilateral equal and clear Heart: Normal rate. s1s2 normal. No rub or gallop. Extremities: no edema. No varicose veins Neurological: Patient is alert, awake and oriented to person, place and time. No focal deficit. Strength bilateral appropriate and equal Skin: Warm and dry. Normal turgor. No rash. Palpitation: Normal elasticity for age Abdomen: Abdomen is soft. Bowel sounds +. There is no abdominal tenderness, no guarding/rigidity no organomegaly Psych: normal insight and normal affect/mood MSK: no joint tenderness or swelling. Digits and nails normal, no deformity : kidney or bladder not palpable Labs/imaging/EKG reviewed. Past medical history, past surgical history, family history, social history, allergy reviewed and noted as below Family hx: no hx of CKD. Rest non-contributory Past Patient History - Infectious Disease Hx of Infectious Diseases: None - Tetanus Immunizations Tetanus Immunization: Unknown - Past Medical History & Family History Past Medical History?: Yes - Past Social History Smoking Status: Never Smoked - CARDIAC Hx Hypertension: Yes - PULMONARY Hx Tuberculosis: No - NEUROLOGICAL Hx Seizures: No - HEENT Hx HEENT Problems: Yes Other/Comment: Eliseo eye implants - RENAL Hx Chronic Kidney Disease: Yes - ENDOCRINE/METABOLIC Hx Endocrine Disorders: No - HEMATOLOGICAL/ONCOLOGICAL Hx Anemia: Yes Hx Human Immunodeficiency Virus (HIV): No - INTEGUMENTARY Hx Dermatological Problems: No - MUSCULOSKELETAL/RHEUMATOLOGICAL Hx Arthritis: Yes Hx Osteoporosis: Yes Hx Rheumatoid Arthritis: Yes - GASTROINTESTINAL Hx Gastrointestinal Disorders: Yes Other/Comment: Liver transplant, Kidney transplant. - GENITOURINARY/GYNECOLOGICAL Hx Sexually Transmitted Disorders: No - PSYCHIATRIC Hx Anxiety: Yes Hx Substance Use: No - SURGICAL HISTORY Hx Coronary Stent: Yes (x2) - ANESTHESIA Hx Anesthesia: Yes Hx Anesthesia Reactions: No Hx Malignant Hyperthermia: No Meds Allergies/Adverse Reactions: Allergies Allergy/AdvReac Type Severity Reaction Status Date / Time iodine Allergy Verified 12/28/17 19:39 Penicillins Allergy Verified 12/28/17 19:39 CT scan IV dye Allergy Uncoded 12/28/17 19:39 - Medications Medications: Current Medications Acetaminophen (Tylenol 325mg Tab) 650 mg PO Q6 PRN PRN Reason: Pain, moderate (4-7) Amlodipine Besylate (Norvasc) 10 mg PO DAILY [facility] Last Admin: 05/04/18 09:45 Dose: 10 mg Aspirin (Aspirin Chewable) 81 mg PO DAILY [facility] Last Admin: 05/04/18 09:46 Dose: 81 mg Clonazepam (Klonopin) 0.5 mg PO BID PRN PRN Reason: Anxiety Diphenhydramine HCl (Benadryl) 50 mg IVP Q8H PRN PRN Reason: Allergy symptoms Enoxaparin Sodium (Lovenox) 60 mg SC Q12 [facility] Last Admin: 05/04/18 09:56 Dose: 60 mg Famotidine (Pepcid) 40 mg PO DAILY [facility] Last Admin: 05/04/18 09:45 Dose: 40 mg Sodium Chloride (Sodium Chloride 0.9%) 1,000 mls @ 100 mls/hr IV .Q10H [facility] Stop: 05/05/18 09:31 Last Admin: 05/04/18 10:30 Dose: 100 mls/hr Labetalol HCl (Trandate) 100 mg PO BID [facility] Last Admin: 05/04/18 09:46 Dose: 100 mg Rosuvastatin Calcium (Crestor) 5 mg PO HS [facility] Last Admin: 05/03/18 22:59 Dose: Not Given Tacrolimus (Prograf Cap) 0.5 mg PO Q12 [facility] Last Admin: 05/04/18 09:46 Dose: 0.5 mg Zolpidem Tartrate (Ambien) 5 mg PO HS PRN PRN Reason: Insomnia Last Admin: 05/03/18 23:03 Dose: 5 mg Results - Vital Signs Recent Vital Signs: Last Vital Signs Temp 98.0 F 05/04/18 08:07 Pulse 68 05/04/18 12:25 Resp 20 05/04/18 08:07 BP 148/89 05/04/18 08:07 Pulse Ox 98 05/04/18 10:45 - Labs Result Diagrams: 05/04/18 07:30 05/04/18 07:30 Labs: Laboratory Results - last 24 hr 05/03/18 05/03/18 05/04/18 16:08 22:37 07:30 WBC 5.9 RBC 4.37 Hgb 11.8 Hct 35.1 MCV 80.3 L MCH 26.9 L MCHC 33.6 RDW 16.7 H Plt Count 237 MPV 7.9 Neut % (Auto) 56.7 Lymph % (Auto) 28.6 [place] % (Auto) 11.8 H Eos % (Auto) 2.0 Baso % (Auto) 0.9 Neut # (Auto) 3.4 Lymph # (Auto) 1.7 [place] # (Auto) 0.7 Eos # (Auto) 0.1 Baso # (Auto) 0.1 Sodium Potassium Chloride Carbon Dioxide Anion Gap BUN Creatinine Est GFR ( Amer) Est GFR (Non-Af Amer) Random Glucose Hemoglobin A1c Calcium Phosphorus Magnesium Total Bilirubin AST ALT Alkaline Phosphatase Total Creatine Kinase 89 83 CK-MB (Mass) 0.78 0.74 Troponin I < 0.0120 < 0.0120 Total Protein Albumin Globulin Albumin/Globulin Ratio Triglycerides Cholesterol LDL Cholesterol Direct HDL Cholesterol Free T4 TSH 3rd Generation 05/04/18 05/04/18 05/04/18 07:30 07:30 07:30 WBC RBC Hgb Hct MCV MCH MCHC RDW Plt Count MPV Neut % (Auto) Lymph % (Auto) [place] % (Auto) Eos % (Auto) Baso % (Auto) Neut # (Auto) Lymph # (Auto) [place] # (Auto) Eos # (Auto) Baso # (Auto) Sodium 143 Potassium 4.1 Chloride 105 Carbon Dioxide 26 Anion Gap 16 BUN 14 Creatinine 1.0 Est GFR ( Amer) > 60 Est GFR (Non-Af Amer) 54 Random Glucose 109 H Hemoglobin A1c 6.3 Calcium 9.9 Phosphorus 3.6 Magnesium 1.7 Total Bilirubin 0.7 AST 19 ALT 12 Alkaline Phosphatase 92 Total Creatine Kinase CK-MB (Mass) Troponin I Total Protein 7.6 Albumin 3.6 Globulin 3.9 Albumin/Globulin Ratio 0.9 L Triglycerides 184 H D Cholesterol 213 H LDL Cholesterol Direct 128 HDL Cholesterol 40 Free T4 1.22 TSH 3rd Generation 1.86
--- NOTE | 2018-05-04 15:48 | CP.PCM.DIS ---
Provider - Provider Date of Admission: 05/03/18 13:26 Attending physician: Ifeoma Cruz DO Time Spent in preparation of Discharge (in minutes): 35 Diagnosis - Discharge Diagnosis (1) Atrial fibrillation Status: Acute (2) Chest pain Status: Acute Hospital Course - Lab Results Lab Results: Most Recent Lab Values WBC 5.9 K/uL (4.8-10.8) 05/04/18 07:30 RBC 4.37 Mil/uL (3.80-5.20) 05/04/18 07:30 Hgb 11.8 g/dL (11.0-16.0) 05/04/18 07:30 Hct 35.1 % (34.0-47.0) 05/04/18 07:30 MCV 80.3 fL (81.0-99.0) L 05/04/18 07:30 MCH 26.9 pg (27.0-31.0) L 05/04/18 07:30 MCHC 33.6 g/dL (33.0-37.0) 05/04/18 07:30 RDW 16.7 % (11.5-14.5) H 05/04/18 07:30 Plt Count 237 K/uL (130-400) 05/04/18 07:30 MPV 7.9 fL (7.2-11.7) 05/04/18 07:30 Neut % (Auto) 56.7 % (50.0-75.0) 05/04/18 07:30 Lymph % (Auto) 28.6 % (20.0-40.0) 05/04/18 07:30 [place] % (Auto) 11.8 % (0.0-10.0) H 05/04/18 07:30 Eos % (Auto) 2.0 % (0.0-4.0) 05/04/18 07:30 Baso % (Auto) 0.9 % (0.0-2.0) 05/04/18 07:30 Neut # (Auto) 3.4 K/uL (1.8-7.0) 05/04/18 07:30 Lymph # (Auto) 1.7 K/uL (1.0-4.3) 05/04/18 07:30 [place] # (Auto) 0.7 K/uL (0.0-0.8) 05/04/18 07:30 Eos # (Auto) 0.1 K/uL (0.0-0.7) 05/04/18 07:30 Baso # (Auto) 0.1 K/uL (0.0-0.2) 05/04/18 07:30 PT 12.6 SECONDS (9.7-12.2) H 05/03/18 10:09 INR 1.2 05/03/18 10:09 APTT 32 SECONDS (21-34) 05/03/18 10:09 D-Dimer, Quantitative 297 ng/mlDDU (0-243) H 05/03/18 13:39 Sodium 143 mmol/L (132-148) 05/04/18 07:30 Potassium 4.1 mmol/L (3.6-5.2) 05/04/18 07:30 Chloride 105 mmol/L (98-107) 05/04/18 07:30 Carbon Dioxide 26 mmol/L (22-30) 05/04/18 07:30 Anion Gap 16 (10-20) 05/04/18 07:30 BUN 14 mg/dL (7-17) 05/04/18 07:30 Creatinine 1.0 mg/dL (0.7-1.2) 05/04/18 07:30 Est GFR ( Amer) > 60 05/04/18 07:30 Est GFR (Non-Af Amer) 54 05/04/18 07:30 Random Glucose 109 mg/dL (65-105) H 05/04/18 07:30 Hemoglobin A1c 6.3 % (4.2-6.5) 05/04/18 07:30 Calcium 9.9 mg/dl (8.6-10.4) 05/04/18 07:30 Phosphorus 3.6 mg/dL (2.5-4.5) 05/04/18 07:30 Magnesium 1.7 mg/dL (1.6-2.3) 05/04/18 07:30 Total Bilirubin 0.7 mg/dL (0.2-1.3) 05/04/18 07:30 AST 19 U/L (14-36) 05/04/18 07:30 ALT 12 U/L (9-52) 05/04/18 07:30 Alkaline Phosphatase 92 U/L (38-126) 05/04/18 07:30 Total Creatine Kinase 83 U/L (30-135) 05/03/18 22:37 CK-MB (Mass) 0.74 ng/mL (0.0-3.38) 05/03/18 22:37 Troponin I < 0.0120 ng/mL (0.00-0.120) 05/03/18 22:37 NT-Pro-B Natriuret Pep 2440 pg/mL (0-900) H 05/03/18 13:39 Total Protein 7.6 g/dL (6.3-8.3) 05/04/18 07:30 Albumin 3.6 g/dL (3.5-5.0) 05/04/18 07:30 Globulin 3.9 gm/dL (2.2-3.9) 05/04/18 07:30 Albumin/Globulin Ratio 0.9 (1.0-2.1) L 05/04/18 07:30 Triglycerides 184 mg/dL (0-149) H D 05/04/18 07:30 Cholesterol 213 mg/dL (0-199) H 05/04/18 07:30 LDL Cholesterol Direct 128 mg/dL (0-129) 05/04/18 07:30 HDL Cholesterol 40 mg/dL (30-70) 05/04/18 07:30 Free T4 1.22 ng/dL (0.78-2.19) 05/04/18 07:30 TSH 3rd Generation 1.86 mIU/L (0.46-4.68) 05/04/18 07:30 - Hospital Course Hospital Course: On admission: Patient is a 77 year old female with PMHx of CAD with stent placement x2, HTN, CKD, kidney and liver transplant, and anxiety who presents to ED for midsternal chest pain that began at approximately 2am during an argument with her daughter. Patient states she has never had pain this severe before. Patient states she went to bed and awoke with worsened pain prompting her to come to the hospital. Associated symptoms include dizziness, generalized weakness, and diaphoresis. She did not take anything for the pain. Denies shortness of breath, palpitations, nausea, vomiting, radiation of pain. fever, chills, lower extremity edema, orthopnea, and recent travel. Hospitalization: Patient was admitted for new onset afib and chest pain. EKG showed Afib x3. Patient. Patient was treated with Labatolol 100mg BID. Echo showed EF of 60%, LA dilated, mild calcific thickining of aortic valve (see full report). D-dimer was elevated and patient was treated with therapeutic dose of lovenox. CXR showed no acute disease. LE dopplers were negative. Patient refused CTA chest. Patient's daughter came, patient became very agitated and manic and walked out refusing to sign AMA form. Patient's daughter signed AMA paperwork on her behalf. Patient was given script for Eliquis 2.5mg BID and recommended to follow up with PMD within one week. Discharge Exam - Head Exam Head Exam: ATRAUMATIC, NORMOCEPHALIC - Eye Exam Eye Exam: EOMI, Normal appearance, PERRL - ENT Exam ENT Exam: Mucous Membranes Moist - Respiratory Exam Respiratory Exam: Clear to PA & Lateral, NORMAL BREATHING PATTERN. absent: Rales, Rhonchi - Cardiovascular Exam Cardiovascular Exam: Irregular Rhythm, +S1, +S2 - GI/Abdominal Exam GI & Abdominal Exam: Tenderness (RUQ) Additional comments: RUQ swelling - Neurological Exam Neurological exam: Alert, Oriented x3 - Psychiatric Exam Psychiatric exam: Agitated, Manic - Skin Skin Exam: Dry, Normal Color, Warm Discharge Plan - Discharge Medications Prescriptions: Apixaban [Eliquis] 2.5 mg PO BID #56 tablet - Follow Up Plan Condition: FAIR Disposition: AGAINST MEDICAL ADVICE
[2018-05-04 16:25] VITALS: BP 124/78; TEMP 98.1
--- NOTE | 2018-05-04 16:48 | CARD ---
APPROVED REPORT Date of service: 05/03/2018 EKG Measurement Heart [id number] <Conclusion> Atrial fibrillation Nonspecific ST and T wave abnormality Abnormal ECG
--- NOTE | 2018-05-04 16:48 | CARD ---
APPROVED REPORT Date of service: 05/03/2018 EKG Measurement Heart [id number] <Conclusion> Atrial fibrillation Nonspecific ST and T wave abnormality Abnormal ECG
--- NOTE | 2018-05-04 16:48 | CARD ---
APPROVED REPORT Date of service: 05/03/2018 EKG Measurement Heart [id number] <Conclusion> Atrial fibrillation Nonspecific ST and T wave abnormality Abnormal ECG
--- NOTE | 2018-05-04 19:11 | PN ---
DATE: 05/04/2018 SUBJECTIVE: The patient denies any chest pain. She is still in atrial fibrillation. The patient denies any palpitation. PHYSICAL EXAMINATION: VITAL SIGNS: Blood pressure 148/89, heart rate 79, temperature 98, respirations 20. HEENT: Normocephalic. CHEST: Clear. HEART: S1 and S2, irregular. ABDOMEN: Soft. EXTREMITIES: No edema. LABORATORY DATA: Today's SMA-7 is within normal limits except for glucose of 109, hemoglobin A1c 6.3. Today's LDL cholesterol is 128, within normal limit. Today's total cholesterol is 215 and triglycerides are 184, both are elevated. Two sets of troponins are negative. Today's hemoglobin, hematocrit, white count, and platelet count are within normal limit. Venous Doppler of the lower extremities, no evidence of DVT. TSH level is within normal limit. ASSESSMENT: 1. New onset congestive heart failure exacerbation. 2. Hyperlipidemia. 3. Coronary artery disease with history of left anterior descending stenting in the past. 4. History of liver and kidney transplant. 5. Diabetes mellitus. RECOMMENDATIONS: Continue aspirin 81 mg once a day, Crestor at 5 mg once a day, therapeutic subcutaneous Lovenox at 60 mg once a day, Norvasc at 10 mg once a day, Prograf at 0.5 mg twice a day, labetalol at 100 mg twice a day, may discontinue Tylenol. I ordered chest CT angio once cleared by [facility] consultant [employer]. Walter Cook MD
[2018-05-05 00:12] VITALS: PULSE 72
== END 2018-05-04 20:28 | disposition left against medical advice (07) | DRG 308 ==
LOC: C.ER 09:21 → C.6T 13:26 → C.9E 14:08 → C.6T 16:50
PROVIDERS: ADMIT Hospitalist; ATTEND Hospitalist
DX: I48.91 Unspecified atrial fibrillation (principal); N18.6 End stage renal disease; I13.2 Hypertensive heart and chronic kidney disease with heart failure and with stage 5 chronic kidney disease, or end stage renal disease; Z94.0 Kidney transplant status; Z94.4 Liver transplant status; E78.5 Hyperlipidemia, unspecified; I25.10 Atherosclerotic heart disease of native coronary artery without angina pectoris; E11.22 Type 2 diabetes mellitus with diabetic chronic kidney disease; I50.9 Heart failure, unspecified; M81.0 Age-related osteoporosis without current pathological fracture; M06.9 Rheumatoid arthritis, unspecified; Z95.5 Presence of coronary angioplasty implant and graft; Z79.4 Long term (current) use of insulin

== ENCOUNTER 2018-05-28 07:06 | Emergency (ER) | payer MEDICARE ==
[2018-05-28 07:06] VITALS: BMI 27.3
[2018-05-28 07:15] VITALS: RESP 16; O2SAT 98
--- NOTE | 2018-05-28 07:57 | C.PDOC ---
History Of Present Illness 77 years old female with Past surgical history of liver and kidney transplant (25 years ago) presents to ED for complaints of hitting her head(left-side) this morning. Patient states "I got our of bed fast this morning then I felt dizzy and hit my head." Patient also reports associated bruises on left arm and left knee and ankle pain. Denies LOC or any other physical complaints. Time Seen by Provider: 05/28/18 07:11 Chief Complaint (Nursing): Dizziness/Lightheaded History Per: Patient History/Exam Limitations: no limitations Onset/Duration Of Symptoms: Hrs Current Symptoms Are (Timing): Still Present Activity At Onset Of Symptoms: Had Just Stood up Associated Symptoms Preceding Syncopal Episode: No Predromal Symptoms (Sudden Onset) Seizure Or Post-ictal Symptoms: None Fall Associated With With Symptoms: Yes Severity: Mild Recent travel outside of the [place]: No - Symptoms Of CVA Recent Aspirin Use: Unknown Current Coumadin Use?: Unknown Recent Head Trauma: No Past Medical History Reviewed: Historical Data, Nursing Documentation, Vital Signs Vital Signs: Last Vital Signs Temp 97.9 F 05/28/18 07:10 Pulse 84 05/28/18 07:10 Resp 16 05/28/18 07:10 BP 135/71 05/28/18 07:10 Pulse Ox 98 05/28/18 07:10 - Medical History PMH: Anemia, Anxiety, Arthritis, CAD, Depression, Fractures (Hx left hip Fx), HTN, Osteoporosis, Chronic Kidney Disease, Rheumatoid Arthritis Denies: Seizures, Sexually Transmitted Disease Surgical History: Coronary Stent (x2) Family History: States: Unknown Family Hx - Social History Hx Tobacco Use: No Hx Alcohol Use: No Hx Substance Use: No - Immunization History Hx Tetanus Toxoid Vaccination: No Hx Influenza Vaccination: No Hx Pneumococcal Vaccination: No Review Of Systems Constitutional: Negative for: Fever, Chills Gastrointestinal: Negative for: Nausea, Vomiting, Diarrhea Genitourinary: Negative for: Dysuria Musculoskeletal: Positive for: Other (Left knee and ankle pain ) Skin: Positive for: Bruising (Left arm ) Neurological: Negative for: Weakness, Numbness, Headache Physical Exam - Physical Exam Appears: Well, Non-toxic, No Acute Distress Skin: Normal Color, Warm, Dry, No Rash Head: Atraumatic, Normacephalic Eye(s): bilateral: Normal Inspection, PERRL, EOMI Nose: Normal Oral Mucosa: Moist Neck: Normal ROM, Supple Chest: Symmetrical, No Tenderness Cardiovascular: Rhythm Regular, No Murmur Respiratory: Normal Breath Sounds, No Rales, No Rhonchi, No Wheezing Gastrointestinal/Abdominal: Normal Exam, Bowel Sounds (Active ), Soft, No Tenderness Back: Normal Inspection, No CVA Tenderness Extremity: Normal ROM, Tenderness (Left knee and ankle area) Extremity: Bilateral: Normal Color And Temperature, Normal ROM Pulses: Left Radial: Normal, Right Radial: Normal Neurological/Psych: Oriented x3, Normal Speech, Normal Motor, Normal Sensation, Normal Reflexes, Other (No focal deficits ) Gait: Steady ED Course And Treatment - Laboratory Results Result Diagrams: 05/28/18 08:01 05/28/18 08:01 Lab Interpretation: No Acute Changes ECG: Interpreted By Tx ECG Rhythm: Atrial Fibrillation ECG Interpretation: No Changes From Prior Rate From EC O2 Sat by Pulse Oximetry: 98 (RA) Pulse Ox Interpretation: Normal - Radiology CXR: Interpreted by Tx CXR Interpretation: Yes: No Acute Disease - Other Rad Ankle X-Ray X-Ray: Viewed By Tx, Read By Radiologist Interpretation: Date of service: 05/28/2018. PROCEDURE: Left Ankle Radiographs. HISTORY: trauma. COMPARISON: None available. FINDINGS: BONES: No acute fracture or destructive bony lesion identified. JOINTS: Limited cortical thickening seen at the articular cortex surrounding the mortise compatible degenerative joint disease of the tibiotalar joint and fibulotalar articulation as well. Ankle mortise maintained. Talar dome intact. Lesser degenerative changes seen throughout the midfoot articulations diffusely. SOFT TISSUES: Normal. OTHER FINDINGS: None. IMPRESSION: No acute fracture or dislocation left ankle. Degenerative changes as discussed above. Knee X-Ray X-Ray: Viewed By Tx, Read By Radiologist Interpretation: Date of service: 05/28/2018. PROCEDURE: Left Knee Radiographs. HISTORY: Pain. COMPARISON: Bilateral knees radiographs 11/18/2012. FINDINGS: BONES: No acute fracture or destructive bony lesion identified. Diffuse osteopenia suggests osteoporosis. JOINTS: Joint space narrowing is seen at the medial and patellofemoral articulations with articular cortical sclerosis and limited osteophyte development compatible with advanced osteoarthritis. Prominent soft tissue calcifications seen all 3 joint compartments. JOINT EFFUSION: None. OTHER FINDINGS: None. IMPRESSION: No acute fracture or dislocation left knee. Diffuse osteopenia suggests osteoporosis. Advanced degenerative joint disease identified. CXR X-Ray: Viewed By Me, Read By Radiologist Interpretation: Date of service: 05/28/2018. HISTORY: SOB. COMPARISON: Portable chest 05/03/2018. FINDINGS: LUNGS: No interval acute alveolitis bilaterally. Diminished inspiratory volume is appreciated in the interval however. PLEURA: No significant pleural effusion identified, no pneumothorax apparent. CARDIOVASCULAR: Calcific atherosclerotic changes are seen related to the thoracic aorta. Cardiomegaly is reiterated with mild pulmonary vascular congestion resulting in increased reticular markings. OSSEOUS STRUCTURES: No significant abnormalities. VISUALIZED UPPER ABDOMEN: Normal. OTHER FINDINGS: Prominent right paratracheal soft tissue. IMPRESSION: Mild pulmonary vascular congestion without alveolitis, pleural effusion or pneumothorax bilaterally. Stable cardiomegaly. Chronic right paratracheal soft tissue unchanged. - CT Scan/US Head CT Other Rad Studies (CT/US): Read By Radiologist, Radiology Report Reviewed CT/US Interpretation: Date of service: 05/28/2018. PROCEDURE: CT HEAD WITHOUT CONTRAST. HISTORY: R/O Bleed. COMPARISON: Noncontrast head CT 12/07/2016. TECHNIQUE: Axial computed tomography images were obtained through the head/brain without intravenous contrast. Radiation dose: Total exam DLP = 1050.28 mGy-cm. This CT exam was performed using one or more of the following dose reduction techniques: Automated exposure control, adjustment of the mA and/or kV according to patient size, and/or use of iterative reconstruction technique. FINDINGS: HEMORRHAGE: No intracranial hemorrhage. BRAIN: Good corticomedullary differentiation is seen. Reiterated diffuse cerebral atrophy and chronic microangiopathy. No suspicious extra-axial fluid collection is identified and the midline brain anatomy appears grossly nonfocal as imaged. No mass effect identified. VENTRICLES: Unremarkable. No hydrocephalus. CALVARIUM: Unremarkable. PARANASAL SINUSES: Unremarkable as visualized. No significant inflammatory changes. MASTOID AIR CELLS: Unremarkable as visualized. No inflammatory changes. OTHER FINDINGS: None. IMPRESSION: Stable age-related degenerative changes are appreciated with no apparent acute CT intracranial findings as per standard CT criteria. Follow-up CT or MRI are available if clinically warranted. Cervical Spine CT Other Rad Studies (CT/US): Read By Radiologist, Radiology Report Reviewed CT/US Interpretation: Date of service: 05/28/2018. PROCEDURE: CT Cervical Spine without contrast. HISTORY: neck pain. COMPARISON: None available. TECHNIQUE: Axial computed tomography images were obtained of the cervical spine without the use of intravenous contrast. Coronal and sagittal reformatted images were created and reviewed. Radiation dose: Total exam DLP = 432.16 mGy-cm. This CT exam was performed using one or more of the following dose reduction techniques: Automated exposure control, adjustment of the mA and/or kV according to patient size, and/or use of iterative reconstruction technique. FINDINGS: VERTEBRAE: No fracture. Normal alignment. No destructive bony lesion. DISCS/SPINAL CANAL/NEURAL FORAMINA: No spondylolisthesis. Multilevel degenera tive disease appreciated. At C 4 5, a disc osteophyte complex encroaches ventral nerve roots without causing significant central canal stenosis with minimal similar changes present at C5-6 initially medullary toward the right greater than left at C6-7. PARASPINAL SOFT TISSUES: Unremarkable. OTHER FINDINGS: Incidental note is made of a dominant left internal jugular vein and heterogeneous enhancement at the bilateral thyroid lobes without thyromegaly, potentially reflecting small nodules bilaterally. IMPRESSION: 1. No acute fracture or spondylolisthesis identified. 2. Mild multilevel degenerative spondylosis without significant central canal or neural foraminal stenosis appreciated. 3. Heterogeneous enhancement in the bilateral thyroid lobes without thyromegaly. Progress Note: Treated with tylenol 650 mg PO. Patient ambulating with steady gait, neuro intact. Discharged in stable condition Reassessment Condition: Improved Medical Decision Making Medical Decision Making: Plan: * CT Cervical Spine * CT Head * EKG * Blood work * CXR * Knee X-Ray * Ankle X-Ray * Urinalysis Disposition Counseled Patient/Family Regarding: Studies Performed, Diagnosis, Need For Followup, Rx Given - Disposition Referrals: Wilmer Eric MD [Staff Provider] - Disposition: HOME/ ROUTINE Disposition Time: 11:30 Condition: STABLE Additional Instructions: Follow up with your PMD for further evaluation Return to ED if any increase symptoms Prescriptions: Acetaminophen [Tylenol] 325 mg PO Q6H PRN #20 capsule PRN Reason: Pain, Mild (1-3) Instructions: Vertigo (a Type of Dizziness) Forms: [employer] (Lao) Print Language: UGANDAN - POA Present On Arrival: None - Clinical Impression Clinical Impression: Dizziness - PA / BURNISHER / Resident Statement MD/DO has reviewed & agrees with the documentation as recorded. - Scribe Statement The provider has reviewed the documentation as recorded by the Scribe Daly Gandara All medical record entries made by the Harleyibe were at my direction and personally dictated by me. I have reviewed the chart and agree that the record accurately reflects my personal performance of the history, physical exam, medical decision making, and the department course for this patient. I have also personally directed, reviewed, and agree with the discharge instructions and disposition.
[2018-05-28 08:10] LABS: BASO % 0.8 % (0.0-2.0); EOS # 0.1 K/uL (0.0-0.7); EOS % 2.2 % (0.0-4.0); HEMOGLOBIN 10.7 g/dL (11.0-16.0); LYMPH # 1.2 K/uL (1.0-4.3); LYMPH % 26.3 % (20.0-40.0); MEAN CORPUSCULAR HEMOGLOBIN 26.2 pg (27.0-31.0); MEAN CORPUSCULAR HGB CONC 33.5 g/dL (33.0-37.0); MEAN PLATELET VOLUME 7.8 fL (7.2-11.7); MONO # 0.7 K/uL (0.0-0.8); MONO % 16.4 % (0.0-10.0); NEUT # 2.4 K/uL (1.8-7.0); NEUT % 54.3 % (50.0-75.0); RBC 4.08 Mil/uL (3.80-5.20); RED CELL DISTRIBUTION WIDTH 15.7 % (11.5-14.5); WHITE BLOOD COUNT 4.5 K/uL (4.8-10.8)
[2018-05-28 08:14] LABS: MEAN CELL VOLUME 78.2 fL (81.0-99.0)
[2018-05-28 08:19] LABS: INR 1.5; PROTHROMBIN TIME 16.1 SECONDS (9.7-12.2)
[2018-05-28 08:23] LABS: ALB/GLOB RATIO 1.1 (1.0-2.1); ALBUMIN 3.8 g/dL (3.5-5.0); ALT/SGPT 12 U/L (9-52); AST/SGOT 14 U/L (14-36); BLOOD UREA NITROGEN 16 mg/dL (7-17); CALCIUM 9.6 mg/dl (8.6-10.4); GFR NON-AFRICAN AMERICAN 54
--- NOTE | 2018-05-28 09:01 | RAD ---
Date of service: 05/28/2018 PROCEDURE: Left Ankle Radiographs. HISTORY: trauma COMPARISON: None available. FINDINGS: BONES: No acute fracture or destructive bony lesion identified. JOINTS: Limited cortical thickening seen at the articular cortex surrounding the mortise compatible degenerative joint disease of the tibiotalar joint and fibulotalar articulation as well. Ankle mortise maintained. Talar dome intact. Lesser degenerative changes seen throughout the midfoot articulations diffusely. SOFT TISSUES: Normal. OTHER FINDINGS: None. IMPRESSION: No acute fracture or dislocation left ankle. Degenerative changes as discussed above.
--- NOTE | 2018-05-28 09:02 | RAD ---
Date of service: 05/28/2018 PROCEDURE: Left Knee Radiographs. HISTORY: Pain. COMPARISON: Bilateral knees radiographs 11/18/2012. FINDINGS: BONES: No acute fracture or destructive bony lesion identified. Diffuse osteopenia suggests osteoporosis. JOINTS: Joint space narrowing is seen at the medial and patellofemoral articulations with articular cortical sclerosis and limited osteophyte development compatible with advanced osteoarthritis. Prominent soft tissue calcifications seen all 3 joint compartments. JOINT EFFUSION: None. OTHER FINDINGS: None. IMPRESSION: No acute fracture or dislocation left knee. Diffuse osteopenia suggests osteoporosis. Advanced degenerative joint disease identified.
--- NOTE | 2018-05-28 09:06 | RAD ---
Date of service: 05/28/2018 HISTORY: SOB COMPARISON: Portable chest 05/03/2018. FINDINGS: LUNGS: No interval acute alveolitis bilaterally. Diminished inspiratory volume is appreciated in the interval however. PLEURA: No significant pleural effusion identified, no pneumothorax apparent. CARDIOVASCULAR: Calcific atherosclerotic changes are seen related to the thoracic aorta. Cardiomegaly is reiterated with mild pulmonary vascular congestion resulting in increased reticular markings. OSSEOUS STRUCTURES: No significant abnormalities. VISUALIZED UPPER ABDOMEN: Normal. OTHER FINDINGS: Prominent right paratracheal soft tissue IMPRESSION: Mild pulmonary vascular congestion without alveolitis, pleural effusion or pneumothorax bilaterally. Stable cardiomegaly. Chronic right paratracheal soft tissue unchanged.
--- NOTE | 2018-05-28 10:13 | CT ---
Date of service: 05/28/2018 PROCEDURE: CT HEAD WITHOUT CONTRAST. HISTORY: R/O Bleed COMPARISON: Noncontrast head CT 12/07/2016 TECHNIQUE: Axial computed tomography images were obtained through the head/brain without intravenous contrast. Radiation dose: Total exam DLP = 1050.28 mGy-cm. This CT exam was performed using one or more of the following dose reduction techniques: Automated exposure control, adjustment of the mA and/or kV according to patient size, and/or use of iterative reconstruction technique. FINDINGS: HEMORRHAGE: No intracranial hemorrhage. BRAIN: Good corticomedullary differentiation is seen. Reiterated diffuse cerebral atrophy and chronic microangiopathy. No suspicious extra-axial fluid collection is identified and the midline brain anatomy appears grossly nonfocal as imaged. No mass effect identified. VENTRICLES: Unremarkable. No hydrocephalus. CALVARIUM: Unremarkable. PARANASAL SINUSES: Unremarkable as visualized. No significant inflammatory changes. MASTOID AIR CELLS: Unremarkable as visualized. No inflammatory changes. OTHER FINDINGS: None. IMPRESSION: Stable age-related degenerative changes are appreciated with no apparent acute CT intracranial findings as per standard CT criteria. Follow-up CT or MRI are available if clinically warranted.
[2018-05-28 10:20] LABS: SQUAMOUS EPITHIAL < 1 /hpf (0-5); URINE BILIRUBIN NEGATIVE (NEGATIVE); URINE BLOOD NEGATIVE (NEGATIVE); URINE CLARITY Clear (Clear); URINE COLOR Yellow (YELLOW); URINE GLUCOSE (UA) NORMAL (Normal); URINE LEUKOCYTE ESTERASE TRACE Leu/uL (Negative); URINE PROTEIN 1+ mg/dL (NEGATIVE); URINE UROBILINOGEN NORMAL mg/dL (0.2-1.0)
--- NOTE | 2018-05-28 10:25 | CT ---
Date of service: 05/28/2018 PROCEDURE: CT Cervical Spine without contrast HISTORY: neck pain COMPARISON: None available. TECHNIQUE: Axial computed tomography images were obtained of the cervical spine without the use of intravenous contrast. Coronal and sagittal reformatted images were created and reviewed. Radiation dose: Total exam DLP = 432.16 mGy-cm. This CT exam was performed using one or more of the following dose reduction techniques: Automated exposure control, adjustment of the mA and/or kV according to patient size, and/or use of iterative reconstruction technique. FINDINGS: VERTEBRAE: No fracture. Normal alignment. No destructive bony lesion. DISCS/SPINAL CANAL/NEURAL FORAMINA: No spondylolisthesis. Multilevel degenerative disease appreciated. At C 4 5, a disc osteophyte complex encroaches ventral nerve roots without causing significant central canal stenosis with minimal similar changes present at C5-6 initially medullary toward the right greater than left at C6-7. PARASPINAL SOFT TISSUES: Unremarkable. OTHER FINDINGS: Incidental note is made of a dominant left internal jugular vein and heterogeneous enhancement at the bilateral thyroid lobes without thyromegaly, potentially reflecting small nodules bilaterally. IMPRESSION: 1. No acute fracture or spondylolisthesis identified. 2. Mild multilevel degenerative spondylosis without significant central canal or neural foraminal stenosis appreciated. 3. Heterogeneous enhancement in the bilateral thyroid lobes without thyromegaly.
[2018-05-28 10:39] VITALS: BP 130/70; PULSE 82; TEMP 98.6
--- NOTE | 2018-05-31 15:42 | CARD ---
APPROVED REPORT Date of service: 05/28/2018 EKG Measurement Heart [id number] <Conclusion> Atrial fibrillation with premature ventricular or aberrantly conducted complexes Poor R wave progression Nonspecific ST/T changes Abnormal ECG
== END 2018-05-28 12:00 | disposition home or self-care (01) ==
LOC: C.ER 07:06
DX: R42 Dizziness and giddiness (principal); I25.10 Atherosclerotic heart disease of native coronary artery without angina pectoris; I12.9 Hypertensive chronic kidney disease with stage 1 through stage 4 chronic kidney disease, or unspecified chronic kidney disease; N18.9 Chronic kidney disease, unspecified; Z94.4 Liver transplant status; Z94.0 Kidney transplant status

== ENCOUNTER 2018-06-04 09:21 | Emergency (ER) | payer MEDICARE ==
[2018-06-04 09:21] VITALS: BMI 27.3
--- NOTE | 2018-06-04 09:40 | C.PDOC ---
History Of Present Illness 77 y/o female, with PMHx of Afib on eliquis, HTN, CAD s/p stent, presents to ED for evaluation left sided chest pain that started this morning while at home. Pain is described as "someone punching in her chest". She reports feeling better after she was given Aspirin and Nitro in the ambulance. Pt was seen here recently but had signed AMA. Pt is unsure if she has had prior stress test. Otherwise, denies shortness of breath, or any other associated symptoms at this time. Time Seen by Provider: 06/04/18 09:22 Chief Complaint (Nursing): Chest Pain History Per: Patient History/Exam Limitations: no limitations Past Medical History Reviewed: Historical Data, Nursing Documentation, Vital Signs Vital Signs: Last Vital Signs Temp 98.1 F 06/04/18 09:29 Pulse 85 06/04/18 09:29 Resp 16 06/04/18 09:29 BP 154/98 H 06/04/18 09:29 Pulse Ox 98 06/04/18 09:29 - Medical History PMH: Anemia, Anxiety, Arthritis, Atrial Fibrillation, CAD, Depression, Fractures (Hx left hip Fx), HTN, Osteoporosis, Chronic Kidney Disease, Rheumatoid Arthritis Denies: HIV, Seizures, Sexually Transmitted Disease Surgical History: Coronary Stent (x2) Family History: States: Unknown Family Hx - Social History Hx Tobacco Use: No Hx Alcohol Use: No Hx Substance Use: No - Immunization History Hx Tetanus Toxoid Vaccination: No Hx Influenza Vaccination: No Hx Pneumococcal Vaccination: No Review Of Systems Except As Marked, All Systems Reviewed And Found Negative. Constitutional: Negative for: Fever, Chills Cardiovascular: Positive for: Chest Pain. Negative for: Palpitations Respiratory: Negative for: Cough, Shortness of Breath Physical Exam - Physical Exam Appears: Non-toxic, No Acute Distress Skin: Normal Color, Warm, Dry Head: Atraumatic, Normacephalic Eye(s): bilateral: Normal Inspection Oral Mucosa: Moist Neck: Normal ROM, Supple Chest: Symmetrical, No Tenderness Cardiovascular: Rhythm Regular, No Murmur Respiratory: Normal Breath Sounds, No Rales, No Rhonchi, No Wheezing Gastrointestinal/Abdominal: Soft, No Tenderness Extremity: Normal ROM, No Pedal Edema Neurological/Psych: Oriented x3, Normal Speech ED Course And Treatment - Laboratory Results Result Diagrams: 06/04/18 09:59 06/04/18 09:59 ECG: Interpreted By Me, Viewed By Me ECG Rhythm: Atrial Fibrillation ECG Interpretation: No Acute Changes Interpretation Of ECG: Non-specific ST/T wave changes. Rate From EC (bpm) O2 Sat by Pulse Oximetry: 98 (RA) Pulse Ox Interpretation: Normal Medical Decision Making Medical Decision Making: cp ro acs Plan: Blood work Urinalysis EKG CXR cp ro acs- labs neg. cxr neg. accepte kim hernandez. Disposition - Disposition Disposition: HOSPITALIZED Disposition Time: 11:34 Condition: STABLE - Clinical Impression Clinical Impression: Chest pain - Scribe Statement The provider has reviewed the documentation as recorded by the Scribe KP All medical record entries made by the Scribe were at my direction and personally dictated by me. I have reviewed the chart and agree that the record accurately reflects my personal performance of the history, physical exam, medical decision making, and the department course for this patient. I have also personally directed, reviewed, and agree with the discharge instructions and disposition. Decision To Admit - Pt Status Changed To: Hospital Disposition Of: Observation - . Bed Request Type: Telemetry Admitting Physician: Yoni Hernandez Patient Diagnosis: Chest pain
[2018-06-04 10:07] LABS: URINE BILIRUBIN NEGATIVE (NEGATIVE); URINE BLOOD 1+ (NEGATIVE); URINE CLARITY Clear (Clear); URINE COLOR Straw (YELLOW); URINE GLUCOSE (UA) NORMAL (Normal); URINE LEUKOCYTE ESTERASE NEG Leu/uL (Negative); URINE PROTEIN 2+ mg/dL (NEGATIVE); URINE UROBILINOGEN NORMAL mg/dL (0.2-1.0)
[2018-06-04 10:23] LABS: BASO # 0.1 K/uL (0.0-0.2); EOS # 0.1 K/uL (0.0-0.7); EOS % 1.5 % (0.0-4.0); HEMOGLOBIN 10.9 g/dL (11.0-16.0); LYMPH # 1.2 K/uL (1.0-4.3); LYMPH % 19.7 % (20.0-40.0); MEAN CELL VOLUME 78.2 fL (81.0-99.0); MEAN CORPUSCULAR HEMOGLOBIN 25.7 pg (27.0-31.0); MEAN CORPUSCULAR HGB CONC 32.9 g/dL (33.0-37.0); MEAN PLATELET VOLUME 7.8 fL (7.2-11.7); MONO # 0.7 K/uL (0.0-0.8); MONO % 11.4 % (0.0-10.0); NEUT # 3.9 K/uL (1.8-7.0); NEUT % 66.4 % (50.0-75.0); RBC 4.25 Mil/uL (3.80-5.20); RED CELL DISTRIBUTION WIDTH 15.8 % (11.5-14.5); WHITE BLOOD COUNT 5.9 K/uL (4.8-10.8)
[2018-06-04 10:36] LABS: ALBUMIN 3.8 g/dL (3.5-5.0); ALT/SGPT 16 U/L (9-52); AST/SGOT 16 U/L (14-36); BLOOD UREA NITROGEN 11 mg/dL (7-17); CALCIUM 9.5 mg/dl (8.6-10.4); GFR NON-AFRICAN AMERICAN > 60
[2018-06-04 10:49] LABS: INR 1.4; PROTHROMBIN TIME 15.3 SECONDS (9.7-12.2)
--- NOTE | 2018-06-04 14:45 | RAD ---
Date of service: 06/04/2018 HISTORY: chest pain COMPARISON: None available. FINDINGS: LUNGS: Persistent mild but improved pulmonary venous congestion.. Residual mild alveolar-type infiltrates or atelectasis both lung bases PLEURA: No significant pleural effusion identified, no pneumothorax apparent. CARDIOVASCULAR: Mild aortic atherosclerotic calcification present. Cardiomegaly. No pulmonary vascular congestion. OSSEOUS STRUCTURES: No significant abnormalities. VISUALIZED UPPER ABDOMEN: Normal. OTHER FINDINGS: None. IMPRESSION: Persistent mild but improved pulmonary venous congestion.. Residual mild alveolar-type infiltrates or atelectasis both lung bases.
[2018-06-04 15:47] VITALS: BP 159/85; PULSE 91; RESP 23; TEMP 98.5; O2SAT 95
[2018-06-04 16:39] LABS: CK-MB 0.53 ng/mL (0.0-3.38)
--- NOTE | 2018-06-04 19:14 | CP.PCM.HP ---
Past Patient History - Infectious Disease Hx of Infectious Diseases: None - Tetanus Immunizations Tetanus Immunization: Unknown - Past Medical History & Family History Past Medical History?: Yes - Past Social History Smoking Status: Never Smoked - CARDIAC Hx Atrial Fibrillation: Yes Hx Hypertension: Yes - PULMONARY Hx Tuberculosis: No - NEUROLOGICAL Hx Seizures: No - HEENT Hx HEENT Problems: Yes Other/Comment: Eliseo eye implants - RENAL Hx Chronic Kidney Disease: Yes - ENDOCRINE/METABOLIC Hx Endocrine Disorders: No - HEMATOLOGICAL/ONCOLOGICAL Hx Anemia: Yes Hx Human Immunodeficiency Virus (HIV): No - INTEGUMENTARY Hx Dermatological Problems: No - MUSCULOSKELETAL/RHEUMATOLOGICAL Hx Arthritis: Yes Hx Fractures: Yes (Hx left hip Fx) Hx Osteoporosis: Yes Hx Rheumatoid Arthritis: Yes - GASTROINTESTINAL Hx Gastrointestinal Disorders: Yes Other/Comment: Liver transplant, Kidney transplant. - GENITOURINARY/GYNECOLOGICAL Hx Sexually Transmitted Disorders: No - PSYCHIATRIC Hx Anxiety: Yes Hx Depression: Yes Hx Substance Use: No - SURGICAL HISTORY Hx Coronary Stent: Yes (x2) - ANESTHESIA Hx Anesthesia: Yes Hx Anesthesia Reactions: No Hx Malignant Hyperthermia: No Meds Allergies/Adverse Reactions: Allergies Allergy/AdvReac Type Severity Reaction Status Date / Time iodine Allergy Verified 06/04/18 09:36 Penicillins Allergy Verified 06/04/18 09:36 prednisolone Allergy Verified 06/04/18 09:35 prednisone Allergy Verified 06/04/18 09:35 Results - Vital Signs Recent Vital Signs: Last Vital Signs Temp 98.5 F 06/04/18 15:46 Pulse 91 H 06/04/18 15:46 Resp 23 06/04/18 15:46 BP 159/85 H 06/04/18 15:46 Pulse Ox 95 06/04/18 15:46 - Labs Result Diagrams: 06/04/18 09:59 06/04/18 09:59 Labs: Laboratory Results - last 24 hr 06/04/18 06/04/18 06/04/18 09:59 09:59 09:59 WBC 5.9 RBC 4.25 Hgb 10.9 L Hct 33.2 L MCV 78.2 L MCH 25.7 L MCHC 32.9 L RDW 15.8 H Plt Count 252 MPV 7.8 Neut % (Auto) 66.4 Lymph % (Auto) 19.7 L Hitchcock % (Auto) 11.4 H Eos % (Auto) 1.5 Baso % (Auto) 1.0 Neut # (Auto) 3.9 Lymph # (Auto) 1.2 Hitchcock # (Auto) 0.7 Eos # (Auto) 0.1 Baso # (Auto) 0.1 PT 15.3 H INR 1.4 APTT 36 H Sodium Potassium Chloride Carbon Dioxide Anion Gap BUN Creatinine Est GFR ( Amer) Est GFR (Non-Af Amer) Random Glucose Calcium Total Bilirubin AST ALT Alkaline Phosphatase Total Creatine Kinase CK-MB (Mass) Troponin I Total Protein Albumin Globulin Albumin/Globulin Ratio Urine Color Straw Urine Clarity Clear Urine pH 7.0 Ur Specific Kent 1.005 Urine Protein 2+ H Urine Glucose (UA) Normal Urine Ketones Negative Urine Blood 1+ H Urine Nitrate Negative Urine Bilirubin Negative Urine Urobilinogen Normal Ur Leukocyte Esterase Neg Urine WBC (Auto) < 1 Urine RBC (Auto) < 1 06/04/18 06/04/18 09:59 16:13 WBC RBC Hgb Hct MCV MCH MCHC RDW Plt Count MPV Neut % (Auto) Lymph % (Auto) Hitchcock % (Auto) Eos % (Auto) Baso % (Auto) Neut # (Auto) Lymph # (Auto) Hitchcock # (Auto) Eos # (Auto) Baso # (Auto) PT INR APTT Sodium 138 Potassium 3.9 Chloride 104 Carbon Dioxide 24 Anion Gap 14 BUN 11 Creatinine 0.8 Est GFR ( Amer) > 60 Est GFR (Non-Af Amer) > 60 Random Glucose 117 H Calcium 9.5 Total Bilirubin 0.5 AST 16 ALT 16 Alkaline Phosphatase 91 Total Creatine Kinase 61 CK-MB (Mass) 0.53 Troponin I < 0.0120 < 0.0120 Total Protein 7.6 Albumin 3.8 Globulin 3.9 Albumin/Globulin Ratio 1.0 Urine Color Urine Clarity Urine pH Ur Specific [place] Urine Protein Urine Glucose (UA) Urine Ketones Urine Blood Urine Nitrate Urine Bilirubin Urine Urobilinogen Ur Leukocyte Esterase Urine WBC (Auto) Urine RBC (Auto)
--- NOTE | 2018-06-05 03:27 | CON ---
DATE: 06/04/2018 CARDIOLOGY CONSULT REASON FOR CONSULTATION: Chest pain and recurrent falls. HISTORY OF PRESENT ILLNESS: The patient a 77-year-old female who has a history of combined liver and kidney transplant many years ago, has history of coronary stenting to the LAD many years ago and was recently diagnosed with atrial fibrillation and was placed on Eliquis 2.5 mg twice a day. The patient apparently sustained a fall recently and was taken to [facility] where her daughter lives there, underwent x-rays and was told she has no fracture. However from that fall, the patient has sustained significant left leg ecchymosis. The patient presented at this time because of recurrent fall as well as chest discomfort. The patient did report dizziness before her fall; and there was no reported seizure activity, tongue biting, or urinary incontinence. SOCIAL HISTORY: Nonsmoker, nondrinker. She lives with one of her daughters in [place]. MEDICATIONS: Ambien 5 mg once a day, aspirin 81 mg once a day, Crestor 5 mg once a day, Eliquis 2.5 mg twice a day, Klonopin 0.5 mg twice a day, Norvasc 10 mg once a day, Prograf 0.5 mg twice a day, Trandate 100 mg twice a day. REVIEW OF SYSTEMS: No fever or chills. No nausea or vomiting. PHYSICAL EXAMINATION: GENERAL: The patient is an elderly female who does not appear to be in any distress. VITAL SIGNS: Blood pressure 159/85, heart rate 91, temperature 98.5, respirations 23. HEENT: Normocephalic. CHEST: Clear. HEART: S1, S2 regular. ABDOMEN: Soft. EXTREMITIES: No edema. Ecchymosis on the lateral aspect of the left leg. EKG, atrial fibrillation with nonspecific ST-T wave changes. LABORATORY DATA: SMA-7 is within normal limits except for glucose of 117. One set of troponin is negative. Hemoglobin and hematocrit 10.9 and 33.2. White count and platelet count are within normal limits. Chest x-ray revealed borderline cardiomegaly with prominent bronchovascular markings, tracheal shift to the right was noted. ASSESSMENT: 1. Chronic atrial fibrillation. 2. Chest pain, rule out myocardial infarction. 3. Hypertension. 4. Recurrent falls. 5. History of combined liver and kidney transplant many years ago. RECOMMENDATIONS: Continue Crestor 5 mg once a day, Eliquis 2.5 mg once a day, Norvasc 10 mg once a day, Trandate 100 mg twice a day. Obtain one more set of troponin and repeat 12-lead EKG and schedule the patient for head CT scan without contrast. From my experience, the patient usually signs against medical advice before 24 hours completed for her in the hospital, and the patient was advised to stay until the workup is completely done and records are obtained from her evaluation at site hospital. Walter Cook MD
--- NOTE | 2018-06-05 06:48 | HP ---
CHIEF COMPLAINT: Chest pain. HISTORY OF PRESENT ILLNESS: This is a 77-year-old female with history of coronary artery disease, status post two stents; hypertension; hyperlipidemia; atrial fibrillation, on anticoagulation, novel oral anticoagulants. She is compliant with her diet, medication, and followup. She was recently discharged from [facility] for chest pain against medical advice. The patient came back. She is having substernal chest pain since this morning, nonradiating. This is not associated with diaphoresis or dizziness. She denies any cough, pleurisy, or dyspepsia. She denies any nausea or vomiting. She denies any bloating. She denies any polyuria, polydipsia, or polyphagia. She denies any sneezing, itchy eyes, or itchy nose. She denies any tingling, numbness, or paraesthesia of the extremities. PAST MEDICAL HISTORY: Hypertension, hyperlipidemia, coronary artery disease, atrial fibrillation, two stents. SOCIAL HISTORY: Ex-smoker. Social EtOH user. CURRENT MEDICATIONS AT HOME: She is on Eliquis, Norvasc, tacrolimus, Crestor, labetalol, clonazepam, aspirin, Eliquis, Tylenol, Klonopin, Norvasc, and Ultracet. REVIEW OF SYSTEMS: Chronic renal failure, status post , PHYSICAL EXAMINATION: GENERAL: An elderly female. She is complaining of chest pain and says she is restless, and she is uncooperative. VITAL SIGNS: BP 154/98, pulse 55, respiratory rate 16, and temperature 98.1. SKIN: Senile turgor. No bruises. No purpura. HEENT: Atraumatic and normocephalic. Negative pallor. Negative jaundice. Extraocular movements are intact. NECK: Supple. No JVD. No lymph node. No thyromegaly. No carotid bruit. CHEST WALL: Bilateral symmetrical expansion. LUNGS: Clear. No rales. No rhonchi. CARDIOVASCULAR SYSTEM: S1 and S2 regular. No heave. No thrill. ABDOMEN: Soft and nontender. Bowel sounds are positive. RECTAL: No masses. No bleeding. EXTREMITIES: No clubbing, cyanosis, or edema. Poor peripheral pulses in posterior tibial and dorsalis pedis bilaterally. CENTRAL NERVOUS SYSTEMS: Awake, alert, and oriented x3. Cranial nerves II through XII are normal. Power 5/5 x4. Plantars are downgoing. ASSESSMENT: 1. Chest pain. Rule out myocardial infarction in a patient with coronary artery disease with prior stents with multiple risk factors. 2. Hypertension. 3. Hyperlipidemia. 4. Atrial fibrillation. PLAN: Cardiac enzymes x3, EKG, echocardiogram. Cardiology evaluation with Dr. Cook, who is primary felt hat pouncing operator hand. Yoni Hernandez MD
== END 2018-06-04 17:30 | disposition left against medical advice (07) ==
LOC: C.ER 09:21 → C.9E 10:44 → UNDOADMOB 10:44 → C.5S 17:06 → C.9E 17:06 → UNDODISOB 17:45
DX: I48.2 Chronic atrial fibrillation (principal); R07.9 Chest pain, unspecified; I10 Essential (primary) hypertension; I25.10 Atherosclerotic heart disease of native coronary artery without angina pectoris; Z79.01 Long term (current) use of anticoagulants; Z94.4 Liver transplant status; Z94.0 Kidney transplant status; Z95.5 Presence of coronary angioplasty implant and graft; E78.5 Hyperlipidemia, unspecified; Z87.891 Personal history of nicotine dependence; R29.6 Repeated falls
CPT/HCPCS: 71045; 80053; 81001; 84484; 85025; 85610; 85730; 99285; J7507

== ENCOUNTER 2018-06-27 05:52 | Emergency (ER) | payer MEDICARE ==
[2018-06-27 05:52] VITALS: BMI 27.3
[2018-06-27 06:24] VITALS: TEMP 98.1
--- NOTE | 2018-06-27 06:39 | C.PDOC ---
History Of Present Illness 77 year old female with PMHx of liver and kidney transplant, STENT x2 is brought to the ED by EMS for evaluation. As per EMS family reports patient was missing for a couple of days and was found recently and family wanted her to get checked out. While in the ED patient c/o abdominal pain. Patient initially reports she was with her daughter and started feeling chest pain and her heart racing. Patient is poor historian. Patient denies fever, chills, SOB, rash, injury, fall, trauma, weakness, numbness. PMD : Dr. Eric Area Development Consultant : Dr. Cook Time Seen by Provider: 06/27/18 06:32 Chief Complaint (Nursing): Medical Clearance History Per: Patient, EMS, Family History/Exam Limitations: clinical condition Onset/Duration Of Symptoms: Days Current Symptoms Are (Timing): Still Present Recent travel outside of the [place]: No Additional History Per: Patient, EMS, Family Past Medical History Reviewed: Historical Data, Nursing Documentation, Vital Signs Vital Signs: Last Vital Signs Temp 98.1 F 06/27/18 06:14 Pulse 85 06/27/18 06:14 Resp 20 06/27/18 06:14 BP 119/67 06/27/18 06:14 Pulse Ox 95 06/27/18 06:14 - Medical History PMH: Anemia, Anxiety, Arthritis, Atrial Fibrillation, CAD, Depression, Fractures (Hx left hip Fx), HTN, Osteoporosis, Chronic Kidney Disease, Rheumatoid Arthritis Denies: HIV, Seizures, Sexually Transmitted Disease Surgical History: Coronary Stent (x2) Family History: States: Unknown Family Hx - Social History Hx Tobacco Use: No Hx Alcohol Use: No Hx Substance Use: No - Immunization History Hx Tetanus Toxoid Vaccination: No Hx Influenza Vaccination: No Hx Pneumococcal Vaccination: No Review Of Systems Constitutional: Negative for: Fever, Chills Cardiovascular: Positive for: Chest Pain, Palpitations Respiratory: Negative for: Cough, Shortness of Breath Gastrointestinal: Positive for: Nausea, Vomiting, Abdominal Pain. Negative for: Diarrhea Genitourinary: Negative for: Dysuria, Hematuria Musculoskeletal: Negative for: Back Pain Skin: Negative for: Rash Neurological: Negative for: Weakness, Numbness, Headache, Dizziness Physical Exam - Physical Exam Appears: Non-toxic, No Acute Distress Skin: Normal Color, Warm, Dry Head: Atraumatic, Normacephalic Eye(s): bilateral: Normal Inspection Neck: Normal ROM, Supple Chest: Symmetrical Cardiovascular: Rhythm Regular Respiratory: Normal Breath Sounds, No Rales, No Rhonchi, No Wheezing Gastrointestinal/Abdominal: Soft, Tenderness, Distention, No Guarding, No Rebo und, Other (old surgical scars) Extremity: Normal ROM, No Tenderness, Pedal Edema (1+ bilaterally), Capillary Refill (< 2 seconds) Pulses: Left Dorsalis Pedis: Normal, Right Dorsalis Pedis: Normal Neurological/Psych: Oriented x3, Normal Speech, Normal Cognition Gait: Steady ED Course And Treatment O2 Sat by Pulse Oximetry: 95 (ON RA) Pulse Ox Interpretation: Normal Progress Note: Plan: - EKG. - CXR. - Labs. - Abdomen US. - UA. - IV fluids Disposition - Disposition Disposition Time: 07:06 Condition: STABLE Forms: [facility] (Cymro) - Clinical Impression Clinical Impression: Abdominal pain, Liver transplant recipient - PA / MECHANIC DRIVER / Resident Statement MD/DO has reviewed & agrees with the documentation as recorded. - Scribe Statement The provider has reviewed the documentation as recorded by the Scribe Jourdan Narayanan All medical record entries made by the Scribe were at my direction and personally dictated by me. I have reviewed the chart and agree that the record accurately reflects my personal performance of the history, physical exam, medical decision making, and the department course for this patient. I have also personally directed, reviewed, and agree with the discharge instructions and disposition. Physician Patient Turnover Patient Signed Over To: Tamara Garcia Handoff Comments: pending labs/US
[2018-06-27] MEDS ORDERED: Sodium Chloride 0.9% 1,000 ML IV STA (06:42)
[2018-06-27 07:06] LABS: BASO % 0.7 % (0.0-2.0); EOS # 0.1 K/uL (0.0-0.7); EOS % 1.4 % (0.0-4.0); HEMOGLOBIN 9.7 g/dL (11.0-16.0); LYMPH # 1.2 K/uL (1.0-4.3); LYMPH % 20.4 % (20.0-40.0); MEAN CELL VOLUME 76.8 fL (81.0-99.0); MEAN CORPUSCULAR HEMOGLOBIN 24.5 pg (27.0-31.0); MEAN CORPUSCULAR HGB CONC 31.9 g/dL (33.0-37.0); MEAN PLATELET VOLUME 8.4 fL (7.2-11.7); MONO # 0.7 K/uL (0.0-0.8); MONO % 11.7 % (0.0-10.0); NEUT # 3.8 K/uL (1.8-7.0); NEUT % 65.8 % (50.0-75.0); RBC 3.96 Mil/uL (3.80-5.20); RED CELL DISTRIBUTION WIDTH 16.2 % (11.5-14.5); WHITE BLOOD COUNT 5.8 K/uL (4.8-10.8)
[2018-06-27] MEDS ORDERED: Sodium Chloride 0.9% 1,000 ML ONE (07:07)
[2018-06-27 07:15] LABS: ALB/GLOB RATIO 0.9 (1.0-2.1); ALBUMIN 3.4 g/dL (3.5-5.0); ALT/SGPT 17 U/L (9-52); AMYLASE 55 U/L (30-110); AST/SGOT 22 U/L (14-36); BLOOD UREA NITROGEN 14 mg/dL (7-17); CALCIUM 9.1 mg/dl (8.6-10.4); GFR NON-AFRICAN AMERICAN 54; LIPASE 103 U/L (23-300)
[2018-06-27 07:23] LABS: CK-MB 0.87 ng/mL (0.0-3.38)
[2018-06-27 07:41] LABS: GRANULAR CAST 1 /lpf (0-1); SQUAMOUS EPITHIAL < 1 /hpf (0-5); URINE BACTERIA RARE (<OCC); URINE BILIRUBIN NEGATIVE (NEGATIVE); URINE BLOOD 1+ (NEGATIVE); URINE CLARITY Clear (Clear); URINE COLOR Yellow (YELLOW); URINE GLUCOSE (UA) NORMAL (Normal); URINE LEUKOCYTE ESTERASE NEG Leu/uL (Negative); URINE PROTEIN 3+ mg/dL (NEGATIVE); URINE UROBILINOGEN NORMAL mg/dL (0.2-1.0)
[2018-06-27 08:24] LABS: BARBITURATES, UR NEGATIVE (NEGATIVE); BENZODIAZEPINES, UR NEGATIVE (NEGATIVE); OPIATES, UR NEGATIVE (NEGATIVE); PHENCYCLIDINE, UR NEGATIVE (NEGATIVE)
[2018-06-27 08:33] LABS: INR 1.4; PROTHROMBIN TIME 15.1 SECONDS (9.7-12.2)
[2018-06-27 09:22] VITALS: RESP 18
--- NOTE | 2018-06-27 09:30 | RAD ---
Date of service: 06/27/2018 HISTORY: upper abdominal pain COMPARISON: 06/04/2018 FINDINGS: LUNGS: The lungs are well inflated and clear. PLEURA: No pleural effusions or pneumothorax. CARDIOVASCULAR: The heart is normal in size. No aortic atherosclerotic calcification present. OSSEOUS STRUCTURES: Within normal limits for the patient's age. VISUALIZED UPPER ABDOMEN: Normal. OTHER FINDINGS: None. IMPRESSION: No active pulmonary disease.
--- NOTE | 2018-06-27 09:50 | US ---
Date of service: 06/27/2018 HISTORY: upper abdom. pain, h/o liver and kidney transplant COMPARISON: None. TECHNIQUE: Sonographic evaluation of the abdomen. FINDINGS: LIVER: Measures 13.8 cm. There is diffuse increased echogenicity of the liver parenchyma. No mass. No intrahepatic bile duct dilatation. GALLBLADDER: There are no gallstones, wall thickening or pericholecystic fluid. The sonographic Castro's sign is negative. COMMON BILE DUCT: Measures 2.2 mm. No stones. No dilatation. PANCREAS: Unremarkable as visualized. No mass. No ductal dilatation. RIGHT KIDNEY: Measures 7.2cm. There is diffuse increased cortical echogenicity and cortical thinning. No calculus, mass, or hydronephrosis. There is a 1.7 x 1.5 x 1.5 cm cyst in the interpolar region. LEFT KIDNEY: Small atrophic left kidney measures 4.8cm. There is diffuse increased cortical echogenicity. No calculus, mass, or hydronephrosis. SPLEEN: Normal in size and contour. No mass. AORTA: No aneurysmal dilatation. IVC: Unremarkable. OTHER FINDINGS: There is a left lower quadrant renal transplant which measures 11.5 x 4.8 x 6.3 cm. There is normal cortical echogenicity and cortical thickness without hydronephrosis or nephrolithiasis. IMPRESSION: Post liver transplant. Diffuse increased echogenicity in the liver may reflect hepatic steatosis however parenchymal infectious/ inflammatory etiologies cannot be entirely excluded. Clinical and laboratory correlation is advised. Post left lower quadrant renal transplant, no hydronephrosis or nephrolithiasis.
[2018-06-27 13:43] VITALS: BP 132/72; PULSE 68; O2SAT 97
--- NOTE | 2018-06-28 19:30 | CARD ---
APPROVED REPORT Date of service: 06/27/2018 EKG Measurement Heart [id number] <Conclusion> Atrial fibrillation with premature ventricular or aberrantly conducted complexes Nonspecific ST and T wave abnormality Abnormal ECG
== END 2018-06-27 13:01 | disposition home or self-care (01) ==
LOC: C.ER 05:52
DX: R10.9 Unspecified abdominal pain (principal); Z94.4 Liver transplant status
CPT/HCPCS: 71045; 76700; 80053; 81001; 82150; 82550; 82553; 83605; 83690; 83735; 84484; 85025; 85610; 85730; 93005; 99284; G0480; J7030

== ENCOUNTER 2018-08-28 17:52 | Emergency (ER) | payer MEDICARE ==
[2018-08-28 17:52] VITALS: BMI 27.3
[2018-08-28 18:07] VITALS: TEMP 98; O2SAT 98
--- NOTE | 2018-08-28 18:20 | C.PDOC ---
History Of Present Illness 77 year old female presents to the ED complaining of left upper chest discomfort that began this morning. Pain is digitally and positionally reproducible. Denies any shortness of breath, diaphoresis, nausea, vomiting, diarrhea, fever, chills, abdominal pain, palpitations. Time Seen by Provider: 08/28/18 18:12 Chief Complaint (Nursing): Chest Pain History Per: Patient History/Exam Limitations: no limitations Onset/Duration Of Symptoms: Hrs Current Symptoms Are (Timing): Still Present Associated Symptoms: denies: Nausea, Dyspnea, Diaphoresis Past Medical History Reviewed: Historical Data, Nursing Documentation, Vital Signs Vital Signs: Last Vital Signs Temp 98 F 08/28/18 18:00 Pulse 126 H 08/28/18 18:00 Resp 20 08/28/18 18:00 BP 147/78 08/28/18 18:00 Pulse Ox 98 08/28/18 18:00 - Medical History PMH: Anemia, Anxiety, Arthritis, Atrial Fibrillation, CAD, Depression, Fractures (Hx left hip Fx), HTN, Osteoporosis, Chronic Kidney Disease, Rheumatoid Arthritis Denies: Diabetes, Hepatitis, HIV, Seizures, Sexually Transmitted Disease Surgical History: Coronary Stent (x2) Family History: States: No Known Family Hx - Social History Hx Tobacco Use: No Hx Alcohol Use: No Hx Substance Use: No - Immunization History Hx Tetanus Toxoid Vaccination: No Hx Influenza Vaccination: No Hx Pneumococcal Vaccination: No Review Of Systems Except As Marked, All Systems Reviewed And Found Negative. Constitutional: Negative for: Fever, Chills Cardiovascular: Positive for: Chest Pain. Negative for: Palpitations Respiratory: Negative for: Shortness of Breath Gastrointestinal: Negative for: Nausea, Vomiting, Abdominal Pain, Diarrhea Physical Exam - Physical Exam Appears: Non-toxic, No Acute Distress, Other (green hair ) Skin: Warm, Dry Head: Normacephalic Eye(s): bilateral: Normal Inspection Nose: Normal Oral Mucosa: Moist Chest: Symmetrical, No Deformity, Tenderness (digitally and positionally reproducible left upper pectoralis chest area tenderness, no rash ) Cardiovascular: Rhythm Regular Respiratory: Normal Breath Sounds, No Rales, No Rhonchi, No Wheezing Gastrointestinal/Abdominal: Soft, No Tenderness Extremity: No Pedal Edema Neurological/Psych: Oriented x3, Normal Speech Gait: Steady ED Course And Treatment ECG: Interpreted By Me ECG Rhythm: Atrial Fibrillation ECG Interpretation: Normal Rate From EC O2 Sat by Pulse Oximetry: 98 (RA) Pulse Ox Interpretation: Normal Medical Decision Making Medical Decision Making: Impression: baseline AF, digitally and positinally reproducable chest wall discomfort L upper pectoralis area, no rash, no trauma Plan - EKG - Motrin 400mg PO - UA - Bloodwork - CXR costochondritis Disposition Doctor Will See Patient In The: Office Counseled Patient/Family Regarding: Studies Performed, Diagnosis - Disposition [facility]errals: [facility] [Outside] [facility] [Outside] [facility] [Outside] Walter Cook MD [Staff Provider] - Disposition: HOME/ ROUTINE Disposition Time: 18:20 Condition: GOOD Additional Instructions: ice packs to the L upper chest area 1/2 hour per hour, nothing hot Motrin 400 mg every 6 hours as needed no heavy lifting for 1 week Instructions: Costochondritis Forms: [facility] (Indonesian) - Clinical Impression Clinical Impression: Chest wall discomfort - Scribe Statement The provider has reviewed the documentation as recorded by the Scribe Rosa Rubalcava All medical record entries made by the Scribe were at my direction and personally dictated by me. I have reviewed the chart and agree that the record accurately reflects my personal performance of the history, physical exam, medical decision making, and the department course for this patient. I have also personally directed, reviewed, and agree with the discharge instructions and disposition.
[2018-08-28 18:27] VITALS: BP 127/82; PULSE 100
[2018-08-28 18:35] VITALS: RESP 18
--- NOTE | 2018-08-30 09:53 | CARD ---
APPROVED REPORT Date of service: 08/28/2018 EKG Measurement Heart [id number] <Conclusion> Atrial fibrillation with rapid ventricular response with premature ventricular or aberrantly conducted complexes Possible Inferior infarct, age undetermined ST & T wave abnormality, consider lateral ischemia Abnormal ECG
== END 2018-08-28 18:41 | disposition home or self-care (01) ==
LOC: C.ER 17:52
DX: R07.89 Other chest pain (principal)

== ENCOUNTER 2018-09-17 07:28 | Emergency (ER) | payer MEDICARE ==
[2018-09-17 07:28] VITALS: BMI 27.3
[2018-09-17 07:37] VITALS: BP 149/74; PULSE 82; RESP 18; TEMP 98.2; O2SAT 99
[2018-09-17] MEDS ORDERED: Aspirin 325 mg EC Tablets PO STA (08:04)
[2018-09-17 08:22] LABS: SQUAMOUS EPITHIAL 1 /hpf (0-5); URINE BACTERIA RARE (<OCC); URINE BILIRUBIN NEGATIVE (NEGATIVE); URINE BLOOD NEGATIVE (NEGATIVE); URINE CLARITY Clear (Clear); URINE COLOR Straw (YELLOW); URINE GLUCOSE (UA) NORMAL (Normal); URINE LEUKOCYTE ESTERASE NEG Leu/uL (Negative); URINE PROTEIN 2+ mg/dL (NEGATIVE); URINE UROBILINOGEN NORMAL mg/dL (0.2-1.0)
[2018-09-17 08:24] LABS: BASO % 0.8 % (0.0-2.0); EOS # 0.1 K/uL (0.0-0.7); EOS % 1.2 % (0.0-4.0); HEMOGLOBIN 10.7 g/dL (11.0-16.0); LYMPH # 1.3 K/uL (1.0-4.3); LYMPH % 21.6 % (20.0-40.0); MEAN CORPUSCULAR HEMOGLOBIN 23.7 pg (27.0-31.0); MEAN CORPUSCULAR HGB CONC 31.7 g/dL (33.0-37.0); MEAN PLATELET VOLUME 7.6 fL (7.2-11.7); MONO # 0.6 K/uL (0.0-0.8); MONO % 10.9 % (0.0-10.0); NEUT # 3.8 K/uL (1.8-7.0); NEUT % 65.5 % (50.0-75.0); RBC 4.5 Mil/uL (3.80-5.20); RED CELL DISTRIBUTION WIDTH 19.7 % (11.5-14.5); WHITE BLOOD COUNT 5.8 K/uL (4.8-10.8)
[2018-09-17 08:28] LABS: INR 1.5; MEAN CELL VOLUME 74.7 fL (81.0-99.0); PROTHROMBIN TIME 16.3 SECONDS (9.7-12.2)
[2018-09-17 08:39] LABS: ALB/GLOB RATIO 0.9 (1.0-2.1); ALBUMIN 3.7 g/dL (3.5-5.0); AST/SGOT 19 U/L (14-36); BLOOD UREA NITROGEN 21 mg/dL (7-17); CALCIUM 9.7 mg/dl (8.6-10.4); GFR NON-AFRICAN AMERICAN > 60
[2018-09-17 08:43] LABS: ALT/SGPT < 6 U/L (9-52)
[2018-09-17 08:44] LABS: B-TYPE NATRIURETIC PEPTIDE 1720 pg/mL (0-900)
--- NOTE | 2018-09-17 08:46 | C.PDOC ---
Chief Complaint (Nursing): Chest Pain Past Medical History Vital Signs: Last Vital Signs Temp 98.2 F 09/17/18 07:34 Pulse 82 09/17/18 07:34 Resp 18 09/17/18 07:34 BP 149/74 09/17/18 07:34 Pulse Ox 99 09/17/18 07:34 - Medical History PMH: Anemia, Anxiety, Arthritis, Atrial Fibrillation, CAD, Depression, Fractures (Hx left hip Fx), HTN, Osteoporosis, Chronic Kidney Disease, Rheumatoid Arthritis Denies: Diabetes, Hepatitis, HIV, Seizures, Sexually Transmitted Disease Surgical History: Coronary Stent (x2) Family History: States: Unknown Family Hx - Social History Hx Tobacco Use: No Hx Alcohol Use: No Hx Substance Use: No - Immunization History Hx Tetanus Toxoid Vaccination: No Hx Influenza Vaccination: No Hx Pneumococcal Vaccination: No ED Course And Treatment - Laboratory Results Result Diagrams: 09/17/18 08:11 09/17/18 08:11 Lab Results: PT 16.3 SECONDS (9.7-12.2) H 09/17/18 08:11 INR 1.5 09/17/18 08:11 APTT 40 SECONDS (21-34) H 09/17/18 08:11 Troponin I < 0.0120 ng/mL (0.00-0.120) 09/17/18 08:11 NT-Pro-B Natriuret Pep 1720 pg/mL (0-900) H 09/17/18 08:11 Total Bilirubin 0.5 mg/dL (0.2-1.3) 09/17/18 08:11 AST 19 U/L (14-36) 09/17/18 08:11 ALT < 6 U/L (9-52) L D 09/17/18 08:11 Alkaline Phosphatase 106 U/L (38-126) 09/17/18 08:11 Total Protein 7.7 g/dL (6.3-8.3) 09/17/18 08:11 Albumin 3.7 g/dL (3.5-5.0) 09/17/18 08:11 Globulin 4.1 gm/dL (2.2-3.9) H 09/17/18 08:11 Albumin/Globulin Ratio 0.9 (1.0-2.1) L 09/17/18 08:11 Urine Color Straw (YELLOW) 09/17/18 08:11 Urine Clarity Clear (Clear) 09/17/18 08:11 Urine pH 7.0 (5.0-8.0) 09/17/18 08:11 Ur Specific [place]ran[place] 1.009 (1.003-1.030) 09/17/18 08:11 Urine Protein 2+ mg/dL (NEGATIVE) H 09/17/18 08:11 Urine Glucose (UA) Normal mg/dL (Normal) 09/17/18 08:11 Urine Ketones Negative mg/dL (NEGATIVE) 09/17/18 08:11 Urine Blood Negative (NEGATIVE) 09/17/18 08:11 Urine Nitrate Negative (NEGATIVE) 09/17/18 08:11 Urine Bilirubin Negative (NEGATIVE) 09/17/18 08:11 Urine Urobilinogen Normal mg/dL (0.2-1.0) 09/17/18 08:11 Ur Leukocyte Esterase Neg John/uL (Negative) 09/17/18 08:11 Urine WBC (Auto) 1 /hpf (0-5) 09/17/18 08:11 Urine RBC (Auto) 1 /hpf (0-3) 09/17/18 08:11 Ur Squamous Epith Cells 1 /hpf (0-5) 09/17/18 08:11 Urine Bacteria Rare (<OCC) 09/17/18 08:11 O2 Sat by Pulse Oximetry: 99 Disposition - Disposition
--- NOTE | 2018-09-17 08:49 | C.PDOC ---
History Of Present Illness 78 year old female with a history of CAD s/p stent, Afib, HTN, Anxiety, presents to the ED for medical evaluation of left sided chest pain associated with dizziness and nausea that started 5am today. She rates the pain 5/10. She de nies any radiation to arm or back. Pain is described as sharp. The patient describes the dizziness as if I was drunk. Reports she is compliant with medications. Denies fever, chills, vomiting, diarrhea, diaphoresis, cough, sick contact, and any other associated symptoms. Chief Complaint (Nursing): Chest Pain History Per: Patient History/Exam Limitations: no limitations Onset/Duration Of Symptoms: Hrs Current Symptoms Are (Timing): Still Present Pain Scale Rating Of: 5 Recent travel outside of the [place]: No Past Medical History Reviewed: Historical Data, Nursing Documentation, Vital Signs Vital Signs: Last Vital Signs Temp 98.2 F 09/17/18 07:34 Pulse 82 09/17/18 07:34 Resp 18 09/17/18 07:34 BP 149/74 09/17/18 07:34 Pulse Ox 99 09/17/18 07:34 - Medical History PMH: Anemia, Anxiety, Arthritis, Atrial Fibrillation, CAD, Depression, Fractures (Hx left hip Fx), HTN, Osteoporosis, Chronic Kidney Disease, Rheumatoid Arthritis Denies: Diabetes, Hepatitis, HIV, Seizures, Sexually Transmitted Disease Surgical History: Coronary Stent (x2) Family History: States: Unknown Family Hx - Social History Hx Tobacco Use: No Hx Alcohol Use: No Hx Substance Use: No - Immunization History Hx Tetanus Toxoid Vaccination: No Hx Influenza Vaccination: No Hx Pneumococcal Vaccination: No Review Of Systems Except As Marked, All Systems Reviewed And Found Negative. Constitutional: Negative for: Fever, Chills, Sweats, Weakness, Other ((-) sick contact. ) Cardiovascular: Positive for: Chest Pain (left-sided. ) Respiratory: Negative for: Cough Gastrointestinal: Positive for: Nausea. Negative for: Vomiting, Abdominal Pain, Diarrhea Musculoskeletal: Negative for: Neck Pain, Arm Pain, Back Pain Skin: Negative for: Other ((-) diaphoresis.) Neurological: Positive for: Dizziness. Negative for: Headache Physical Exam - Physical Exam Appears: Non-toxic, No Acute Distress Skin: Normal Color, Warm, Dry Head: Atraumatic, Normacephalic Eye(s): bilateral: Normal Inspection Oral Mucosa: Moist Neck: Normal ROM, Supple Chest: Symmetrical, No Deformity Cardiovascular: Rhythm Irregular Respiratory: Normal Breath Sounds, No Rales, No Rhonchi, No Wheezing Gastrointestinal/Abdominal: Normal Exam, Soft, No Tenderness Extremity: Bilateral: Atraumatic, Normal Color And Temperature, Normal ROM Neurological/Psych: Oriented x3, Normal Speech, Normal Cognition, Normal Sensation ED Course And Treatment - Laboratory Results Result Diagrams: 09/17/18 08:11 09/17/18 08:11 Lab Results: PT 16.3 SECONDS (9.7-12.2) H 09/17/18 08:11 INR 1.5 09/17/18 08:11 APTT 40 SECONDS (21-34) H 09/17/18 08:11 Total Bilirubin 0.5 mg/dL (0.2-1.3) 09/17/18 08:11 AST 19 U/L (14-36) 09/17/18 08:11 Alkaline Phosphatase 106 U/L (38-126) 09/17/18 08:11 Total Protein 7.7 g/dL (6.3-8.3) 09/17/18 08:11 Albumin 3.7 g/dL (3.5-5.0) 09/17/18 08:11 Globulin 4.1 gm/dL (2.2-3.9) H 09/17/18 08:11 Albumin/Globulin Ratio 0.9 (1.0-2.1) L 09/17/18 08:11 Urine Color Straw (YELLOW) 09/17/18 08:11 Urine Clarity Clear (Clear) 09/17/18 08:11 Urine pH 7.0 (5.0-8.0) 09/17/18 08:11 Ur Specific [place] 1.009 (1.003-1.030) 09/17/18 08:11 Urine Protein 2+ mg/dL (NEGATIVE) H 09/17/18 08:11 Urine Glucose (UA) Normal mg/dL (Normal) 09/17/18 08:11 Urine Ketones Negative mg/dL (NEGATIVE) 09/17/18 08:11 Urine Blood Negative (NEGATIVE) 09/17/18 08:11 Urine Nitrate Negative (NEGATIVE) 09/17/18 08:11 Urine Bilirubin Negative (NEGATIVE) 09/17/18 08:11 Urine Urobilinogen Normal mg/dL (0.2-1.0) 09/17/18 08:11 Ur Leukocyte Esterase Neg John/uL (Negative) 09/17/18 08:11 Urine WBC (Auto) 1 /hpf (0-5) 09/17/18 08:11 Urine RBC (Auto) 1 /hpf (0-3) 09/17/18 08:11 Ur Squamous Epith Cells 1 /hpf (0-5) 09/17/18 08:11 Urine Bacteria Rare (<OCC) 09/17/18 08:11 ECG: Interpreted By Me, Viewed By Me ECG Rhythm: Atrial Fibrillation Rate From EC O2 Sat by Pulse Oximetry: 99 (RA) Pulse Ox Interpretation: Normal Medical Decision Making Medical Decision Making: Initial Plan: -EKG -Labs -CXR -Urinalysis -initially d/w patient that admission for observation is warranted in light of her history of AFib and current symptoms Progress/Update: As Per RN, patient wanted IV removed and eloped prior to my reassessment Disposition - Disposition Disposition: ELOPEMENT - ER ONLY Disposition Time: 09:05 Condition: UNKNOWN Forms: [facility] (Italian) - Clinical Impression Clinical Impression: Chest pain - PA / MARINE DRAFTER / Resident Statement MD/DO has reviewed & agrees with the documentation as recorded. - Scribe Statement The provider has reviewed the documentation as recorded by the Scribe (Chikis Brown) All medical record entries made by the Scribe were at my direction and personally dictated by me. I have reviewed the chart and agree that the record accurately reflects my personal performance of the history, physical exam, medical decision making, and the department course for this patient. I have also personally directed, reviewed, and agree with the discharge instructions and disposition.
--- NOTE | 2018-09-17 15:03 | RAD ---
Date of service: 09/17/2018 HISTORY: chest pain COMPARISON: 06/27/2018 TECHNIQUE: Chest PA and lateral FINDINGS: LUNGS: No active pulmonary disease. PLEURA: No significant pleural effusion identified. No pneumothorax apparent. CARDIOVASCULAR: There is atherosclerotic calcification of the thoracic aortic arch. Normal cardiac size. No pulmonary vascular congestion. OSSEOUS STRUCTURES: No significant abnormalities. VISUALIZED UPPER ABDOMEN: Normal. OTHER FINDINGS: None. IMPRESSION: No active disease.
--- NOTE | 2018-09-20 19:49 | CARD ---
APPROVED REPORT Date of service: 09/17/2018 EKG Measurement Heart [id number] <Conclusion> Atrial fibrillation with premature ventricular or aberrantly conducted complexes Abnormal ECG
== END 2018-09-17 09:29 | disposition left against medical advice (07) ==
LOC: C.ER 07:28
DX: R07.9 Chest pain, unspecified (principal); I12.9 Hypertensive chronic kidney disease with stage 1 through stage 4 chronic kidney disease, or unspecified chronic kidney disease; I25.10 Atherosclerotic heart disease of native coronary artery without angina pectoris; I48.91 Unspecified atrial fibrillation; N18.9 Chronic kidney disease, unspecified; Z95.5 Presence of coronary angioplasty implant and graft

== ENCOUNTER 2018-09-23 07:44 | Emergency (ER) | payer MEDICARE ==
[2018-09-23 07:54] VITALS: BMI 24.4
[2018-09-23 07:55] VITALS: RESP 18; TEMP 97.4
--- NOTE | 2018-09-23 08:25 | RAD ---
Date of service: 09/23/2018 PROCEDURE: CHEST RADIOGRAPH, 1 VIEW HISTORY: SOB COMPARISON: 09/17/2018. FINDINGS: LUNGS: There is mild pulmonary venous congestion. No focal consolidation. PLEURA: No pneumothorax or pleural effusion. CARDIOVASCULAR: The heart is normal in size. No aortic atherosclerotic calcifications present. OSSEOUS STRUCTURES: Within normal limits for the patient's age. VISUALIZED UPPER ABDOMEN: Normal. OTHER FINDINGS: None. IMPRESSION: No active pulmonary disease. Mild pulmonary venous congestion.
[2018-09-23 08:47] LABS: BASO # 0.1 K/uL (0.0-0.2); BASO % 1.2 % (0.0-2.0); EOS # 0.1 K/uL (0.0-0.7); EOS % 1.4 % (0.0-4.0); LYMPH # 1.6 K/uL (1.0-4.3); LYMPH % 23.9 % (20.0-40.0); MEAN CELL VOLUME 74.6 fL (81.0-99.0); MEAN CORPUSCULAR HEMOGLOBIN 23.4 pg (27.0-31.0); MEAN CORPUSCULAR HGB CONC 31.4 g/dL (33.0-37.0); MEAN PLATELET VOLUME 7.7 fL (7.2-11.7); MONO # 0.8 K/uL (0.0-0.8); MONO % 11.5 % (0.0-10.0); NEUT # 4.2 K/uL (1.8-7.0); RBC 4.28 Mil/uL (3.80-5.20); RED CELL DISTRIBUTION WIDTH 19.4 % (11.5-14.5); WHITE BLOOD COUNT 6.8 K/uL (4.8-10.8)
[2018-09-23 09:04] LABS: ALB/GLOB RATIO 0.9 (1.0-2.1); ALBUMIN 3.3 g/dL (3.5-5.0); ALT/SGPT 11 U/L (9-52); AST/SGOT 18 U/L (14-36); BLOOD UREA NITROGEN 18 mg/dL (7-17); CALCIUM 9.3 mg/dl (8.6-10.4); GFR NON-AFRICAN AMERICAN > 60
[2018-09-23 09:14] LABS: B-TYPE NATRIURETIC PEPTIDE 1660 pg/mL (0-900)
--- NOTE | 2018-09-23 09:56 | C.PDOC ---
History Of Present Illness 78 y/o with a PMHx of A Fib, CAD, and 2x stents, states today she awoke panicked after noticing her daughter was gone. She then began to feel sob and her chest hurt. No associated nausea, vomiting, or dizziness. Admits mild discomfort to chest area, improved on arrival though ongoing. Otherwise patient denies any fever, productive cough, abdominal pain, numbness, weakness, or leg pain or swelling. Time Seen by Provider: 09/23/18 08:08 Chief Complaint (Nursing): Medical Clearance History Per: Patient History/Exam Limitations: no limitations Onset/Duration Of Symptoms: Hrs Current Symptoms Are (Timing): Still Present Initiating Event: Emotionaly Upset Associated Symptoms: Chest Pain. denies: Sweating, Productive Cough, Leg/Calf Pain Past Medical History Reviewed: Historical Data, Nursing Documentation, Vital Signs Vital Signs: Last Vital Signs Temp 97.4 F L 09/23/18 07:52 Pulse 103 H 09/23/18 07:52 Resp 18 09/23/18 07:52 BP 150/93 H 09/23/18 07:52 Pulse Ox 99 09/23/18 07:52 - Medical History PMH: Anemia, Anxiety, Arthritis, Atrial Fibrillation, CAD, Depression, Fractures (Hx left hip Fx), HTN, Osteoporosis, Chronic Kidney Disease, Rheumatoid Arthritis Denies: Diabetes, Hepatitis, HIV, Seizures, Sexually Transmitted Disease Surgical History: Coronary Stent (x2) Family History: States: Unknown Family Hx - Social History Hx Tobacco Use: No Hx Alcohol Use: No Hx Substance Use: No - Immunization History Hx Tetanus Toxoid Vaccination: No Hx Influenza Vaccination: No Hx Pneumococcal Vaccination: No Review Of Systems Except As Marked, All Systems Reviewed And Found Negative. Cardiovascular: Positive for: Chest Pain Respiratory: Positive for: Shortness of Breath Physical Exam - Physical Exam Appears: Non-toxic, No Acute Distress Skin: Warm, Dry, No Diaphoretic Head: Atraumatic, Normacephalic Eye(s): bilateral: Normal Inspection, PERRL, EOMI Neck: Normal ROM Chest: Symmetrical Cardiovascular: Rhythm Irregular (Irregularly Irregular), Other (Regular rate) Respiratory: Normal Breath Sounds, No Rales, No Rhonchi, No Wheezing Gastrointestinal/Abdominal: Soft, No Tenderness, No Distention Extremity: Bilateral: Atraumatic, Normal Color And Temperature, Normal ROM Pulses: Left Radial: Normal, Right Radial: Normal Neurological/Psych: Oriented x3, Normal Speech ED Course And Treatment - Laboratory Results Result Diagrams: 09/23/18 08:43 09/23/18 08:43 Lab Results: Troponin I < 0.0120 ng/mL (0.00-0.120) 09/23/18 08:43 NT-Pro-B Natriuret Pep 1660 pg/mL (0-900) H 09/23/18 08:43 Total Bilirubin 0.4 mg/dL (0.2-1.3) 09/23/18 08:43 AST 18 U/L (14-36) 09/23/18 08:43 ALT 11 U/L (9-52) 09/23/18 08:43 Alkaline Phosphatase 109 U/L (38-126) 09/23/18 08:43 Total Protein 6.9 g/dL (6.3-8.3) 09/23/18 08:43 Albumin 3.3 g/dL (3.5-5.0) L 09/23/18 08:43 Globulin 3.6 gm/dL (2.2-3.9) 09/23/18 08:43 Albumin/Globulin Ratio 0.9 (1.0-2.1) L 09/23/18 08:43 ECG: Interpreted By Me ECG Rhythm: Atrial Fibrillation Interpretation Of ECG: poor R wave progression, nonspecific T wave changes Rate From EC O2 Sat by Pulse Oximetry: 99 (RA) Pulse Ox Interpretation: Normal - Other Rad CXR X-Ray: Read By Radiologist Interpretation: Accession No. : [id number]. Patient Name / ID : ALFRED PALMA / [id number]. Exam Date : 09/23/2018 08:12:29 ( Approved ). Study Comment : Sex / Age : F / 78Y. Creator : meenakshi moore. Dictator : Michelle Nicolas MD. Gas Appliance Mechanic : Warp Spinner : Michelle Nicolas MD. Approver2 : Report Date : 09/23/2018 08:19:21. My Comment : . Date of service: 09/23/2018. PROCEDURE: CHEST RADIOGRAPH, 1 VIEW. HISTORY: SOB. COMPARISON: 09/17/2018. FINDINGS: LUNGS: There is mild pulmonary venous congestion. No focal consolidation. PLEURA: No pneumothorax or pleural effusion. CARDIOVASCULAR: The heart is normal in size. No aortic atherosclerotic calcifications present. OSSEOUS STRUCTURES: Within normal limits for the patient's age. VISUALIZED UPPER ABDOMEN: Normal. OTHER FINDINGS: None. IMPRESSION: No active pulmonary disease. Mild pulmonary venous congestion. Against Medical Advice - AMA Patient Left Against Medical Advice: The patient declines admission to the hospital and wishes to leave the Emergency Department. This action is against my medical advice. This decision was made with informed refusal. The patient was told that admission to the hospital is necessary. Explanation of the reasons why were discussed. The risks of leaving were explained to the patient and include, but are not limited to, worsening of known or currently unknown conditions, permanent disability and from undiagnosed or untreated conditions. The patient has the capacity to make this informed decision and understands my explanation of the current medical problem and risks of leaving. The patient voluntarily accepts these risks and signed an AMA form documenting our conversation. The patient was given the opportunity to ask questions and reconsider. The jose raul ent was encouraged to return to the Emergency Department at any time for further care. Medical Decision Making Medical Decision Making: Impression: Chest Pain Initial Plan: - EKG - CXR - Labs w/ cardiac enzymes - 81 mg PO Aspirin - Reassess Progress: Trop negative. BNP mildly elevated, 1660. Cardiomegaly with mild pulmonary venous congestion on CXR. 9:[address] Ornelas, awaiting call back 10:25 Still awaiting call back. Second page to Dr. Ornelas 10:28 Spoke w/ Dr. Ornelas, will admit to medicine. Case discussed w/ Dr. Guerra, who accepts patient to service. 11:35 Pt admitted 11:48 After being admitted, patient now states she needs to leave. Discussed risks vs benefits. Patient chooses to sign out AMA. Admission canceled. Disposition Discussed With : Jason Ryder Counseled Patient/Family Regarding: Studies Performed, Diagnosis - Disposition Disposition: AGAINST MEDICAL ADVICE Disposition Time: 12:01 Condition: FAIR Forms: [facility] (Icelandic) - Clinical Impression Clinical Impression: Chest pain, CHF (congestive heart failure) - Scribe Statement The provider has reviewed the documentation as recorded by the Scribe Mony Wade Provider Attestation: All medical record entries made by the Scribe were at my direction and personally dictated by me. I have reviewed the chart and agree that the record accurately reflects my personal performance of the history, physical exam, medical decision making, and the department course for this patient. I have also personally directed, reviewed, and agree with the discharge instructions and disposition.
[2018-09-23 11:29] VITALS: BP 153/89; PULSE 85
[2018-09-23 11:52] VITALS: O2SAT 99
--- NOTE | 2018-09-26 12:56 | CARD ---
APPROVED REPORT Date of service: 09/23/2018 EKG Measurement Heart [id number] <Conclusion> Atrial fibrillation with a competing junctional pacemaker Cannot rule out Anterior infarct, age undetermined Abnormal ECG
== END 2018-09-23 12:00 | disposition left against medical advice (07) ==
LOC: C.ER 07:44 → C.5S 10:56 → UNDOADMOB 10:56 → C.ER 12:00 → C.5S 14:19 → C.9E 14:19
DX: R07.9 Chest pain, unspecified (principal); I50.9 Heart failure, unspecified; I48.91 Unspecified atrial fibrillation; I25.10 Atherosclerotic heart disease of native coronary artery without angina pectoris; M06.9 Rheumatoid arthritis, unspecified; N18.9 Chronic kidney disease, unspecified; I12.9 Hypertensive chronic kidney disease with stage 1 through stage 4 chronic kidney disease, or unspecified chronic kidney disease; M81.0 Age-related osteoporosis without current pathological fracture
CPT/HCPCS: 71045; 80053; 83880; 84484; 85025; 93005; 96374; 99284; J1940

== ENCOUNTER 2018-09-25 12:09 | Emergency (ER) | payer MEDICARE ==
[2018-09-25 12:09] VITALS: BMI 27.3
[2018-09-25 12:18] VITALS: RESP 20; TEMP 98.3; O2SAT 98
[2018-09-25] MEDS ORDERED: Aspirin 325 mg EC Tablets PO STA (12:36)
[2018-09-25] MEDS ORDERED: Aspirin 325 mg EC Tablets PO ONE (12:56)
[2018-09-25 13:05] LABS: BASO # 0.1 K/uL (0.0-0.2); BASO % 1.3 % (0.0-2.0); EOS # 0.1 K/uL (0.0-0.7); LYMPH # 1.3 K/uL (1.0-4.3); LYMPH % 23.4 % (20.0-40.0); MEAN CELL VOLUME 74.6 fL (81.0-99.0); MEAN CORPUSCULAR HEMOGLOBIN 23.4 pg (27.0-31.0); MEAN CORPUSCULAR HGB CONC 31.3 g/dL (33.0-37.0); MONO # 0.5 K/uL (0.0-0.8); MONO % 8.4 % (0.0-10.0); NEUT # 3.6 K/uL (1.8-7.0); NEUT % 65.9 % (50.0-75.0); NRBC % 0.1 % (0.0-2.0); RBC 4.69 Mil/uL (3.80-5.20); RED CELL DISTRIBUTION WIDTH 19.5 % (11.5-14.5); WHITE BLOOD COUNT 5.4 K/uL (4.8-10.8)
--- NOTE | 2018-09-25 13:38 | C.PDOC ---
History Of Present Illness 78 year old female presents to ED with complaint of mid-sternal chest pain that began this morning. Patient has a history of CAD with stents. Patient was at [facility] ED 3 days ago and discharged. She describes the pain as intermittent and full. Patient denies shortness of breathe and palpitations. Time Seen by Provider: 09/25/18 12:35 Chief Complaint (Nursing): Chest Pain History Per: Patient History/Exam Limitations: no limitations Onset/Duration Of Symptoms: Days (1), Intermittent Episodes Current Symptoms Are (Timing): Still Present Quality: "Pain", Other (Full) Associated Symptoms: denies: Nausea, Dyspnea Modifying Factors: None Exacerbating Factors: None Alleviating Factors: None Recent travel outside of the [place]: No Additional History Per: Patient Past Medical History Reviewed: Historical Data, Nursing Documentation, Vital Signs Vital Signs: Last Vital Signs Temp 98.3 F 09/25/18 12:14 Pulse 80 09/25/18 12:25 Resp 20 09/25/18 12:14 BP 141/83 09/25/18 12:25 Pulse Ox 98 09/25/18 12:14 - Medical History PMH: Anemia, Anxiety, Arthritis, Atrial Fibrillation, CAD, Depression, Fractures (Hx left hip Fx), HTN, Osteoporosis, Chronic Kidney Disease, Rheumatoid Arthritis Denies: Diabetes, Hepatitis, HIV, Seizures, Sexually Transmitted Disease Surgical History: Coronary Stent (x2) Family History: States: Unknown Family Hx - Social History Hx Tobacco Use: No Hx Alcohol Use: No Hx Substance Use: No - Immunization History Hx Tetanus Toxoid Vaccination: No Hx Influenza Vaccination: No Hx Pneumococcal Vaccination: No Review Of Systems Except As Marked, All Systems Reviewed And Found Negative. Constitutional: Negative for: Fever, Chills, Weakness Cardiovascular: Positive for: Chest Pain (mid-sternal). Negative for: Palpitations Respiratory: Negative for: Shortness of Breath Gastrointestinal: Negative for: Nausea, Vomiting Neurological: Negative for: Weakness, Numbness, Dizziness Physical Exam - Physical Exam Appears: Well, Non-toxic, No Acute Distress Skin: Normal Color, Warm, Dry Head: Atraumatic, Normacephalic Neck: Normal ROM, Supple Chest: Symmetrical, No Deformity Cardiovascular: Rhythm Regular, No Murmur Respiratory: No Accessory Muscle Use Gastrointestinal/Abdominal: Soft, No Tenderness Neurological/Psych: Oriented x3, Normal Speech, Normal Cognition ED Course And Treatment - Laboratory Results Result Diagrams: 09/25/18 12:59 09/25/18 13:55 ECG: Interpreted By Me, Viewed By Me ECG Rhythm: Atrial Fibrillation Interpretation Of ECG: Non-specific ST- changes. No ST -elevation. Rate From EC O2 Sat by Pulse Oximetry: 98 - Other Rad CXR X-Ray: Interpreted by Me, Viewed By Me Interpretation: IMPRESSION: Previously suspected mild pulmonary venous congestive changes appear improved. Minor bibasilar atelectasis. Medical Decision Making Medical Decision Making: Impression: 78 year old female with mid-sternal chest pain. Plan: EKG and CXR ordered for patient. Patient given Aspirin PO Labs ordered with troponin and CBC LEFT AMA Disposition Discussed With Dr.: Walter Cook (recomened admission) Counseled Patient/Family Regarding: Diagnosis - Disposition Disposition: AGAINST MEDICAL ADVICE Disposition Time: 15:05 Condition: STABLE Additional Instructions: [facility] AMA Forms: [facility] (Turkish) - Clinical Impression Clinical Impression: Chest pain - Scribe Statement The provider has reviewed the documentation as recorded by the Scribe (Nidhi Quiñonez) All medical record entries made by the Scribe were at my direction and personally dictated by me. I have reviewed the chart and agree that the record accurately reflects my personal performance of the history, physical exam, medical decision making, and the department course for this patient. I have also personally directed, reviewed, and agree with the discharge instructions and disposition.
--- NOTE | 2018-09-25 14:08 | RAD ---
Date of service: 09/25/2018 HISTORY: Chest pain COMPARISON: Comparison chest dated 09/23/2018 FINDINGS: LUNGS: Previously suspected mild pulmonary venous congestive changes appear improved. Minor bibasilar atelectasis. PLEURA: No significant pleural effusion identified, no pneumothorax apparent. CARDIOVASCULAR: Mild aortic atherosclerotic calcification present. Heart appears mildly enlarged OSSEOUS STRUCTURES: No significant abnormalities. VISUALIZED UPPER ABDOMEN: Normal. OTHER FINDINGS: None. IMPRESSION: Previously suspected mild pulmonary venous congestive changes appear improved. Minor bibasilar atelectasis.
[2018-09-25 14:17] LABS: ALBUMIN 3.7 g/dL (3.5-5.0); ALT/SGPT 8 U/L (9-52); AST/SGOT 21 U/L (14-36); BLOOD UREA NITROGEN 13 mg/dL (7-17); CALCIUM 9.5 mg/dl (8.6-10.4); GFR NON-AFRICAN AMERICAN > 60
[2018-09-25 15:40] VITALS: BP 142/80; PULSE 75
--- NOTE | 2018-09-26 02:42 | CON ---
DATE: 09/25/2018 CARDIOLOGY CONSULT HISTORY OF PRESENT ILLNESS: The patient is a 78-year-old female who has a history of liver and kidney transplant many years ago and has coronary artery disease, status post LAD stenting many years ago; has history of paroxysmal atrial fibrillation; extremely noncompliant. She was in the emergency room two days ago but she decided against medical advice and she usually decides to sign against medical advice on most of her emergency room admissions prior to getting a telemetry bed. The patient presents because of what she describes as chest pain. The patient denies any associated diaphoresis or dizziness and denies any recent syncope or fall. SOCIAL HISTORY: The patient is a nonsmoker, nondrinker. She lives with her daughter. MEDICATIONS: The patient's home medications include tacrolimus 0.5 mg twice a day, clonazepam 0.5 mg twice a day, tramadol 1 tablet every 12 hours p.r.n., Norvasc 10 mg once a day, aspirin 81 mg once a day, labetalol 100 mg twice a day, Crestor 5 mg daily, Eliquis 2.5 mg twice a day. REVIEW OF SYSTEMS: No nausea or vomiting. No fever or chills. PHYSICAL EXAMINATION: GENERAL: The patient is an elderly female who does not appear to be in acute distress. VITAL SIGNS: Blood pressure 156/89, heart rate 84, temperature 98.3, respirations 20. HEENT: Normocephalic. CHEST: Clear. HEART: S1 and S2. Regular. ABDOMEN: Soft. EXTREMITIES: No edema. LABORATORY DATA: SMA-7: Sodium 137, potassium 4.5, chloride 105, CO2 of 26, glucose 111, BUN 15, creatinine 0.9, one set of troponin is negative. Today's hemoglobin and hematocrit 11 and 35. White count and platelet count are within normal limits. EKG revealed atrial fibrillation at the rate of 82, nonspecific ST-segment abnormality, left axis deviation. The first set of troponin is negative. ASSESSMENT: 1. Chest pain, rule out myocardial infarction. 2. Paroxysmal atrial fibrillation. 3. Uncontrolled hypertension. 4. Status post liver and kidney transplant. 5. Anxiety disorder. RECOMMENDATIONS: Admit the patient to telemetry. Monitor the EKGs and serial cardiac enzymes. Resume tacrolimus 0.5 mg twice a day, clonazepam 0.5 mg twice a day. To continue aspirin 81 mg once a day, amlodipine at 10 mg once a day, labetalol 100 mg once a day, Eliquis at 2.5 mg twice a day. Walter Cook MD [facility] # [id number]
--- NOTE | 2018-09-26 22:27 | CARD ---
APPROVED REPORT Date of service: 09/25/2018 EKG Measurement Heart [id number] <Conclusion> Atrial fibrillation Left axis deviation Nonspecific ST abnormality Abnormal ECG
== END 2018-09-25 15:10 | disposition left against medical advice (07) ==
LOC: C.ER 12:09
DX: R07.9 Chest pain, unspecified (principal); I12.9 Hypertensive chronic kidney disease with stage 1 through stage 4 chronic kidney disease, or unspecified chronic kidney disease; N18.9 Chronic kidney disease, unspecified; I25.10 Atherosclerotic heart disease of native coronary artery without angina pectoris; M06.9 Rheumatoid arthritis, unspecified; M81.0 Age-related osteoporosis without current pathological fracture

== ENCOUNTER 2018-09-28 06:22 | Observation (INO) | payer MEDICARE ==
[2018-09-28 06:22] VITALS: BMI 27.3
[2018-09-28 07:01] LABS: BASO # 0.1 K/uL (0.0-0.2); BASO % 0.9 % (0.0-2.0); EOS # 0.2 K/uL (0.0-0.7); EOS % 2.3 % (0.0-4.0); HEMOGLOBIN 11.2 g/dL (11.0-16.0); LYMPH # 1.4 K/uL (1.0-4.3); LYMPH % 17.8 % (20.0-40.0); MEAN CELL VOLUME 74.1 fL (81.0-99.0); MEAN CORPUSCULAR HEMOGLOBIN 23.4 pg (27.0-31.0); MEAN CORPUSCULAR HGB CONC 31.5 g/dL (33.0-37.0); MEAN PLATELET VOLUME 8.6 fL (7.2-11.7); MONO # 0.7 K/uL (0.0-0.8); MONO % 8.8 % (0.0-10.0); NEUT # 5.4 K/uL (1.8-7.0); NEUT % 70.2 % (50.0-75.0); RBC 4.78 Mil/uL (3.80-5.20); RED CELL DISTRIBUTION WIDTH 19.3 % (11.5-14.5); WHITE BLOOD COUNT 7.6 K/uL (4.8-10.8)
[2018-09-28 07:11] LABS: INR 1.6; PROTHROMBIN TIME 17.5 SECONDS (9.7-12.2)
[2018-09-28 08:02] LABS: ALBUMIN 3.7 g/dL (3.5-5.0); ALT/SGPT 13 U/L (9-52); AST/SGOT 23 U/L (14-36); B-TYPE NATRIURETIC PEPTIDE 2010 pg/mL (0-900); BLOOD UREA NITROGEN 25 mg/dL (7-17); CALCIUM 9.4 mg/dl (8.6-10.4); CK-MB 0.74 ng/mL (0.0-3.38); GFR NON-AFRICAN AMERICAN > 60
--- NOTE | 2018-09-28 08:03 | C.PDOC ---
History Of Present Illness 78 y/o female,w/PMhx of HTN, Atrial Fibrillation, CAD, 2 coronary stents, anemia, and depression, presents to the ER complaining of chest pain which began at 3 am. Patient states that it " feels like someone punched me in the chest." Patient reports that she took Aspirin and a "heart pill". Denies having fever,chills, SOB,nausea and vomiting.Of note, HPI is limited because patient is poor historian. Chief Complaint (Nursing): Chest Pain History Per: Patient History/Exam Limitations: other (pt is poor historian) Onset/Duration Of Symptoms: Hrs Current Symptoms Are (Timing): Still Present Severity: Moderate Past Medical History Reviewed: Historical Data, Nursing Documentation, Vital Signs Vital Signs: Last Vital Signs Temp 98.1 F 09/28/18 06:32 Pulse 102 H 09/28/18 06:47 Resp 20 09/28/18 06:32 BP 134/103 H 09/28/18 06:32 Pulse Ox 100 09/28/18 06:32 - Medical History PMH: Anemia, Anxiety, Arthritis, Atrial Fibrillation, CAD, Depression, Fractures (Hx left hip Fx), HTN, Osteoporosis, Chronic Kidney Disease, Rheumatoid Arthritis Denies: Diabetes, Hepatitis, HIV, Seizures, Sexually Transmitted Disease Surgical History: Coronary Stent (x2) Family History: States: No Known Family Hx - Social History Hx Tobacco Use: No Hx Alcohol Use: No Hx Substance Use: No - Immunization History Hx Tetanus Toxoid Vaccination: No Hx Influenza Vaccination: No Hx Pneumococcal Vaccination: No Review Of Systems Except As Marked, All Systems Reviewed And Found Negative. Constitutional: Negative for: Fever, Chills Cardiovascular: Positive for: Chest Pain Respiratory: Negative for: Shortness of Breath Gastrointestinal: Negative for: Nausea, Vomiting Physical Exam - Physical Exam Appears: Non-toxic, No Acute Distress Skin: Normal Color, Warm, Dry Head: Atraumatic, Normacephalic Eye(s): bilateral: Normal Inspection Nose: Normal Oral Mucosa: Moist Neck: Supple Chest: Symmetrical Cardiovascular: Rhythm Regular Respiratory: Normal Breath Sounds, No Rales, No Rhonchi, No Wheezing Gastrointestinal/Abdominal: Normal Exam, Soft, No Tenderness, No Guarding, No Rebound Extremity: Normal ROM, Other (bilateral lower extremity edema) Neurological/Psych: Oriented x3, Normal Speech ED Course And Treatment - Laboratory Results Result Diagrams: 09/28/18 06:55 09/28/18 06:55 Lab Results: PT 17.5 SECONDS (9.7-12.2) H 09/28/18 06:55 INR 1.6 09/28/18 06:55 APTT 37 SECONDS (21-34) H 09/28/18 06:55 ECG: Interpreted By Me, Viewed By Me ECG Rhythm: Atrial Fibrillation Interpretation Of ECG: Atrial fibrillation with left axis deviation, artifact in lead V4-V5, normal intervals, and no ST elevations Rate From EC O2 Sat by Pulse Oximetry: 100 (RA) Pulse Ox Interpretation: Normal Medical Decision Making Medical Decision Making: Plan: --Labs --EKG --CXR --Magnesium Sulfate IV Updates: 8:15 AM Case discussed with . recommend for patient to be admitted under the hospitalist. Patient agrees with admission. 8:17 AM Case discussed with Dr.N Torres, hospitalist. Patient will be admitted under the service of Dr. Claude Torres. Disposition Counseled Patient/Family Regarding: Studies Performed, Diagnosis - Disposition Disposition: HOSPITALIZED Disposition Time: 08:17 Condition: STABLE - Clinical Impression Clinical Impression: Chest pain, Hypomagnesemia - Scribe Statement The provider has reviewed the documentation as recorded by the Santhosh Reyez Provider Attestation: All medical record entries made by the Harleyibnaren were at my direction and personally dictated by me. I have reviewed the chart and agree that the record accurately reflects my personal performance of the history, physical exam, medical decision making, and the department course for this patient. I have also personally directed, reviewed, and agree with the discharge instructions and disposition.
[2018-09-28] MEDS ORDERED: Magnesium Sulfate 1 gm in D5W 1 GM/100 ML BAG IVPB ONE (08:06)
--- NOTE | 2018-09-28 09:47 | CP.PCM.HP ---
<Niall Ellsworth - Last Filed: 09/28/18 18:57> History of Present Illness - History of Present Illness History of Present Illness: History and physical for Hospitalist service HPI: Patient is a 78 year old female with history of CAD with 2 stents, HTN, CKD with renal transplant, liver transplant, Atrial fibrillation, who presents for chest pain described as feeling that someone is punching her in her chest rated 4/10 associated with lightheadedness and palpitations when she woke up this morning at 5am. She states her chest pain currently is a 2/10, more tolerable. She states her dizziness and palpitations has resolved completely. She states she ate breakfast this morning and developed mild abdominal pain with soft nonbloody stools. She denies fevers, chills, cough, sore throat, blurry vision, changes in hearing, dysuria, leg swelling, leg pain. She admits feeling sad and lonely living alone, stating she think she needs to stay with her daughter who lives in the [facility]. PMH: HTN, CAD with stents x2, A fib, renal and liver transplant, CKD, anxiety PSH: renal transplant, liver transplant, tubal ligation, CAD with 2 stents Home meds: confirmed with [facility] at [phone] Lasix 20mg PO daily, Zolpidem 10mg PO HS, Lidoderm 3 patches, Tacrolimus 0.5mg PO BID, Norvasc 10mg PO daily, Eliquis 2.5mg PO BID, Clonazepam 0.5mg PO BID, Labetalol 100mg PO BID Social hx: Lives alone, daughter who live in the [facility], son in [place]. States a lot of her family moved away to [place] and her brother is caring for his . Denies history of smoking, alcohol or drug use. Did not work consistently since she states she was "always sick". twice, currently . unsure of when her 2nd . Family hx: mother had asthma Allergies: PCN, Iodine -> rash/vomiting Code status "I don't know, ask my daughter" No advance directive in place Healthcare proxy: Daughter Dahlia Manley Cardio: Dr. Cook Nephro: Dr. Eric Psych: Dr. Larson - hasn't followed in a while Present on Admission - Present on Admission Any Indicators Present on Admission: No Review of Systems - Constitutional Constitutional: absent: Chills, Fever, Headache, Weakness - EENT Eyes: absent: Change in Vision Ears: absent: Decreased Hearing Nose/Mouth/Throat: absent: Sore Throat - Cardiovascular Cardiovascular: Chest Pain, Lightheadedness, Palpitations. absent: Dyspnea, Syncope - Respiratory Respiratory: absent: Cough - Gastrointestinal Gastrointestinal: Abdominal Pain. absent: Diarrhea, Nausea, Vomiting - Genitourinary Genitourinary: absent: Change in Urinary Stream, Dysuria, Urinary Incontinence - Musculoskeletal Musculoskeletal: absent: Back Pain, Joint Swelling - Neurological Neurological: absent: Confusion, Focal Weakness, Headaches, Syncope - Psychiatric Psychiatric: Anxiety. absent: Confusion Past Patient History - Infectious Disease Hx of Infectious Diseases: None - Tetanus Immunizations Tetanus Immunization: Unknown - Past Medical History & Family History Past Medical History?: Yes - Past Social History Smoking Status: Never Smoked - CARDIAC Hx Atrial Fibrillation: Yes Hx Hypertension: Yes - PULMONARY Hx Tuberculosis: No - NEUROLOGICAL Hx Seizures: No - HEENT Hx HEENT Problems: Yes Other/Comment: Eliseo eye implants - RENAL Hx Chronic Kidney Disease: Yes - ENDOCRINE/METABOLIC Hx Endocrine Disorders: No - HEMATOLOGICAL/ONCOLOGICAL Hx Anemia: Yes Hx Human Immunodeficiency Virus (HIV): No - INTEGUMENTARY Hx Dermatological Problems: No - MUSCULOSKELETAL/RHEUMATOLOGICAL Hx Arthritis: Yes Hx Fractures: Yes (Hx left hip Fx) Hx Osteoporosis: Yes Hx Rheumatoid Arthritis: Yes - GASTROINTESTINAL Hx Gastrointestinal Disorders: Yes Other/Comment: Liver transplant, Kidney transplant. - GENITOURINARY/GYNECOLOGICAL Hx Sexually Transmitted Disorders: No - PSYCHIATRIC Hx Anxiety: Yes Hx Depression: Yes Hx Substance Use: No - SURGICAL HISTORY Hx Coronary Stent: Yes (x2) - ANESTHESIA Hx Anesthesia: Yes Hx Anesthesia Reactions: No Hx Malignant Hyperthermia: No Meds Allergies/Adverse Reactions: Allergies Allergy/AdvReac Type Severity Reaction Status Date / Time iodine Allergy Verified 09/25/18 12:18 Penicillins Allergy Verified 09/25/18 12:18 prednisolone Allergy Verified 09/25/18 12:18 prednisone Allergy Verified 09/25/18 12:18 dye Allergy Uncoded 09/23/18 07:51 Physical Exam - Constitutional Appears: Well, Non-toxic, No Acute Distress - Head Exam Head Exam: ATRAUMATIC, NORMOCEPHALIC - Eye Exam Eye Exam: EOMI, PERRL - ENT Exam ENT Exam: Mucous Membranes Moist - Neck Exam Neck exam: Positive for: Full Rom. Negative for: Tenderness - Respiratory Exam Respiratory Exam: Clear to Auscultation Bilateral, NORMAL BREATHING PATTERN. absent: Rales, Rhonchi, Wheezes, Respiratory Distress, Stridor - Cardiovascular Exam Cardiovascular Exam: Irregular Rhythm (Irregularly irregular, rate controlled. ) Additional comments: Tender to palpation of midsternum - GI/Abdominal Exam GI & Abdominal Exam: Normal Bowel Sounds, Soft. absent: Distended, Firm, Guarding, Hernia, Tenderness - Extremities Exam Extremities exam: Positive for: pedal edema (2+ lower extremity pitting edema extending up to mid calf. ), pedal pulses present. Negative for: calf tenderness - Back Exam Back exam: absent: CVA tenderness (L), CVA tenderness (R) - Neurological Exam Neurological exam: Alert, CN II-XII Intact, Oriented x3 - Psychiatric Exam Psychiatric exam: Anxious - Skin Skin Exam: Dry, Intact, Warm Additional comments: Multiple tattoos Results - Vital Signs Recent Vital Signs: Last Vital Signs Temp 98.2 F 09/28/18 08:05 Pulse 81 09/28/18 08:05 Resp 18 09/28/18 08:05 BP 134/90 09/28/18 08:05 Pulse Ox 100 09/28/18 08:50 - Labs Result Diagrams: 09/28/18 06:55 09/28/18 06:55 Labs: Laboratory Results - last 24 hr 09/28/18 09/28/18 09/28/18 06:55 06:55 06:55 WBC 7.6 RBC 4.78 Hgb 11.2 Hct 35.4 MCV 74.1 L MCH 23.4 L MCHC 31.5 L RDW 19.3 H Plt Count 226 MPV 8.6 Neut % (Auto) 70.2 Lymph % (Auto) 17.8 L [place] % (Auto) 8.8 Eos % (Auto) 2.3 Baso % (Auto) 0.9 Neut # (Auto) 5.4 Lymph # (Auto) 1.4 [place] # (Auto) 0.7 Eos # (Auto) 0.2 Baso # (Auto) 0.1 PT 17.5 H INR 1.6 APTT 37 H Sodium 137 Potassium 3.6 Chloride 104 Carbon Dioxide 23 Anion Gap 14 BUN 25 H Creatinine 0.9 Est GFR ( Amer) > 60 Est GFR (Non-Af Amer) > 60 Random Glucose 128 H Calcium 9.4 Magnesium 1.2 L Total Bilirubin 0.4 AST 23 ALT 13 Alkaline Phosphatase 99 Total Creatine Kinase 70 CK-MB (Mass) 0.74 Troponin I < 0.0120 NT-Pro-B Natriuret Pep 2010 H Total Protein 7.4 Albumin 3.7 Globulin 3.7 Albumin/Globulin Ratio 1.0 Assessment & Plan - Assessment and Plan (Free Text) Assessment: 78 year old female with history of CAD with 2 stents who presents for chest pain. Plan: Atypical chest pain Serial cardiac enzymes x2 negative. Initial EKG A fib, rate controlled, left axis deviation, prolonged QTc no ST-T segment depressions, no Q waves. Cardiology Dr. Cook consulted, help appreciated hall monitor for 24 hours Hypomagnesemia Repleted in ED Abnormal RBC indices TIBC, % sat, ferritin pending Patient has never had a colonoscopy before, will need outpatient follow up with GI Elevated ProBNP ECHO from April 2018 reveals EF of 65% 2009, slightly increased from 09/17/[address] Cook on board Anxiety/depression Psychiatrist Dr. Sultana consulted, Case discussed with Dr. Sultana, who recommended starting Lexapro 5mg PO, with slowly weaning of Clonazepam by about 0.25mg after 4 weeks, and then in 0.25mg every 4 weeks. Patient has seen Dr. Larson in the past for her anxiety Bilateral lower extremity edema Lower extremity dopplers f/u SCDs contraindicated History of CAD with stents Labetalol 100mg PO BID, hold for SBP<100, HR <60 ASA 81mg PO Crestor 5mg PO HS TSH 2.67 T4 1.29 Lipid panel TG 156 cholesterol 189 LDL 96 HDL 63 History of Atrial fibrillation Eliquis 2.5mg PO BID History of CKD with renal and liver transplant Tacrolimus 0.5mg PO BID Monitor BUN/Cr History of HTN Norvasc 10mg PO Labetalol 100mg PO BID Prophylaxis Protonix 40mg PO daily Eliquis 2.5mg PO BID Heart healthy diet/2g Na Case management Susanne on the case, agreed to follow up with patient's daughter regarding home situation. Case discussed with Dr. Rudy Ellsworth, PGY1 <Rudy Torres - Last Filed: 09/29/18 19:53> Results - Vital Signs Recent Vital Signs: Last Vital Signs Temp 98.1 F 09/29/18 12:30 Pulse 67 09/29/18 16:29 Resp 18 09/29/18 12:30 BP 141/87 09/29/18 12:30 Pulse Ox 97 09/29/18 16:30 - Labs Result Diagrams: 09/29/18 07:00 09/29/18 07:00 Labs: Laboratory Results - last 24 hr 09/28/18 09/28/18 09/28/18 20:43 20:43 20:43 WBC RBC Hgb Hct MCV MCH MCHC RDW Plt Count MPV Neut % (Auto) Lymph % (Auto) [place] % (Auto) Eos % (Auto) Baso % (Auto) Neut # (Auto) Lymph # (Auto) [place] # (Auto) Eos # (Auto) Baso # (Auto) Sodium Potassium Chloride Carbon Dioxide Anion Gap BUN Creatinine Est GFR ( Amer) Est GFR (Non-Af Amer) POC Glucose (mg/dL) Random Glucose Calcium Phosphorus Magnesium Iron 35 L TIBC 377 % Saturation 9 L Ferritin 11.9 Total Bilirubin AST ALT Alkaline Phosphatase Total Creatine Kinase 58 CK-MB (Mass) 0.48 Troponin I < 0.0120 Total Protein Albumin Globulin Albumin/Globulin Ratio 09/28/18 09/29/18 09/29/18 21:40 06:42 07:00 WBC 5.5 RBC 4.39 Hgb 10.4 L Hct 32.6 L MCV 74.2 L MCH 23.6 L MCHC 31.8 L RDW 19.9 H Plt Count 209 MPV 8.3 Neut % (Auto) 55.5 Lymph % (Auto) 27.1 [place] % (Auto) 13.8 H Eos % (Auto) 3.1 Baso % (Auto) 0.5 Neut # (Auto) 3.1 Lymph # (Auto) 1.5 [place] # (Auto) 0.8 Eos # (Auto) 0.2 Baso # (Auto) 0.0 Sodium Potassium Chloride Carbon Dioxide Anion Gap BUN Creatinine Est GFR ( Amer) Est GFR (Non-Af Amer) POC Glucose (mg/dL) 99 105 Random Glucose Calcium Phosphorus Magnesium Iron TIBC % Saturation Ferritin Total Bilirubin AST ALT Alkaline Phosphatase Total Creatine Kinase CK-MB (Mass) Troponin I Total Protein Albumin Globulin Albumin/Globulin Ratio 09/29/18 09/29/18 09/29/18 07:00 11:53 16:19 WBC RBC Hgb Hct MCV MCH MCHC RDW Plt Count MPV Neut % (Auto) Lymph % (Auto) [place] % (Auto) Eos % (Auto) Baso % (Auto) Neut # (Auto) Lymph # (Auto) [place] # (Auto) Eos # (Auto) Baso # (Auto) Sodium 137 Potassium 3.2 L Chloride 104 Carbon Dioxide 28 Anion Gap 9 L BUN 26 H Creatinine 1.0 Est GFR ( Amer) > 60 Est GFR (Non-Af Amer) 54 POC Glucose (mg/dL) 133 H 123 H Random Glucose 112 H Calcium 9.4 Phosphorus 4.4 Magnesium 1.8 Iron TIBC % Saturation Ferritin Total Bilirubin 0.5 AST 29 ALT 15 Alkaline Phosphatase 124 Total Creatine Kinase CK-MB (Mass) Troponin I Total Protein 6.9 Albumin 3.4 L Globulin 3.5 Albumin/Globulin Ratio 1.0 Attending/Attestation - Attestation I have personally seen and examined this patient.: Yes I have fully participated in the care of the patient.: Yes I have reviewed all pertinent clinical information: Yes Notes (Text): 09/29/18 19:52 This is a late entry. History, Physical, Assessment and Plan and all orders were thoroughly gone over with resident Dr. Ellsworth. Rudy Torres D.O.
--- NOTE | 2018-09-28 10:12 | RAD ---
Chest x-ray single frontal view HISTORY: Chest pain. Comparison: X-ray dated 09/25/2018 Findings: Mild venous congestion. Patchy increased markings at the lung bases. Tortuous ectatic aorta with calcification at the aortic knob. Cardiomegaly. Degenerative changes in the spine and shoulders. Impression: Mild venous congestion. Patchy increased markings at the lung bases. Tortuous ectatic aorta with calcification at the aortic knob. Cardiomegaly. Degenerative changes in the spine and shoulders.
[2018-09-28] MEDS: Pantoprazole 40 mg EC Tab PO SCH (11:32)
[2018-09-28 15:12] LABS: CK-MB 0.66 ng/mL (0.0-3.38)
--- NOTE | 2018-09-28 20:49 | CP.PCM.PCO ---
Physician Communication Note - Physician Communication Note Physician Communication Note: Case d/w Dr. Ellsworth. Consult will be requested if needed later.
[2018-09-28 20:59] LABS: IRON 35 ug/dL (37-170)
[2018-09-28 21:11] LABS: % IRON SATURATION 9 (20-55); TOTAL IRON BINDING CAPACITY 377 ug/dL (250-450)
[2018-09-28 21:14] LABS: CK-MB 0.48 ng/mL (0.0-3.38)
--- NOTE | 2018-09-29 01:02 | CP.PCM.PN ---
Subjective - Date & Time of Evaluation Date of Evaluation: 09/29/18 Time of Evaluation: 00:58 - Subjective Subjective: PGY-1 Night float resident note Patient is c/o anxiety, restless, and cannot sleep overnight. Xanax PO 0.25 given once as patient asking for clonopin and did miss one dose of clonopin today. Patient continues to complain of anxiety and insomnia, and I did put on Ambien 5mg HS as she takes Ambien at home. Although per her pharmacy she takes 10mg PO at night for sleep, she is already taking benzodiazepines for anxiety. Darrel Ivory, PGY-1 Objective - Vital Signs/Intake and Output Vital Signs (last 24 hours): Temp Pulse Resp BP Pulse Ox 98.0 F 75 20 112/66 98 09/28/18 23:00 09/28/18 23:00 09/28/18 23:00 09/28/18 23:00 09/28/18 23:00 Intake and Output: 09/28/18 09/29/18 18:59 06:59 Intake Total 100 300 Balance 100 300 - Medications Medications: Current Medications Amlodipine Besylate (Norvasc) 10 mg PO DAILY [facility] Last Admin: 09/28/18 11:24 Dose: 10 mg Apixaban (Eliquis) 2.5 mg PO BID [facility] Last Admin: 09/28/18 17:14 Dose: 2.5 mg Aspirin (Aspirin Chewable) 81 mg PO DAILY [facility] Last Admin: 09/28/18 14:46 Dose: 81 mg Clonazepam (Klonopin) 0.5 mg PO BID [facility] Last Admin: 09/28/18 17:18 Dose: Not Given Escitalopram Oxalate (Lexapro) 5 mg PO DAILY [facility] Furosemide (Lasix) 20 mg PO DAILY [facility] Last Admin: 09/28/18 11:32 Dose: Not Given Labetalol HCl (Trandate) 100 mg PO BID [facility] Last Admin: 09/28/18 17:14 Dose: 100 mg Pantoprazole Sodium (Protonix Ec Tab) 40 mg PO DAILY [facility] Last Admin: 09/28/18 11:32 Dose: Not Given Rosuvastatin Calcium (Crestor) 5 mg PO [facility] Last Admin: 09/28/18 22:10 Dose: Not Given Tacrolimus (Prograf Cap) 0.5 mg PO BID [facility] Last Admin: 09/28/18 17:14 Dose: 0.5 mg Zolpidem Tartrate (Ambien) 5 mg PO HS PRN PRN Reason: Insomnia - Labs Labs: 09/28/18 06:55 09/28/18 06:55 PT 17.5 SECONDS (9.7-12.2) H 09/28/18 06:55 INR 1.6 09/28/18 06:55 APTT 37 SECONDS (21-34) H 09/28/18 06:55
--- NOTE | 2018-09-29 04:52 | CON ---
DATE: 09/28/2018 REASON FOR CONSULTATION: Chest pain. 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 The patient was recently diagnosed with paroxysmal atrial fibrillation. The patient presented two times earlier on September 23 and September 25 to the emergency room because of chest discomfort, and she signed against medical advice both times. She presented at this time because of chest pain which she describes as someone punching her in her chest: The patient denies any dizziness. The patient denies any history of stroke in the past. SOCIAL HISTORY: This patient is a nonsmoker, nondrinker. She lives by herself. However, her daughters are always checking on her. REVIEW OF SYSTEMS: The patient has a history of anxiety. However, she refused as far as they can recall psychiatry referral. MEDICATIONS: Aspirin 81 mg once a day, Crestor 5 mg once a day, Eliquis 2.5 mg twice a day, Klonopin 0.5 mg twice a day, Lasix 20 mg p.o. once a day, Lexapro 5 mg once a day, Norvasc 10 mg once a day, Prograf 0.5 mg twice a day, Protonix 40 mg p.o. once a day, Trandate 100 mg twice a day. PHYSICAL EXAMINATION: GENERAL: The patient is an elderly female who does not appear to be in acute distress. VITAL SIGNS: Blood pressure 139/81, heart rate 80, temperature 98, respirations 20. HEENT: Normocephalic. NECK: No JVD. CHEST: Clear. HEART: S1, S2. Regular. ABDOMEN: Soft. EXTREMITIES: No edema. LABORATORY DATA: Hemoglobin and hematocrit 11.1 and 35.4. White count 7.6, platelet count 226,000. INR is 1.6. PTT 37. SMA-7: Sodium 137, potassium 3.6, chloride 104, CO2 of 23, glucose 128, BUN 25, creatinine 0.9. Two sets of troponins are negative. Triglycerides are 156, slightly elevated. The rest of the lipid profile is within normal limits. TSH level is within normal limits. EKG revealed atrial fibrillation at rate of 78, PVCs versus aberrancy, nonspecific ST-segment changes, slightly prolonged QT interval. Venous Doppler of lower extremities is performed, the report is still pending. Chest x-ray was unremarkable except for borderline cardiomegaly. The official report of that x-ray stated mild venous congestion, patchy increased marking in the lung bases, tortuous ectatic aorta with calcification at the aortic knob. Cardiomegaly. Degenerative spine and shoulder changes. ASSESSMENT: 1. Chest pain, myocardial infarction is ruled out. 2. Paroxysmal atrial fibrillation. 3. Hypertension. 4. Status post liver and kidney transplant. 5. Anxiety disorder. RECOMMENDATIONS: Continue aspirin 81 mg once a day, Crestor 5 mg once a day, Eliquis 2.5 mg twice a day, Lexapro 5 mg once a day, Norvasc 10 mg once a day, Prograf 0.5 mg twice a day, Trandate 100 mg twice a day. The patient did receive intravenous magnesium replacement for her hypomagnesemia which was 1.2 on admission. Obtain a followup magnesium level. The patient can be maintained on medical therapy and be scheduled for an outpatient stress test. Walter Cook MD
[2018-09-29 07:23] LABS: BASO % 0.5 % (0.0-2.0); EOS # 0.2 K/uL (0.0-0.7); EOS % 3.1 % (0.0-4.0); HEMOGLOBIN 10.4 g/dL (11.0-16.0); LYMPH # 1.5 K/uL (1.0-4.3); LYMPH % 27.1 % (20.0-40.0); MEAN CELL VOLUME 74.2 fL (81.0-99.0); MEAN CORPUSCULAR HEMOGLOBIN 23.6 pg (27.0-31.0); MEAN CORPUSCULAR HGB CONC 31.8 g/dL (33.0-37.0); MEAN PLATELET VOLUME 8.3 fL (7.2-11.7); MONO # 0.8 K/uL (0.0-0.8); MONO % 13.8 % (0.0-10.0); NEUT # 3.1 K/uL (1.8-7.0); NEUT % 55.5 % (50.0-75.0); NRBC % 0.1 % (0.0-2.0); RBC 4.39 Mil/uL (3.80-5.20); RED CELL DISTRIBUTION WIDTH 19.9 % (11.5-14.5); WHITE BLOOD COUNT 5.5 K/uL (4.8-10.8)
[2018-09-29 07:54] LABS: ALBUMIN 3.4 g/dL (3.5-5.0); ALT/SGPT 15 U/L (9-52); AST/SGOT 29 U/L (14-36); BLOOD UREA NITROGEN 26 mg/dL (7-17); CALCIUM 9.4 mg/dl (8.6-10.4); GFR NON-AFRICAN AMERICAN 54
[2018-09-29 08:26] VITALS: RESP 18
[2018-09-29] MEDS: Pantoprazole 40 mg EC Tab PO SCH (09:18)
[2018-09-29 09:20] VITALS: BP 141/87
[2018-09-29] MEDS ORDERED: Potassium Chloride 20 mEq ER Tab PO ONE (09:32)
--- NOTE | 2018-09-29 11:41 | VASCLAB ---
Date of service: 09/28/2018 PROCEDURE: Lower Extremity Venous Duplex Exam. HISTORY: lower extremity edema PRIORS: None. TECHNIQUE: Bilateral common femoral, femoral, popliteal and posterior tibial, peroneal and great saphenous veins were evaluated. Flow was assessed with color Doppler, compressibility, assessment of phasic flow and augmentation response. Report prepared by Jordan Gomez, BS, RVT FINDINGS: RIGHT: 1. Common Femoral Vein: 1.1. Compressibility - Fully compressible: Thrombus - None : Flow - Phasic: Augmentation -Normal: Reflux - None. 2. Femoral Vein: 2.1. Compressibility - Fully compressible: Thrombus - None : Flow - Phasic: Augmentation -Normal: Reflux - None. 3. Popliteal Vein: 3.1. Compressibility - Fully compressible: Thrombus - None : Flow - Phasic: Augmentation -Normal: Reflux - None. 4. Posterior Tibial Vein: 4.1. Compressibility - Fully compressible: Thrombus - None: Flow - Phasic: Augmentation -Normal: Reflux - None. 5. Peroneal Vein: 5.1. Compressibility - Fully compressible: Thrombus - None: Flow - Phasic: Augmentation -Normal: Reflux - None. 6. Great Saphenous Vein: 6.1. Compressibility - Fully compressible: Thrombus - None: Flow - Phasic: Augmentation - Normal: Reflux - None. LEFT: 1. Common Femoral Vein: 1.1. Compressibility - Fully compressible: Thrombus - None: Flow - Phasic: Augmentation -Normal: Reflux - None. 2. Femoral Vein: 2.1. Compressibility - Fully compressible: Thrombus - None: Flow - Phasic: Augmentation -Normal: Reflux - None. 3. Popliteal Vein: 3.1. Compressibility - Fully compressible: Thrombus - None : Flow - Phasic: Augmentation -Normal: Reflux - None. 4. Posterior Tibial Vein: 4.1. Compressibility - Fully compressible: Thrombus - None: Flow - Phasic: Augmentation -Normal: Reflux - None. 5. Peroneal Vein: 5.1. Compressibility - Fully compressible: Thrombus - None: Flow - Phasic: Augmentation -Normal: Reflux - None. 6. Great Saphenous Vein: 6.1. Compressibility - Fully compressible: Thrombus - None: Flow - Phasic: Augmentation - Normal: Reflux - None. OTHER FINDINGS: Right: Irregular shaped anechoic non vascularized mass noted behind right knee. Clinical correlation recommended. Left: None significant. IMPRESSION: Right: No evidence of deep or superficial vein thrombosis of the right lower extremity. Normal valve function noted of the right side. Left: No evidence of deep or superficial vein thrombosis of the left lower extremity. Normal valve function noted of the left side.
--- NOTE | 2018-09-29 11:47 | CP.PCM.PN ---
Objective - Vital Signs/Intake and Output Vital Signs (last 24 hours): Temp Pulse Resp BP Pulse Ox 97.2 F L 79 18 141/87 95 09/29/18 08:25 09/29/18 08:25 09/29/18 08:25 09/29/18 09:18 09/29/18 08:25 Intake and Output: 09/29/18 09/29/18 06:59 18:59 Intake Total 300 240 Balance 300 240 - Medications Medications: Current Medications Amlodipine Besylate (Norvasc) 10 mg PO DAILY [facility] Last Admin: 09/29/18 09:18 Dose: 10 mg Apixaban (Eliquis) 2.5 mg PO BID [facility] Last Admin: 09/29/18 09:18 Dose: 2.5 mg Aspirin (Aspirin Chewable) 81 mg PO DAILY [facility] Last Admin: 09/29/18 09:18 Dose: 81 mg Clonazepam (Klonopin) 0.5 mg PO BID [facility] Last Admin: 09/29/18 09:17 Dose: 0.5 mg Escitalopram Oxalate (Lexapro) 5 mg PO DAILY [facility] Last Admin: 09/29/18 09:18 Dose: 5 mg Furosemide (Lasix) 20 mg PO DAILY [facility] Last Admin: 09/29/18 09:18 Dose: 20 mg Labetalol HCl (Trandate) 100 mg PO BID [facility] Last Admin: 09/29/18 09:19 Dose: 100 mg Pantoprazole Sodium (Protonix Ec Tab) 40 mg PO DAILY [facility] Last Admin: 09/29/18 09:18 Dose: 40 mg Rosuvastatin Calcium (Crestor) 5 mg PO HS [facility] Last Admin: 09/28/18 22:10 Dose: Not Given Tacrolimus (Prograf Cap) 0.5 mg PO BID [facility] Last Admin: 09/29/18 09:19 Dose: 0.5 mg Zolpidem Tartrate (Ambien) 5 mg PO HS PRN PRN Reason: Insomnia - Labs Labs: 09/29/18 07:00 09/29/18 07:00 PT 17.5 SECONDS (9.7-12.2) H 09/28/18 06:55 INR 1.6 09/28/18 06:55 APTT 37 SECONDS (21-34) H 09/28/18 06:55
--- NOTE | 2018-09-29 12:40 | PCM.PSYCH ---
Initial Psychiatric Evaluation - Initial Psychiatric Evaluation Type of Admission: Voluntary Legal Status: Capacity Chief Complaint (in patient's own words): "My daughter" History of Present Illness and Precipitating Events: This is a 78 year old female who is with 3 children, living alone in [place], and unemployed, living off of payments from her 's presented to the hospital for chest pain. Psych was consulted to rule out depression and anxiety and evaluate long-term clonazepam use. Patient states she came to the hospital for chest pain associated with lightheadedness and palpitations when she woke up yesterday morning at 5am. She states her chest pain is minimal and that her dizziness and palpitations have , but she has not eaten due to nausea. She reported performing all ADLs. Patient became visibly teary when discussing her relationship with her daughter, who she believes blames the patient for pt's 's suicide. She also claims she is much better with her other 2 children and that her depression is due to her daughter She denies having any difficulty taking care of herself at home. [employer] Custodian was not made aware of any issues by the staff who saw her daughter. She has memory problems (3/3 immediate and 1/3 short term recall), attention problems and is disoriented to day and date. She knew the 2/3 presidents and her judgment seemed to be WNL. She is aware of her medical issues and con sequences of not treating them. Patient denies suicidal or homicidal ideations, auditory or visual hallucinations, paranoia, or trouble sleeping. Patient denies drug use. Patient appears anxious but is not in acute distress. Past psych hx: Anxiety Fam Psych: denies PMHx: CAD with 2 stents, HTN, CKD with renal transplant, liver transplant, atrial fibrillation Meds: amlodipine, labetalol, aspirin, apixaban, acetaminophen Allergies: iodine, penicillins, prednisolone, prednisone, dye SurgHx: renal transplant, liver transplant, tubal ligation, CAD with 2 stents Current Medications: Active Medications Generic Name Dose Route Start Last Admin Trade Name Freq PRN Reason Stop Dose Admin Amlodipine Besylate 10 mg 09/28/18 10:46 09/29/18 09:18 Norvasc PO 10 mg DAILY GENESIS Administration Apixaban 2.5 mg 09/28/18 18:00 09/29/18 09:18 Eliquis PO 2.5 mg BID GENESIS Administration Aspirin 81 mg 09/28/18 11:00 09/29/18 09:18 Aspirin Chewable PO 81 mg DAILY GENESIS Administration Clonazepam 0.5 mg 09/28/18 11:00 09/29/18 09:17 Klonopin PO 0.5 mg BID GENESIS Administration Escitalopram Oxalate 5 mg 09/29/18 10:00 09/29/18 09:18 Lexapro PO 5 mg DAILY GENESIS Administration Furosemide 20 mg 09/28/18 11:00 09/29/18 09:18 Lasix PO 20 mg DAILY GENESIS Administration Labetalol HCl 100 mg 09/28/18 18:00 09/29/18 09:19 Trandate PO 100 mg BID GENESIS Administration Pantoprazole Sodium 40 mg 09/28/18 11:00 09/29/18 09:18 Protonix Ec Tab PO 40 mg DAILY GENESIS Administration Rosuvastatin Calcium 5 mg 09/28/18 22:00 09/28/18 22:10 Crestor PO Not Given HS GENESIS Tacrolimus 0.5 mg 09/28/18 18:00 09/29/18 09:19 Prograf Cap PO 0.5 mg BID GENESIS Administration Zolpidem Tartrate 5 mg 09/29/18 00:56 Ambien PO HS PRN Insomnia Past Psychiatric History - Past Psychiatric History Pertinent Medical Hx (Current Medical&Sleep Prob, Allergies): Allergies Allergy/AdvReac Type Severity Reaction Status Date / Time iodine Allergy Verified 09/25/18 12:18 Penicillins Allergy Verified 09/25/18 12:18 prednisolone Allergy Verified 09/25/18 12:18 prednisone Allergy Verified 09/25/18 12:18 dye Allergy Uncoded 09/23/18 07:51 Apixaban [Eliquis] 2.5 mg PO BID #56 tablet 05/04/18 Aspirin [Aspirin Chewable] 81 mg PO DAILY chew 05/04/18 Clonazepam 0.5 mg PO BID 05/04/18 Labetalol [Trandate] 100 mg PO BID tab 05/04/18 Tacrolimus 0.5 mg PO BID 05/04/18 Tramadol HCl/Acetaminophen [Tramadol-Acetaminophn 37.5-325] 1 tab PO Q12 PRN 05/04/18 Zolpidem Tartrate 10 mg PO HS 05/04/18 amLODIPine [Norvasc] 10 mg PO DAILY tab 05/04/18 Acetaminophen [Tylenol] 325 mg PO Q6H PRN #20 capsule 05/28/18 Cholecalciferol (Vitamin D3) [Vitamin D3] 50,000 unit PO QWK 09/28/18 Furosemide [Lasix] 20 mg PO DAILY 09/28/18 Review of Systems - Psychiatric Psychiatric: Abnormal Sleep Pattern, Anhedonia, Anxiety, Change in Appetite, Depression, Difficulty Concentrating, Memory Loss. absent: Hallucinations, Homicidal Ideation, Suicidal Ideation Mental Status Examination - Personal Presentation Personal Presentation: Looks stated age - Affect Affect: Constricted - Motor Activity Motor Activity: Calm - Reliability in Providing Information Reliability in Providing Information: Good - Speech Speech: Organized - Mood Mood: Depressed, Anxious - Formal Thought Process Formal Thought Process: No Impairment - Cognitive Functions Orientation: Person, Place, Situation Sensorium: Alert Attention/Concentration: Easily distracted Estimate of Intelligence: Average Judgement: Intact, as evidence by: Insight regarding need for hospitalization Memory: Recent impaired, as evidence by: Inability to recall events of the day, Remote impaired as evidenced by: Inability to recall sig life events - Risk Risk: Diminished functioning - Strength & Assets Inventory Strength & Assets Inventory: Cooperative - Limitations Limitations: Living alone DSM 5 DX - Recommended/Plan of Treatment Treatment Recommendations and Plan of Treatment: Pt has capacity to make medical decisions. Lexapro for dep/anxiety ROVERTO thomson over 1-2 months Support and psychoed 33 min
[2018-09-29 15:12] VITALS: TEMP 98.1; O2SAT 97
--- NOTE | 2018-09-29 15:20 | CP.PCM.DIS ---
<Niall Ellsworth - Last Filed: 09/29/18 18:35> Provider - Provider Date of Admission: 09/28/18 08:21 Attending physician: Rudy Torres MD Consults: 09/28/18 09:39 Physician Consult Routine Comment: Consulting Provider: Walter Cook Consulting Physician: Walter Cook Reason for Consult: chest pain, history of CAD with stents 09/28/18 10:43 Case Management Referral Routine Comment: Physician Instructions: Reason For Exam: Reason for Referral: Discharge Planning 09/28/18 10:44 Physician Consult Routine Comment: Consulting Provider: Allyn Sultana Consulting Physician: Allyn Sultana Reason for Consult: SSRI recommmended? Time Spent in preparation of Discharge (in minutes): 40 Diagnosis - Discharge Diagnosis (1) Chest pain, atypical Status: Acute (2) Anxiety Status: Acute Hospital Course - Lab Results Lab Results: Most Recent Lab Values WBC 5.5 K/uL (4.8-10.8) 09/29/18 07:00 RBC 4.39 Mil/uL (3.80-5.20) 09/29/18 07:00 Hgb 10.4 g/dL (11.0-16.0) L 09/29/18 07:00 Hct 32.6 % (34.0-47.0) L 09/29/18 07:00 MCV 74.2 fL (81.0-99.0) L 09/29/18 07:00 MCH 23.6 pg (27.0-31.0) L 09/29/18 07:00 MCHC 31.8 g/dL (33.0-37.0) L 09/29/18 07:00 RDW 19.9 % (11.5-14.5) H 09/29/18 07:00 Plt Count 209 K/uL (130-400) 09/29/18 07:00 MPV 8.3 fL (7.2-11.7) 09/29/18 07:00 Neut % (Auto) 55.5 % (50.0-75.0) 09/29/18 07:00 Lymph % (Auto) 27.1 % (20.0-40.0) 09/29/18 07:00 [place] % (Auto) 13.8 % (0.0-10.0) H 09/29/18 07:00 Eos % (Auto) 3.1 % (0.0-4.0) 09/29/18 07:00 Baso % (Auto) 0.5 % (0.0-2.0) 09/29/18 07:00 Neut # (Auto) 3.1 K/uL (1.8-7.0) 09/29/18 07:00 Lymph # (Auto) 1.5 K/uL (1.0-4.3) 09/29/18 07:00 [place] # (Auto) 0.8 K/uL (0.0-0.8) 09/29/18 07:00 Eos # (Auto) 0.2 K/uL (0.0-0.7) 09/29/18 07:00 Baso # (Auto) 0.0 K/uL (0.0-0.2) 09/29/18 07:00 PT 17.5 SECONDS (9.7-12.2) H 09/28/18 06:55 INR 1.6 09/28/18 06:55 APTT 37 SECONDS (21-34) H 09/28/18 06:55 Sodium 137 mmol/L (132-148) 09/29/18 07:00 Potassium 3.2 mmol/L (3.6-5.2) L 09/29/18 07:00 Chloride 104 mmol/L (98-107) 09/29/18 07:00 Carbon Dioxide 28 mmol/L (22-30) 09/29/18 07:00 Anion Gap 9 (10-20) L 09/29/18 07:00 BUN 26 mg/dL (7-17) H 09/29/18 07:00 Creatinine 1.0 mg/dL (0.7-1.2) 09/29/18 07:00 Est GFR ( Amer) > 60 09/29/18 07:00 Est GFR (Non-Af Amer) 54 09/29/18 07:00 POC Glucose (mg/dL) 133 mg/dL (65-110) H 09/29/18 11:53 Random Glucose 112 mg/dL (65-105) H 09/29/18 07:00 Hemoglobin A1c 6.3 % (4.2-6.5) 09/28/18 11:46 Calcium 9.4 mg/dl (8.6-10.4) 09/29/18 07:00 Phosphorus 4.4 mg/dL (2.5-4.5) 09/29/18 07:00 Magnesium 1.8 mg/dL (1.6-2.3) 09/29/18 07:00 Iron 35 ug/dL (37-170) L 09/28/18 20:43 TIBC 377 ug/dL (250-450) 09/28/18 20:43 % Saturation 9 (20-55) L 09/28/18 20:43 Ferritin 11.9 ng/mL 09/28/18 20:43 Total Bilirubin 0.5 mg/dL (0.2-1.3) 09/29/18 07:00 AST 29 U/L (14-36) 09/29/18 07:00 ALT 15 U/L (9-52) 09/29/18 07:00 Alkaline Phosphatase 124 U/L (38-126) 09/29/18 07:00 Total Creatine Kinase 58 U/L (30-135) 09/28/18 20:43 CK-MB (Mass) 0.48 ng/mL (0.0-3.38) 09/28/18 20:43 Troponin I < 0.0120 ng/mL (0.00-0.120) 09/28/18 20:43 NT-Pro-B Natriuret Pep 2010 pg/mL (0-900) H 09/28/18 06:55 Total Protein 6.9 g/dL (6.3-8.3) 09/29/18 07:00 Albumin 3.4 g/dL (3.5-5.0) L 09/29/18 07:00 Globulin 3.5 gm/dL (2.2-3.9) 09/29/18 07:00 Albumin/Globulin Ratio 1.0 (1.0-2.1) 09/29/18 07:00 Triglycerides 156 mg/dL (0-149) H 09/28/18 11:46 Cholesterol 189 mg/dL (0-199) 09/28/18 11:46 LDL Cholesterol Direct 96 mg/dL (0-129) 09/28/18 11:46 HDL Cholesterol 63 mg/dL (30-70) 09/28/18 11:46 Free T4 1.29 ng/dL (0.78-2.19) 09/28/18 11:46 TSH 3rd Generation 2.67 mIU/L (0.46-4.68) 09/28/18 11:46 - Hospital Course Hospital Course: On admission: Patient is a 78 year old female with history of CAD with 2 stents, HTN, CKD with renal transplant, liver transplant, Atrial fibrillation, who presents for chest pain described as feeling that someone is punching her in her chest rated 4/10 associated with lightheadedness and palpitations when she woke up this morning at 5am. She states her chest pain currently is a 2/10, more tolerable. She states her dizziness and palpitations has resolved completely. She states she ate breakfast this morning and developed mild abdominal pain with soft nonbloody stools. She denies fevers, chills, cough, sore throat, blurry vision, changes in hearing, dysuria, leg swelling, leg pain. She admits feeling sad and lonely living alone, stating she think she needs to stay with her daughter who lives in the [facility]. Hospital course: Patient was admitted for atypical chest pain. Patient has a history of Atrial fibrillation and EKG revealed Atrial fibrillation, rate controlled, with no ST depressions or Q waves. Serial cardiac enzymes were within normal limits. Patient's chest pain was reproducible upon palpation of her chest. She was treated Aspirin, Crestor, Labetalol, Norvasc and Eliquis. Recent ECHO from April 2018 revealed EF of 65%. Patient had bilateral lower extremity edema. Lower extremity dopplers did not reveal venous thromboses. Educational Administrator Dr. Cook was consulted who recommended outpatient follow up for stress test. Upon discharge, patient did not have any complaints of chest pain. Patient was noted to have low Magnesium levels on admission, which was repleted and within normal limits before discharge. Patient has a history of anxiety/depression for which patient takes Clonazepam at home. Patient had not been following with a psychiatrist regularly. Psychiatrist Dr. Sultana was consulted, who recommended starting Lexapro and outpatient psychiatric follow up to wean patient off Benzodiazepine. Patient experienced anxiety and insomnia overnight and patient was given Ambien which she takes at home. As per Dr. Ozden, patient has capacity to make decisions for herself. Upon discharge, patient did not have any suicidal or homicidal ideations. Patient is also status post liver transplant and renal transplant, and was continued on Tacrolimus 0.5mg twice daily. Patient's BUN/Creatinine levels were within normal limits. Upon discharge, patient did not experience any complaints of chest pain, lightheadedness or palpitations. Discharge instructions: 1. Schedule appointment with your Educational Administrator Dr. Cook for outpatient stress test. 2. Schedule appointment with cake stripper Dr. Eric. 3. You have been scheduled an appointment at [facility] located at [address] [place] [address] for November 08 2018. Their phone number is [phone]. You will be contacted by someone from [facility] within the next 2 weeks regarding more information. A psychiatrist is available there for further management of your anxiety and to help taper you off Clonazepam. 4. You have been provided with a referral for home physical therapy. 5. Prescriptions provided: Aspirin 81mg 1 tab by mouth once daily at 8am, Disp # 30 Atorvastatin 10mg 1 tab by mouth once daily at 8pm, Disp # 30 Eliquis 2.5mg 1 t ab by mouth twice daily at 8am and 8pm. Disp # 60 Lexapro 5mg 1 tab by mouth once a day at 8am. Disp # 30 Norvasc 10mg 1 tab by mouth once day at 2pm. Disp # 30 Tacrolimus 0.5mg 1 tablet by mouth twice a day at 8am and 8pm. Disp # 60 Trandate 100mg 1 tablet by mouth twice daily at 8am and 8pm. Disp # 60 clonazepam 0.5mg 1 tab by mouht twice daily at 8am and 8pm. Disp # 60 Furosemide 20mg 1 tab by mouth once daily at 2pm. Disp # 30 Zolpidem 5mg 1 tab by mouth at bedtime as needed for sleep. Disp # 15 Discharge Exam - Head Exam Head Exam: ATRAUMATIC, NORMOCEPHALIC - Eye Exam Eye Exam: EOMI, PERRL - ENT Exam ENT Exam: Mucous Membranes Moist - Neck Exam Neck exam: Full Rom - Respiratory Exam Respiratory Exam: Clear to PA & Lateral, NORMAL BREATHING PATTERN. absent: Rales, Rhonchi, Wheezes, Respiratory Distress - Cardiovascular Exam Cardiovascular Exam: REGULAR RHYTHM, +S1, +S2 - GI/Abdominal Exam GI & Abdominal Exam: Normal Bowel Sounds, Soft. absent: Tenderness - Extremities Exam Extremities exam: pedal pulses present - Back Exam Back exam: absent: CVA tenderness (L), CVA tenderness (R) - Neurological Exam Neurological exam: Alert, Oriented x3 - Skin Skin Exam: Dry, Intact, Warm Discharge Plan - Discharge Medications Prescriptions: amLODIPine [Norvasc] 10 mg PO DAILY 30 Days #30 tab Apixaban [Eliquis] 2.5 mg PO BID 30 Days #60 tablet Aspirin [Aspirin Chewable] 81 mg PO DAILY #30 chew Atorvastatin [Lipitor] 10 mg PO DAILY #30 tab Clonazepam 0.5 mg PO BID #60 tablet Escitalopram [Lexapro] 5 mg PO DAILY #30 tab Furosemide [Lasix] 20 mg PO DAILY #30 tab Labetalol [Trandate] 100 mg PO BID #60 tab Tacrolimus 0.5 mg PO BID #60 capsule Zolpidem [Ambien] 5 mg PO HS PRN #15 tab PRN Reason: Insomnia - Follow Up Plan Condition: STABLE Disposition: HOME/ ROUTINE Instructions: Anxiety, Adult (DC), Chest Pain (DC) Additional Instructions: 1. Schedule appointment with your Educational Administrator Dr. Cook for outpatient stress test. 2. Schedule appointment with cake stripper Dr. Eric. 3. You have been scheduled an appointment at [facility] located at [address] [place] [address] for November 08 2018. Their phone number is [phone]. You will be contacted by someone from [facility] within the next 2 weeks regarding more information. A psychiatrist is available there for further management of your anxiety and to help taper you off Clonazepam. 4. You have been provided with a referral for home physical therapy. 5. Prescriptions provided: Aspirin 81mg 1 tab by mouth once daily at 8am, Disp # 30 Atorvastatin 10mg 1 tab by mouth once daily at 8pm, Disp # 30 Eliquis 2.5mg 1 t ab by mouth twice daily at 8am and 8pm. Disp # 60 Lexapro 5mg 1 tab by mouth once a day at 8am. Disp # 30 Norvasc 10mg 1 tab by mouth once day at 2pm. Disp # 30 Tacrolimus 0.5mg 1 tablet by mouth twice a day at 8am and 8pm. Disp # 60 Trandate 100mg 1 tablet by mouth twice daily at 8am and 8pm. Disp # 60 clonazepam 0.5mg 1 tab by mouht twice daily at 8am and 8pm. Disp # 60 Furosemide 20mg 1 tab by mouth once daily at 2pm. Disp # 30 Zolpidem 5mg 1 tab by mouth at bedtime as needed for sleep. Disp # 15 Referrals: Allyn Sultana MD [Staff Provider] - Walter Cook MD [Staff Provider] - <Rudy Torres - Last Filed: 09/29/18 19:55> Provider - Provider Date of Admission: 09/28/18 08:21 Attending physician: Rudy Torres MD Consults: 09/28/18 09:39 Physician Consult Routine Comment: Consulting Provider: Walter Cook Consulting Physician: Walter Cook Reason for Consult: chest pain, history of CAD with stents 09/28/18 10:43 Case Management Referral Routine Comment: Physician Instructions: Reason For Exam: Reason for Referral: Discharge Planning 09/28/18 10:44 Physician Consult Routine Comment: Consulting Provider: Allyn Sultana Consulting Physician: Allyn Sultana Reason for Consult: SSRI recommmended? Hospital Course - Lab Results Lab Results: Most Recent Lab Values WBC 5.5 K/uL (4.8-10.8) 09/29/18 07:00 RBC 4.39 Mil/uL (3.80-5.20) 09/29/18 07:00 Hgb 10.4 g/dL (11.0-16.0) L 09/29/18 07:00 Hct 32.6 % (34.0-47.0) L 09/29/18 07:00 MCV 74.2 fL (81.0-99.0) L 09/29/18 07:00 MCH 23.6 pg (27.0-31.0) L 09/29/18 07:00 MCHC 31.8 g/dL (33.0-37.0) L 09/29/18 07:00 RDW 19.9 % (11.5-14.5) H 09/29/18 07:00 Plt Count 209 K/uL (130-400) 09/29/18 07:00 MPV 8.3 fL (7.2-11.7) 09/29/18 07:00 Neut % (Auto) 55.5 % (50.0-75.0) 09/29/18 07:00 Lymph % (Auto) 27.1 % (20.0-40.0) 09/29/18 07:00 [place] % (Auto) 13.8 % (0.0-10.0) H 09/29/18 07:00 Eos % (Auto) 3.1 % (0.0-4.0) 09/29/18 07:00 Baso % (Auto) 0.5 % (0.0-2.0) 09/29/18 07:00 Neut # (Auto) 3.1 K/uL (1.8-7.0) 09/29/18 07:00 Lymph # (Auto) 1.5 K/uL (1.0-4.3) 09/29/18 07:00 [place] # (Auto) 0.8 K/uL (0.0-0.8) 09/29/18 07:00 Eos # (Auto) 0.2 K/uL (0.0-0.7) 09/29/18 07:00 Baso # (Auto) 0.0 K/uL (0.0-0.2) 09/29/18 07:00 PT 17.5 SECONDS (9.7-12.2) H 09/28/18 06:55 INR 1.6 09/28/18 06:55 APTT 37 SECONDS (21-34) H 09/28/18 06:55 Sodium 137 mmol/L (132-148) 09/29/18 07:00 Potassium 3.2 mmol/L (3.6-5.2) L 09/29/18 07:00 Chloride 104 mmol/L (98-107) 09/29/18 07:00 Carbon Dioxide 28 mmol/L (22-30) 09/29/18 07:00 Anion Gap 9 (10-20) L 09/29/18 07:00 BUN 26 mg/dL (7-17) H 09/29/18 07:00 Creatinine 1.0 mg/dL (0.7-1.2) 09/29/18 07:00 Est GFR ( Amer) > 60 09/29/18 07:00 Est GFR (Non-Af Amer) 54 09/29/18 07:00 POC Glucose (mg/dL) 123 mg/dL (65-110) H 09/29/18 16:19 Random Glucose 112 mg/dL (65-105) H 09/29/18 07:00 Hemoglobin A1c 6.3 % (4.2-6.5) 09/28/18 11:46 Calcium 9.4 mg/dl (8.6-10.4) 09/29/18 07:00 Phosphorus 4.4 mg/dL (2.5-4.5) 09/29/18 07:00 Magnesium 1.8 mg/dL (1.6-2.3) 09/29/18 07:00 Iron 35 ug/dL (37-170) L 09/28/18 20:43 TIBC 377 ug/dL (250-450) 09/28/18 20:43 % Saturation 9 (20-55) L 09/28/18 20:43 Ferritin 11.9 ng/mL 09/28/18 20:43 Total Bilirubin 0.5 mg/dL (0.2-1.3) 09/29/18 07:00 AST 29 U/L (14-36) 09/29/18 07:00 ALT 15 U/L (9-52) 09/29/18 07:00 Alkaline Phosphatase 124 U/L (38-126) 09/29/18 07:00 Total Creatine Kinase 58 U/L (30-135) 09/28/18 20:43 CK-MB (Mass) 0.48 ng/mL (0.0-3.38) 09/28/18 20:43 Troponin I < 0.0120 ng/mL (0.00-0.120) 09/28/18 20:43 NT-Pro-B Natriuret Pep 2010 pg/mL (0-900) H 09/28/18 06:55 Total Protein 6.9 g/dL (6.3-8.3) 09/29/18 07:00 Albumin 3.4 g/dL (3.5-5.0) L 09/29/18 07:00 Globulin 3.5 gm/dL (2.2-3.9) 09/29/18 07:00 Albumin/Globulin Ratio 1.0 (1.0-2.1) 09/29/18 07:00 Triglycerides 156 mg/dL (0-149) H 09/28/18 11:46 Cholesterol 189 mg/dL (0-199) 09/28/18 11:46 LDL Cholesterol Direct 96 mg/dL (0-129) 09/28/18 11:46 HDL Cholesterol 63 mg/dL (30-70) 09/28/18 11:46 Free T4 1.29 ng/dL (0.78-2.19) 09/28/18 11:46 TSH 3rd Generation 2.67 mIU/L (0.46-4.68) 09/28/18 11:46 Attending/Attestation - Attestation I have personally seen and examined this patient.: Yes I have fully participated in the care of the patient.: Yes I have reviewed all pertinent clinical information, including history, physical exam and plan: Yes Notes (Text): 09/29/18 19:53 Patient was seen shortly after resident Dr. Ellsworth. Discussed patient with Psychiatrist Dr. Sultana and he felt that patient had capac ity to make her own decision despite have memory deficits and I would have to agree with him. I spoke with [facility] and made appointment for patient as mentioned above. [facility] appointment information was provided to [employer] Closing Machine Operator Carey. Discharge instructions and medications were gone over with Dr. Ellsworth. Rudy Torres D.O.
[2018-09-29 16:31] VITALS: PULSE 67
--- NOTE | 2018-09-29 18:56 | PN ---
DATE: 09/29/2018 SUBJECTIVE: The patient denied any chest pain or shortness of breath. The patient was evaluated by the psychiatrist Dr. Sultana. The patient apparently had an argument with her daughter and she just wanted to go home today. She denied any chest pain, dizziness, or palpitations. PHYSICAL EXAMINATION: VITAL SIGNS: Blood pressure 152/69, heart rate 79, temperature 97.2, respirations 18. HEENT: Normocephalic. CHEST: Clear. HEART: S1 and S2 irregular. ABDOMEN: Soft. EXTREMITIES: No edema. LABORATORY DATA: Today's hemoglobin and hematocrit are 10.4 and 32.6. White count and platelet count are within normal limits. Today's SMA-7: Sodium 137, potassium 3.2, chloride 104, CO2 of 28, glucose of 112, BUN 26, creatinine 1. Official report of venous Doppler of the lower extremity, no evidence of DVT in either lower extremity. ASSESSMENT: 1. Chest pain, myocardial infarction was ruled out. 2. Paroxysmal atrial fibrillation. 3. Mild anemia. 4. Anxiety disorder. 5. History of liver and kidney transplant. 6. Hypokalemia. RECOMMENDATIONS: Continue aspirin 81 mg once a day, Eliquis 2.5 mg twice a day, Norvasc 10 mg once a day, Prograf 2.5 mg once a day, Trandate 100 mg twice a day. Discontinue oral Lasix. The patient did receive K-Dur 40 mEq oral yesterday. Obtain a followup BMP. Walter Cook MD
--- NOTE | 2018-09-29 19:53 | CARD ---
APPROVED REPORT Date of service: 09/28/2018 EKG Measurement Heart [id number] <Conclusion> Atrial fibrillation with premature ventricular or aberrantly conducted complexes Nonspecific ST and T wave abnormality Prolonged QT Abnormal ECG
== END 2018-09-29 16:33 | disposition home or self-care (01) ==
LOC: C.ER 06:22 → C.9E 08:21 → C.5S 09:36
PROVIDERS: ADMIT Family Medicine; ATTEND Family Medicine
DX: R07.89 Other chest pain (principal); D64.9 Anemia, unspecified; E87.6 Hypokalemia; F32.9 Major depressive disorder, single episode, unspecified; G47.00 Insomnia, unspecified; F41.9 Anxiety disorder, unspecified; I12.9 Hypertensive chronic kidney disease with stage 1 through stage 4 chronic kidney disease, or unspecified chronic kidney disease; I25.10 Atherosclerotic heart disease of native coronary artery without angina pectoris; I48.0 Paroxysmal atrial fibrillation; N18.9 Chronic kidney disease, unspecified; Z94.0 Kidney transplant status; Z94.4 Liver transplant status; Z95.5 Presence of coronary angioplasty implant and graft
CPT/HCPCS: 36415; 71045; 80053; 80061; 82728; 82948; 83036; 83540; 83550; 83735; 83880; 84100; 84439; 84443; 84484; 85025; 85610; 85730; 93005; 93970; 96365; 97116; 97162; 97165; 97530; 99285; G0378; G8978; G8979; G8987; G8988; G8989; J1885; J3475; J7507